=== PATIENT | female | born 1935 | race Caucasian/White ===

== ENCOUNTER → 2021-10-22 09:13 | Outpatient (BNVA) | payer MEDICARE, OTHER, SELFPAY | PROVIDERS: Visit Provider Internal Medicine | DX: D68.51 Activated protein C resistance (principal); Z51.81 Encounter for therapeutic drug level monitoring; Z79.01 Long term (current) use of anticoagulants | CPT/HCPCS: 85610; 99202 ==

== ENCOUNTER → 2021-10-26 09:34 | Outpatient (BNVA) | payer MEDICARE, OTHER, SELFPAY | PROVIDERS: Visit Provider Internal Medicine | DX: D68.51 Activated protein C resistance (principal); Z51.81 Encounter for therapeutic drug level monitoring; Z79.01 Long term (current) use of anticoagulants | CPT/HCPCS: 85610; 99211 ==

== ENCOUNTER → 2021-10-29 09:42 | Outpatient (BNVA) | payer MEDICARE, OTHER, SELFPAY | PROVIDERS: Visit Provider Internal Medicine | DX: D68.51 Activated protein C resistance (principal); Z51.81 Encounter for therapeutic drug level monitoring; Z79.01 Long term (current) use of anticoagulants | CPT/HCPCS: 85610; 99211 ==

== ENCOUNTER → 2021-11-04 10:19 | Outpatient (BNVA) | payer MEDICARE, OTHER, SELFPAY | PROVIDERS: Visit Provider Internal Medicine | DX: D68.51 Activated protein C resistance (principal); Z79.01 Long term (current) use of anticoagulants; Z51.81 Encounter for therapeutic drug level monitoring | CPT/HCPCS: 85610; 99212 ==

== ENCOUNTER → 2021-11-08 08:43 | Outpatient (BNVA) | payer MEDICARE, OTHER, SELFPAY | PROVIDERS: Visit Provider Internal Medicine | DX: D68.51 Activated protein C resistance (principal); Z79.01 Long term (current) use of anticoagulants; Z51.81 Encounter for therapeutic drug level monitoring | CPT/HCPCS: 85610; 99211 ==

== ENCOUNTER → 2021-11-15 09:29 | Outpatient (BNVA) | payer MEDICARE, OTHER, SELFPAY | PROVIDERS: Visit Provider Internal Medicine | DX: D68.51 Activated protein C resistance (principal); Z51.81 Encounter for therapeutic drug level monitoring; Z79.01 Long term (current) use of anticoagulants | CPT/HCPCS: 85610; 99212 ==

== ENCOUNTER → 2021-11-18 09:25 | Outpatient (BNVA) | payer MEDICARE, OTHER, SELFPAY | PROVIDERS: Visit Provider Internal Medicine | DX: D68.51 Activated protein C resistance (principal); Z79.01 Long term (current) use of anticoagulants; Z51.81 Encounter for therapeutic drug level monitoring | CPT/HCPCS: 85610; 99211 ==

== ENCOUNTER → 2021-11-23 09:25 | Outpatient (BNVA) | payer MEDICARE, OTHER, SELFPAY | PROVIDERS: Visit Provider Internal Medicine | DX: D68.51 Activated protein C resistance (principal); Z51.81 Encounter for therapeutic drug level monitoring; Z79.01 Long term (current) use of anticoagulants | CPT/HCPCS: 85610; 99211 ==

== ENCOUNTER 2021-11-26 11:38 | Outpatient (REF) | payer MEDICARE, OTHER, SELFPAY ==
[2021-11-26 12:20] LABS: Hematocrit 38.8 % (37.0-47.0); Hemoglobin 12.8 g/dl (12.0-16.0); Mean Corpuscular Hemoglobin 29.6 pg (27.0-33.0); Mean Corpuscular Volume 89.8 fL (80.0-98.0); Mean Platelet Volume 11.4 fL (9.4-12.3); Platelet Count 284 X10*3/uL (160-400); Red Blood Count 4.32 X10*6/uL (4.20-5.50); Red Cell Distribution Width 13.1 % (11.0-16.0); White Blood Count 8.2 X10*3/uL (4.8-10.8)
[2021-11-26 12:26] LABS: INTERNATIONAL NORM RATIO 1.5 (0.9-1.1); Prothrombin Time 17.3 SEC (10.0-13.1)
[2021-11-26 12:45] LABS: Anion Gap 14 (12-20); Blood Urea Nitrogen 19 mg/dL (9-16); Calcium 9.5 mg/dL (8.4-10.2); Carbon Dioxide 26 mmol/L (22-29); Chloride 105 mmol/L (96-108); Estimated Glomerular Filt Rate > 60; Glucose Random 84 mg/dL (60-115); Potassium 4.2 mmol/L (3.3-5.1); Sodium 141 mmol/L (135-145)
== END 2021-11-26 11:39 | disposition home or self-care (01) ==
LOC: HO.LAB 11:38
PROVIDERS: Visit Provider Internal Medicine
DX: D68.51 Activated protein C resistance (principal); Z51.81 Encounter for therapeutic drug level monitoring; Z79.01 Long term (current) use of anticoagulants
CPT/HCPCS: 36415; 80048; 85027; 85610; 99212

== ENCOUNTER → 2021-12-03 10:08 | Outpatient (BNVA) | payer MEDICARE, OTHER, SELFPAY | PROVIDERS: PCP Internal Medicine Nephrology; Visit Provider Internal Medicine | DX: D68.51 Activated protein C resistance (principal); Z79.01 Long term (current) use of anticoagulants; Z51.81 Encounter for therapeutic drug level monitoring | CPT/HCPCS: 85610; 99211 ==

== ENCOUNTER → 2021-12-10 10:05 | Outpatient (BNVA) | payer MEDICARE, OTHER, SELFPAY | PROVIDERS: PCP Internal Medicine Nephrology; Visit Provider Internal Medicine | DX: D68.51 Activated protein C resistance (principal); Z79.01 Long term (current) use of anticoagulants; Z51.81 Encounter for therapeutic drug level monitoring | CPT/HCPCS: 85610; 99211 ==

== ENCOUNTER → 2021-12-24 09:56 | Outpatient (BNVA) | payer MEDICARE, OTHER, SELFPAY | PROVIDERS: PCP Internal Medicine Nephrology; Visit Provider Internal Medicine | DX: D68.51 Activated protein C resistance (principal); Z79.01 Long term (current) use of anticoagulants; Z51.81 Encounter for therapeutic drug level monitoring | CPT/HCPCS: 85610; 99211 ==

== ENCOUNTER → 2022-01-10 09:45 | Outpatient (BNVA) | payer MEDICARE, OTHER, SELFPAY | PROVIDERS: PCP Internal Medicine Nephrology; Visit Provider Internal Medicine | DX: D68.51 Activated protein C resistance (principal); Z79.01 Long term (current) use of anticoagulants; Z51.81 Encounter for therapeutic drug level monitoring | CPT/HCPCS: 85610; 99211 ==

== ENCOUNTER → 2022-01-31 10:00 | Outpatient (BNVA) | payer MEDICARE, OTHER, SELFPAY | PROVIDERS: PCP Internal Medicine Nephrology; Visit Provider Internal Medicine | DX: D68.51 Activated protein C resistance (principal); Z79.01 Long term (current) use of anticoagulants; Z51.81 Encounter for therapeutic drug level monitoring | CPT/HCPCS: 85610; 99211 ==

== ENCOUNTER → 2022-02-14 09:47 | Outpatient (BNVA) | payer MEDICARE, OTHER, SELFPAY | PROVIDERS: PCP Internal Medicine Nephrology; Visit Provider Internal Medicine | DX: D68.51 Activated protein C resistance (principal); Z79.01 Long term (current) use of anticoagulants; Z51.81 Encounter for therapeutic drug level monitoring | CPT/HCPCS: 85610; 99211 ==

== ENCOUNTER → 2022-03-01 09:49 | Outpatient (BNVA) | payer MEDICARE, OTHER, SELFPAY | PROVIDERS: PCP Internal Medicine Nephrology; Visit Provider Internal Medicine | DX: D68.51 Activated protein C resistance (principal); Z79.01 Long term (current) use of anticoagulants; Z51.81 Encounter for therapeutic drug level monitoring | CPT/HCPCS: 85610; 99211 ==

== ENCOUNTER → 2022-03-23 10:16 | Outpatient (BNVA) | payer MEDICARE, OTHER, SELFPAY | PROVIDERS: PCP Internal Medicine Nephrology; Visit Provider Internal Medicine | DX: D68.51 Activated protein C resistance (principal); Z79.01 Long term (current) use of anticoagulants; Z51.81 Encounter for therapeutic drug level monitoring | CPT/HCPCS: 85610; 99211 ==

== ENCOUNTER → 2022-04-19 09:59 | Outpatient (BNVA) | payer MEDICARE, OTHER, SELFPAY | PROVIDERS: PCP Internal Medicine; Visit Provider Internal Medicine | DX: D68.51 Activated protein C resistance (principal); Z79.01 Long term (current) use of anticoagulants; Z51.81 Encounter for therapeutic drug level monitoring | CPT/HCPCS: 85610; 99211 ==

== ENCOUNTER 2022-05-07 11:54 | Outpatient (REF) | payer MEDICARE, OTHER, SELFPAY ==
[2022-05-07 13:57] LABS: Appearance Urine Cloudy; Color Urine Yellow; Glucose Urine UA Negative (Negative); Leukocyte Esterase Urine Large (3+) (Negative); Nitrite Urine Negative (Negative); Specific Gravity - Urine <= 1.005 (1.005-1.025); UMIC TRIGGER UACC YES; Urine Blood Negative (Negative); Urine Ketones Negative (Negative); Urine Protein Negative (Neg-Trace)
[2022-05-07 14:03] LABS: Bacteria Urine 4+ (None Seen); Hyaline Casts Urine 0-2 /LPF (0-2); Squamous Epithelial Cell Urine 0-2 /HPF (0-2); UACC Culture Trigger YES; WBC Urine >50 /HPF (0-5)
== END 2022-05-07 11:55 | disposition home or self-care (01) ==
LOC: HO.HMGCLDS 11:54
PROVIDERS: PCP Internal Medicine; Visit Provider Internal Medicine
DX: N18.30 Chronic kidney disease, stage 3 unspecified (principal); R82.90 Unspecified abnormal findings in urine
CPT/HCPCS: 81001; 87086

== ENCOUNTER → 2022-05-09 11:18 | Outpatient (BNVA) | payer MEDICARE, OTHER, SELFPAY | PROVIDERS: PCP Internal Medicine; Visit Provider Internal Medicine | DX: Z79.01 Long term (current) use of anticoagulants (principal) ==

== ENCOUNTER → 2022-05-17 09:57 | Outpatient (BNVA) | payer MEDICARE, OTHER, SELFPAY | PROVIDERS: PCP Internal Medicine; Visit Provider Internal Medicine | DX: D68.51 Activated protein C resistance (principal); Z79.01 Long term (current) use of anticoagulants; Z51.81 Encounter for therapeutic drug level monitoring | CPT/HCPCS: 85610; 99211 ==

== ENCOUNTER → 2022-05-31 10:13 | Outpatient (BNVA) | payer MEDICARE, OTHER, SELFPAY | PROVIDERS: PCP Internal Medicine; Visit Provider Internal Medicine | DX: D68.51 Activated protein C resistance (principal); Z51.81 Encounter for therapeutic drug level monitoring; Z79.01 Long term (current) use of anticoagulants | CPT/HCPCS: 85610; 99211 ==

== ENCOUNTER → 2022-06-21 08:47 | Outpatient (BNVA) | payer MEDICARE, OTHER, SELFPAY | PROVIDERS: PCP Internal Medicine; Visit Provider Internal Medicine | DX: D68.51 Activated protein C resistance (principal); Z79.01 Long term (current) use of anticoagulants; Z51.81 Encounter for therapeutic drug level monitoring | CPT/HCPCS: 85610; 99211 ==

== ENCOUNTER → 2022-07-12 10:15 | Outpatient (BNVA) | payer MEDICARE, OTHER, SELFPAY | PROVIDERS: PCP Internal Medicine; Visit Provider Internal Medicine | DX: D68.51 Activated protein C resistance (principal); Z79.01 Long term (current) use of anticoagulants; Z51.81 Encounter for therapeutic drug level monitoring | CPT/HCPCS: 85610; 99211 ==

== ENCOUNTER 2022-07-19 10:04 | Outpatient (REF) | payer MEDICARE, OTHER, SELFPAY ==
[2022-07-19 10:12] LABS: Appearance Urine Cloudy; Color Urine Yellow; Glucose Urine UA Negative (Negative); Leukocyte Esterase Urine Large (3+) (Negative); Nitrite Urine Negative (Negative); Specific Gravity - Urine 1.015 (1.005-1.025); UMIC TRIGGER UACC YES; Urine Blood Trace (Negative); Urine Ketones Negative (Negative); Urine Protein Negative (Neg-Trace)
[2022-07-19 10:17] LABS: Bacteria Urine 1+ (None Seen); Hyaline Casts Urine 0-2 /LPF (0-2); RBC Urine 0-2 /HPF (0-2); Squamous Epithelial Cell Urine 0-2 /HPF (0-2); UACC Culture Trigger YES; WBC Urine >50 /HPF (0-5)
== END 2022-07-19 10:05 | disposition home or self-care (01) ==
LOC: HO.LNP 10:04
PROVIDERS: Visit Provider Internal Medicine
DX: N18.30 Chronic kidney disease, stage 3 unspecified (principal); R82.90 Unspecified abnormal findings in urine
CPT/HCPCS: 81001; 87086

== ENCOUNTER → 2022-08-09 10:16 | Outpatient (BNVA) | payer MEDICARE, OTHER, SELFPAY | PROVIDERS: PCP Internal Medicine; Visit Provider Internal Medicine | DX: D68.51 Activated protein C resistance (principal); Z79.01 Long term (current) use of anticoagulants; Z51.81 Encounter for therapeutic drug level monitoring | CPT/HCPCS: 85610; 99211 ==

== ENCOUNTER → 2022-08-23 10:06 | Outpatient (BNVA) | payer MEDICARE, OTHER, SELFPAY | PROVIDERS: PCP Internal Medicine; Visit Provider Internal Medicine | DX: D68.51 Activated protein C resistance (principal); Z79.01 Long term (current) use of anticoagulants; Z51.81 Encounter for therapeutic drug level monitoring | CPT/HCPCS: 85610; 99211 ==

== ENCOUNTER 2022-09-19 09:32 | Outpatient (REF) | payer MEDICARE, OTHER, SELFPAY ==
[2022-09-19 11:46] LABS: Anion Gap 12 (12-20); Blood Urea Nitrogen 26 mg/dL (9-16); Calcium 9.4 mg/dL (8.4-10.2); Carbon Dioxide 27 mmol/L (22-29); Chloride 110 mmol/L (96-108); Cholesterol 242 mg/dL; Estimated Glomerular Filt Rate > 60; Glucose Fasting 78 mg/dL (60-99); HDL Cholesterol 63 mg/dL; LDL Cholesterol Calculated 165 mg/dl; Potassium 4.2 mmol/L (3.3-5.1); Sodium 145 mmol/L (135-145); Triglycerides 70 mg/dL
[2022-09-20 12:34] LABS: Appearance Urine Cloudy; Color Urine Yellow; Glucose Urine UA Negative (Negative); Leukocyte Esterase Urine Large (3+) (Negative); Nitrite Urine Negative (Negative); PH 7.5 (5.0-9.0); UMIC TRIGGER UACC YES; Urine Blood Negative (Negative); Urine Ketones Negative (Negative); Urine Protein Negative (Neg-Trace)
[2022-09-20 12:45] LABS: Bacteria Urine 1+ (None Seen); Hyaline Casts Urine 0-2 /LPF (0-2); RBC Urine 0-2 /HPF (0-2); UACC Culture Trigger YES; WBC Urine 0-5 /HPF (0-5)
== END 2022-09-19 09:33 | disposition home or self-care (01) ==
LOC: HO.LAB 09:32
PROVIDERS: Internal Medicine; PCP Nurse Practitioner Family; Visit Provider Nurse Practitioner Family
DX: N18.30 Chronic kidney disease, stage 3 unspecified (principal); R82.90 Unspecified abnormal findings in urine; Z13.1 Encounter for screening for diabetes mellitus; Z13.220 Encounter for screening for lipoid disorders
CPT/HCPCS: 36415; 80048; 80061; 81001; 81003; 87086

== ENCOUNTER → 2022-09-20 09:39 | Outpatient (BNVA) | payer MEDICARE, OTHER, SELFPAY | PROVIDERS: PCP Nurse Practitioner Family; Visit Provider Internal Medicine | DX: D68.51 Activated protein C resistance (principal); Z79.01 Long term (current) use of anticoagulants; Z51.81 Encounter for therapeutic drug level monitoring | CPT/HCPCS: 85610; 99211 ==

== ENCOUNTER → 2022-09-23 09:56 | Outpatient (BNVA) | payer MEDICARE, OTHER, SELFPAY | PROVIDERS: PCP Nurse Practitioner Family; Visit Provider Internal Medicine | DX: D68.51 Activated protein C resistance (principal); Z79.01 Long term (current) use of anticoagulants; Z51.81 Encounter for therapeutic drug level monitoring | CPT/HCPCS: 85610; 99211 ==

== ENCOUNTER → 2022-10-07 09:46 | Outpatient (BNVA) | payer MEDICARE, OTHER, SELFPAY | PROVIDERS: PCP Nurse Practitioner Family; Visit Provider Internal Medicine | DX: D68.51 Activated protein C resistance (principal); Z79.01 Long term (current) use of anticoagulants; Z51.81 Encounter for therapeutic drug level monitoring | CPT/HCPCS: 85610; 99211 ==

== ENCOUNTER 2022-10-28 09:54 | Outpatient (AMB) | payer MEDICARE, OTHER, SELFPAY ==
[2022-10-28 10:19] LABS: Prothrombin Time Whole Bld POC 36.9 sec (11.1-13.5); ~PT, ~INR - Anti Coag Clinic 3.1 (0.9-1.1)
--- NOTE | 2022-10-28 10:20 | MHC.OFFVISCO ---
Intake Intake Visit Reasons: Anticoagulation Allergies No Known Allergies Allergy (Verified 10/28/22 10:05) Medication List - Last Reconciled 10/28/22 by Elisa Barrios RN cholecalciferol (vitamin D3) PO denosumab (Prolia) 60 mg subcut [id number] losartan-hydrochlorothiazide 50-12.5 mg 1 tab PO DAILY 90 days [magnesium PO] warfarin 3 mg See Protocol PO .QD 90 days zolpidem 5 mg PO BEDTIME PRN Nursing Note INR: 3.0 in therapeutic range Medications and supplements reviewed No changes in health, diet, medications, or supplements, Denies any signs and symptoms of bleeding or bruising or clotting. Bleeding, bruising, clotting discussed Nutritional guidance given - EAT THE GREENS OR BLUEBERRIES YOU LIKE WEEKLY - HAS BOOST DAILY Dose: 3MG DAILY F/U INR: 3 WEEKS Patient verbalizes understanding of instructions given Anti-Coag Initial Assessment Social Hx Patient Tobacco Use Status: Never used Tobacco alcohol intake: current Alcohol intake frequency: a few times a month Cardiovascular Hx: HTN Lung Disease HX: DVT/PE Musculoskeletal Hx: Arthritis and Osteoporosis Hx: Kidney Disease (MONITORING) Cancer HX: No Psych. Illness/Depression: No Coding Level of Care Code Est Patient Level 1 Diagnoses Current use of anticoagulant therapy Z79.01 Results AMB INR Fingerstick AMB INR Fingerstick 3.0 Last Edit by Elisa Barrios RN on 10/28/22 10:12 [facility] [place] Assessment & Plan Assessment & Plan (1) Current use of anticoagulant therapy: Code(s): Z79.01 - assisted (current) use of anticoagulants Category: Medical Medications: New food supplemt, lactose-reduced (Boost) PO
== END 2022-10-28 10:21 | disposition home or self-care (01) ==
LOC: HO.ACS 09:54
PROVIDERS: PCP Nurse Practitioner Family; Visit Provider Internal Medicine
DX: Z79.01 Long term (current) use of anticoagulants (principal)

== ENCOUNTER → 2022-10-28 09:54 | Outpatient (BNVA) | payer MEDICARE, OTHER, SELFPAY | PROVIDERS: PCP Nurse Practitioner Family; Visit Provider Internal Medicine | DX: D68.51 Activated protein C resistance (principal); Z79.01 Long term (current) use of anticoagulants; Z51.81 Encounter for therapeutic drug level monitoring | CPT/HCPCS: 85610; 99211 ==

== ENCOUNTER → 2022-11-04 08:48 | Outpatient (REF) | payer MEDICARE, OTHER, SELFPAY ==
--- NOTE | 2022-11-04 08:51 | HM_ITS ---
* Total monitoring time 2 days and 13 hours. * Average ventricular rate 55/Min. Range 35 to 130/Min. * About 77% of the time, rate less than 60/Min. * Rare PACs. * Rare PVCs. Some couplets. Overall very low burden. * No significant pauses or AV blocks. * No patient markers or events in diary. MTDD
--- NOTE | 2022-11-04 08:51 | CA_ITS ---
Transthoracic Echocardiogram Patient (Last, First, Middle): Nanda Maher, Gender: Female Date of : 1935 Age: 86 Procedure Date: 11/04/2022 Procedure Type: Transthoracic Echocardiogram Location: OP Height: 149.86 cm Weight: 50.8 kg BSA: 1.44 m2 Heart Rate: 58 bpm BP: 130 / 80 mmHg Tool Shaper Setup Operator: SB Referring MD: Scarlet Washington MD Symptoms: R00.2 - Palpitations Study Quality: Adequate ECG Rhythm: Bradycardia Conclusions: - Normal left ventricular size, thickness, systolic function, and wall motion. The visually estimated ejection fraction is between 60-65%. - Normal right ventricular cavity size and systolic function. - No significant valvular or pericardial pathology. Findings Left Ventricle Normal left ventricular size, thickness, systolic function, and wall motion. The visually estimated ejection fraction is between 60-65%. Abnormal diastolic function is noted. Spectral Doppler is indicative of an impaired relaxation filling pattern. E/E prime ratio is between 8 and 15 consistent with indeterminate filling pressures. Right Ventricle Normal right ventricular cavity size and systolic function. Atria The left atrium is normal in size. The right atrium is normal in size. Aortic Valve There is a normal trileaflet aortic valve. There is no aortic valve stenosis. There is mild aortic valve regurgitation. Mitral Valve The mitral valve appears normal. There is no mitral valve regurgitation. There is no mitral valve stenosis. Pulmonic Valve Normal pulmonic valve structure and function. There is trace to mild pulmonic valve regurgitation. Tricuspid Valve Normal tricuspid valve structure. There is mild tricuspid valve regurgitation. Normal right atrial pressure. There is no evidence of pulmonary hypertension. Great Vessels All visible segments of the aorta are normal in size. The visualized portions of the pulmonary artery and branches are normal. Venous The inferior vena cava is normal in size and collapses greater than 50% with inspiration. Pericardium/Pleural There is no evidence of pericardial effusion. Prior Study Comparison No prior study available for comparison. Measurements 2D Linear Measurements IVSd: 1.15 0.6-0.9/0.6-1.0 cm LVIDd: 3.88 3.9-5.3/4.2-5.9 cm LVIDd Index: 2.69 2.4-3.2/2.2-3.1 cm/m2 LVIDs: 2.19 2.0-3.6 cm LVPWd: 0.55 0.7-1.1 cm LA Diam: 3.30 2.7-3.8/3.0-4.0 cm LAIDs Index: 2.29 1.5-2.3 cm/m2 LV Mass: 119.85 67-162/88-224 g LV Mass Index: 83.23 43-95/49-115 g/m2 LVOT Diam: 1.80 3.0+(-)1.3 cm 2D Systolic Function EF 4C: 60.30 >55% EF 2C: 56.80 >55% EF BiP: 58.60 >55% Mitral Valve MV Pk E: 0.56 MV PK A: 0.86 MV Decel Time: 204.00 E/A: 0.60 E'Lateral: 5.44 E'Medial: 4.90 E/E' Med: 11.40 E/E' Lat: 10.20 PHT: 60.00 MVA PHT: 3.67 Decel Gaston: 2.73 Aortic Valve AoV Pk Jer: 1.51 AoV Mn Jer: 0.96 AoV VTI: 0.32 AoV Pk Grad: 9.00 Aov Mn Grad: 5.00 COOKIE Cont.VTI: 1.78 AI Pk Jer: 3.80 AI Gaston: 1.63 LVOT LVOT Pk Jer: 0.99 LVOT Mn Jer: 0.66 LVOT VTI: 0.23 LVOT Pk Grad: 4.00 LVOT Mn Grad: 2.00 LVOT Diam: 1.80 LVOT Area: 2.54 Diastolic Function MV Pk E: 0.56 MV Pk A: 0.86 E/A: 0.60 E'Medial: 4.90 E/E' Med: 11.40 E' Laterial: 5.44 E/E' Lat: 10.20 Right Ventricle TAPSE (mm): 20.40 TVS' Jer: 11.40 Tricuspid Valve TR Pk Jer: 2.32 TR Pk Grad: 22.00 RA Press: 3.00 RVSP: 25.00 Great Vessels Aorta Sinus of Valsalva: 2.70 2.0-3.5 cm Ao Asc: 3.10 2.1-3.4 cm Pulmonary Veins Pulm Vein S/D 1.40 Pulmonary Valve PV Pk Jer: 0.79 Peak PV Grad: 3.00 Updated in Other Vendor System with Status of Final Weston Lin MD electronically signed on 11/06/2022 9:34:32 PM with status of Final
--- NOTE | 2022-11-04 08:51 | ECG_ITS ---
Test Reason : PALPITATIOS Blood Pressure : / mmHG Vent. Rate : 050 BPM Atrial Rate : 050 BPM P-R Int : 158 ms QRS Dur : 088 ms QT Int : 424 ms P-R-T Axes : 042 -17 017 degrees QTc Int : 386 ms Sinus bradycardia Otherwise normal ECG No previous ECGs available Referred By: Scarlet Washington Electronically Signed By:Weston Lin
== END ==
LOC: HO.CARD 08:48
PROVIDERS: PCP Nurse Practitioner Family; Visit Provider Internal Medicine
DX: R00.2 Palpitations (principal); I10 Essential (primary) hypertension
CPT/HCPCS: 93005; 93242; 93306

== ENCOUNTER → 2022-11-04 08:51 | Outpatient (BNV) | payer MEDICARE, OTHER, SELFPAY | PROVIDERS: PCP Nurse Practitioner Family; Visit Provider Internal Medicine Cardiovascular Disease | DX: I49.1 Atrial premature depolarization (principal); R00.2 Palpitations | CPT/HCPCS: 93010; 93244; 93306 ==

== ENCOUNTER 2022-11-25 09:36 | Outpatient (AMB) | payer MEDICARE, OTHER, SELFPAY ==
[2022-11-25 09:45] LABS: ~PT, ~INR - Anti Coag Clinic 2.5 (0.9-1.1)
--- NOTE | 2022-11-25 09:49 | MHC.OFFVISCO ---
Intake Intake Visit Reasons: Anticoagulation Allergies No Known Allergies Allergy (Verified 11/25/22 09:41) Medication List - Last Reconciled 11/25/22 by Daisy Fernando RN cholecalciferol (vitamin D3) PO denosumab (Prolia) 60 mg subcut [id number] food supplemt, lactose-reduced (Boost) PO losartan-hydrochlorothiazide 50-12.5 mg 1 tab PO DAILY 90 days [magnesium PO] tramadol 50 mg PO TID PRN tramadol 50 mg PO TID PRN warfarin 3 mg See Protocol PO .QD 90 days zolpidem 5 mg PO BEDTIME PRN Nursing Note Amb to [facility] using walker feeling well, sts missed last appt just totally forgot Medications and supplements reviewed, sts she never started on the rosuvastatin No other changes in health, diet, medications, or supplements Denies any unusual signs and symptoms of bruising, bleeding Denies any new Chest pain, SOB, or clotting INR: 2.5 in therapeutic range Nutritional guidance given: balance greens and reds in diet Dose: continue usual dosing; 3mg daily F/U INR:4 weeks Patient verbalizes understanding of instructions given with accurate read back/ teach back of dosing Anti-Coag Initial Assessment Social Hx Patient Tobacco Use Status: Never used Tobacco alcohol intake: current Alcohol intake frequency: a few times a month Cardiovascular Hx: HTN Lung Disease HX: DVT/PE Musculoskeletal Hx: Arthritis and Osteoporosis Hx: Kidney Disease (MONITORING) Cancer HX: No Psych. Illness/Depression: No Coding Level of Care Code Est Patient Level 1 Diagnoses Current use of anticoagulant therapy Z79.01 Time Spent (min) 15 Assessment & Plan Assessment & Plan (1) Current use of anticoagulant therapy: Code(s): Z79.01 - watermaster (current) use of anticoagulants Category: Medical
== END 2022-11-25 09:56 | disposition home or self-care (01) ==
LOC: HO.ACS 09:36
PROVIDERS: PCP Nurse Practitioner Family; Visit Provider Internal Medicine
DX: Z79.01 Long term (current) use of anticoagulants (principal)

== ENCOUNTER → 2022-11-25 09:36 | Outpatient (BNVA) | payer MEDICARE, OTHER, SELFPAY | PROVIDERS: PCP Nurse Practitioner Family; Visit Provider Internal Medicine | DX: D68.51 Activated protein C resistance (principal); Z79.01 Long term (current) use of anticoagulants; Z51.81 Encounter for therapeutic drug level monitoring | CPT/HCPCS: 85610; 99211 ==

== ENCOUNTER 2022-12-27 08:59 | Outpatient (AMB) | payer MEDICARE, OTHER, SELFPAY ==
--- NOTE | 2022-12-27 09:32 | MHC.OFFVISCO ---
Intake Intake Visit Reasons: Anticoagulation Allergies No Known Allergies Allergy (Verified 12/27/22 09:29) Medication List - Last Reconciled 12/27/22 by Shanae Mccray RN cholecalciferol (vitamin D3) PO denosumab (Prolia) 60 mg subcut [id number] food supplemt, lactose-reduced (Boost) PO losartan-hydrochlorothiazide 50-12.5 mg 1 tab PO DAILY 90 days [magnesium PO] tramadol 50 mg PO TID PRN tramadol 50 mg PO TID PRN warfarin 3 mg See Protocol PO .QD 90 days zolpidem 5 mg PO BEDTIME PRN Nursing Note INR: 2.8-in therapeutic range Medications and supplements reviewed No changes in health, diet, medications, or supplements, Denies any signs and symptoms of bleeding or bruising or clotting. Bleeding, bruising, clotting discussed Nutritional guidance given Dose: 3mg x 7 F/U INR: pt req 5 weeks Patient verbalizes understanding of instructions given Anti-Coag Initial Assessment Social Hx Patient Tobacco Use Status: Never used Tobacco alcohol intake: current Alcohol intake frequency: a few times a month Cardiovascular Hx: HTN Lung Disease HX: DVT/PE Musculoskeletal Hx: Arthritis and Osteoporosis Hx: Kidney Disease (MONITORING) Cancer HX: No Psych. Illness/Depression: No Coding Level of Care Code Est Patient Level 1 Diagnoses Current use of anticoagulant therapy Z79.01 Results AMB INR Fingerstick AMB INR Fingerstick 2.8 Last Edit by Shanae Mccray RN on 12/27/22 09:33 Assessment & Plan Assessment & Plan (1) Current use of anticoagulant therapy: Code(s): Z79.01 - residential (current) use of anticoagulants Category: Medical
[2022-12-27 09:34] LABS: Prothrombin Time Whole Bld POC 33.2 sec (11.1-13.5); ~PT, ~INR - Anti Coag Clinic 2.8 (0.9-1.1)
== END 2022-12-27 09:37 | disposition home or self-care (01) ==
LOC: HO.ACS 08:59
PROVIDERS: PCP Internal Medicine; Visit Provider Internal Medicine
DX: Z79.01 Long term (current) use of anticoagulants (principal)

== ENCOUNTER → 2022-12-27 08:59 | Outpatient (BNVA) | payer MEDICARE, OTHER, SELFPAY | PROVIDERS: PCP Nurse Practitioner Family; Visit Provider Internal Medicine | DX: D68.51 Activated protein C resistance (principal); Z79.01 Long term (current) use of anticoagulants; Z51.81 Encounter for therapeutic drug level monitoring | CPT/HCPCS: 85610; 99211 ==

== ENCOUNTER 2023-01-16 11:21 | Outpatient (REF) | payer MEDICARE, OTHER, SELFPAY ==
[2023-01-16 14:02] LABS: Alanine Aminotransferase 12 U/L (0-31); Albumin Level 3.8 g/dL (3.5-5.0); Alkaline Phosphatase 61 U/L (39-117); Anion Gap 15 (12-20); Aspartate Amino Transferase 17 U/L (5-31); Bilirubin Total 0.5 mg/dL (0.0-1.0); Blood Urea Nitrogen 21 mg/dL (9-16); Calcium 9.7 mg/dL (8.4-10.2); Carbon Dioxide 24 mmol/L (22-29); Chloride 105 mmol/L (96-108); Cholesterol 221 mg/dL (<200); Estimated Glomerular Filt Rate 56; Glucose Random 82 mg/dL (60-115); HDL Cholesterol 58 mg/dL (>40); LDL Cholesterol Calculated 147 mg/dL (<100); Potassium 3.9 mmol/L (3.3-5.1); Sodium 140 mmol/L (135-145); Total Protein 6.3 g/dL (6.5-8.0); Triglycerides 80 mg/dL (<150)
== END 2023-01-16 11:22 | disposition home or self-care (01) ==
LOC: HO.LAB 11:21
PROVIDERS: PCP Internal Medicine; Visit Provider Internal Medicine
DX: E78.00 Pure hypercholesterolemia, unspecified (principal)
CPT/HCPCS: 36415; 80053; 80061

== ENCOUNTER 2023-01-17 12:46 | Outpatient (REF) | payer MEDICARE, OTHER, SELFPAY ==
[2023-01-17 12:55] LABS: Appearance Urine Cloudy; Color Urine Yellow; Glucose Urine UA Negative (Negative); Leukocyte Esterase Urine Large (3+) (Negative); Nitrite Urine Negative (Negative); UMIC TRIGGER UA YES; Urine Blood Negative (Negative); Urine Ketones Negative (Negative); Urine Protein Negative (Neg-Trace)
[2023-01-17 13:04] LABS: Bacteria Urine 2+ (None Seen); RBC Urine 0-2 /HPF (0-2); WBC Urine >50 /HPF (0-5)
== END 2023-01-17 12:47 | disposition home or self-care (01) ==
LOC: HO.LNP 12:46
PROVIDERS: Visit Provider Internal Medicine
DX: N39.0 Urinary tract infection, site not specified (principal)
CPT/HCPCS: 81001

== ENCOUNTER 2023-01-23 11:06 | Outpatient (AMB) | payer MEDICARE, OTHER, SELFPAY ==
--- NOTE | 2023-01-23 11:19 | MHC.PC.OV ---
Vital Signs 01/23/23 11:20 Height 4 ft 11 in Weight 111 lb 0.4 oz BMI 22.4 BP 150/88 H Blood Pressure Location Lt brachial Position Sitting Pulse 76 Pulse Source Pulse Oximeter Temp Source Skin Pulse Oximetry (%) 98 Oxygen Delivery Method Room Air Intake Visit Reasons: palpitations, cholesterol Clerk Guide Required: No Allergies No Known Allergies Allergy (Verified 01/23/23 11:19) Medication List - Last Reconciled 01/23/23 by Scarlet Washington MD cholecalciferol (vitamin D3) PO denosumab (Prolia) 60 mg subcut [id number] food supplemt, lactose-reduced (Boost) PO losartan-hydrochlorothiazide 50-12.5 mg 1 tab PO DAILY 90 days [magnesium PO] tramadol 50 mg PO TID PRN tramadol 50 mg PO TID PRN warfarin 3 mg See Protocol PO .QD 90 days zolpidem 5 mg PO BEDTIME PRN 90 days Tobacco use date assessed: 01/23/23 Fall risk assessment: No Falls in past year Last assessed Fall Risk: 01/23/23 Dental Screening Dental Screen Date: 01/23/23 Did you have a dental visit in the last 12 months?: No Did you have a dental problem in the last 6 months where you did not have access to dental care?: No HPI palpitations, cholesterol HPI Details 87-year-old female with chronic kidney disease factor 5 Leiden on anticoagulation due to DVT hypertension hypercholesterolemia last seen in September 2022. Patient is here for follow-up. Patient had a Holter monitor done in 11/10/2022Total monitoring time 2 days and 13 hours. Average ventricular rate 55/Min. Range 35 to 130/Min. About 77% of the time, rate less than 60/Min. Rare PACs. Rare PVCs. Some couplets. Overall very low burden. No significant pauses or AV blocks. No patient markers or events in diary. Patient also had echocardiogram November 06 2022Normal left ventricular size, thickness, systolic function, and wall motion. The visually estimated ejection fraction is between 60-65%. - Normal right ventricular cavity size and systolic function. - No significant valvular or pericardial pathology. BP at home sbp < 140 DBP < 90- good at home [facility] Medical History (Updated 10/07/22 @ 11:15 by Scarlet Washington MD) Screening for diabetes mellitus Screening for hyperlipidemia Surgical History History of cataract surgery Family History Mother No problems noted. Father No problems noted. Son No problems noted. Son No problems noted. Daughter No problems noted. Social History Housing: Apartment Alcohol intake: current Alcohol intake frequency: a few times a month Patient Tobacco Use Status: Never used Tobacco e-Cigarette/Vaping Use: Never Used Second Hand Smoke Exposure: No Current occupational status: retired Current occupation: RETIRED Current occupational exposures/hazards: No Cognitive needs: No Hearing needs: No Vision needs: Yes Questionnaire Thrive Questionnaire Date Thrive assessed: 10/07/22 AUDIT C Alcohol Use Questionnaire (AUDIT-C) 1. How often do you have a drink containing alcohol?: Monthly or less 2. How many drinks containing alcohol do you have on a typical day when you are drinking?: 1 or 2 3. How often do you have six or more drinks on one occasion?: Never Total Score: 1 Score Reviewed/Action Taken: No JOHN-7 AMB Questionnaire JOHN-7 Date JOHN - 7 assessed: 07/05/22 Source: Developed by Drs. Kamlesh Mckeon, Annette Palacio, Saurabh Mims and colleagues, with an educational lexi from [employer]. Physical exam (Primary Care) Vital Signs: Last Vital Signs Pulse 76 01/23/23 11:20 BP 150/88 H 01/23/23 11:20 Pulse Ox 98 01/23/23 11:20 Oxygen Delivery Method Room Air 01/23/23 11:20 BMI result Body Mass Index 22.4 Tobacco/Smoking Status: Tobacco use Status Tobacco use date assessed 01/23/23 01/23/23 11:20 Patient Tobacco Use Status Never used Tobacco 01/23/23 11:19 e-Cigarette/Vaping Use Never Used 01/23/23 11:19 Thrive Assessment: Date of Thrive Assessment Date Thrive assessed 10/07/22 01/23/23 11:19 Const General: alert; No acute distress Eyes Conjunctivae: conjunctivae normal Resp Auscultation: clear to auscultation bilaterally Cardio Rate: regular rate Rhythm: regular rhythm GI Inspection: Yes normal to inspection Extrem General: Yes normal to inspection and No edema Assessment and Plan Assessment & Plan (1) Hypertension: Code(s): I10 - Essential (primary) hypertension Plan: Continue with blood pressure medication. Decrease salt intake and exercise patient on losartan hydrochlorothiazide 50/12.5 (2) Deep venous thrombosis: Code(s): I82.409 - Acute embolism and thrombosis of unspecified deep veins of unspecified lower extremity Plan: Continue with anticoagulation patient on Coumadin (3) CKD (chronic kidney disease), stage III: Comment: Dr. Nino Post Code(s): N18.30 - Chronic kidney disease, stage 3 unspecified Plan: Stable last blood work is normal (4) Hypercholesterolemia: Code(s): E78.00 - Pure hypercholesterolemia, unspecified Plan: Avoid fried foods, chicken skin, eggs, butter margarine, pastries and meat. Be it pork or beef they have a lot of cholesterol patient not on any medication (5) Palpitations: Code(s): R00.2 - Palpitations Plan: Holter done negative results echocardiogram negative Medications: Changed From zolpidem 5 mg PO BEDTIME PRN 30 tabs 1RF insomnia G47.00 - Insomnia, unspecified To zolpidem 5 mg PO BEDTIME 90 days PRN 90 tabs 1RF insomnia G47.00 - Insomnia, unspecified Coding Level of Care Code Est Pt Level 4 (88957) Diagnoses Hypertension I10 Deep venous thrombosis I82.409 CKD (chronic kidney disease), stage III N18.30 Hypercholesterolemia E78.00 Palpitations R00.2
[2023-01-23 11:20] VITALS: BP 150/88; PULSE 76; O2SAT 98; BMI 22.4
== END 2023-01-23 12:18 | disposition home or self-care (01) ==
PROVIDERS: PCP Nurse Practitioner Family; Visit Provider Internal Medicine
DX: I12.9 Hypertensive chronic kidney disease with stage 1 through stage 4 chronic kidney disease, or unspecified chronic kidney disease (principal); N18.30 Chronic kidney disease, stage 3 unspecified; I82.409 Acute embolism and thrombosis of unspecified deep veins of unspecified lower extremity; R00.2 Palpitations
CPT/HCPCS: 99214

== ENCOUNTER 2023-02-07 10:09 | Outpatient (AMB) | payer MEDICARE, OTHER, SELFPAY ==
[2023-02-07 10:29] LABS: Prothrombin Time Whole Bld POC 32.4 sec (11.1-13.5); ~PT, ~INR - Anti Coag Clinic 2.7 (0.9-1.1)
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
== END 2023-02-07 10:35 | disposition home or self-care (01) ==
LOC: HO.ACS 10:09
PROVIDERS: PCP Internal Medicine; Visit Provider Internal Medicine
DX: Z79.01 Long term (current) use of anticoagulants (principal)

== ENCOUNTER → 2023-02-07 10:09 | Outpatient (BNVA) | payer MEDICARE, OTHER, SELFPAY | PROVIDERS: PCP Internal Medicine; Visit Provider Internal Medicine | DX: D68.51 Activated protein C resistance (principal); Z79.01 Long term (current) use of anticoagulants; Z51.81 Encounter for therapeutic drug level monitoring | CPT/HCPCS: 85610; 99211 ==

== ENCOUNTER 2023-03-14 10:33 | Outpatient (AMB) | payer MEDICARE, OTHER, SELFPAY ==
--- NOTE | 2023-03-14 10:38 | MHC.OFFVISCO ---
Intake Intake Visit Reasons: Anticoagulation Allergies No Known Allergies Allergy (Verified 03/14/23 10:33) Medication List - Last Reconciled 03/14/23 by Shanae Mccray RN cholecalciferol (vitamin D3) PO clotrimazole 1% 1 appl topical BID 4 weeks denosumab (Prolia) 60 mg subcut [id number] food supplemt, lactose-reduced (Boost) PO losartan-hydrochlorothiazide 50-12.5 mg 1 tab PO DAILY 90 days [magnesium PO] tramadol 50 mg PO TID PRN warfarin 3 mg See Protocol PO .QD 90 days zolpidem 5 mg PO BEDTIME PRN 90 days Nursing Note INR 3.5-?? out of therapeutic range- 2-3 Medications and supplements reviewed Patient status: amb with walker Medications or supplements: no changes Diet: same Denies any signs and symptoms of bleeding or clotting or unusual bruising Bleeding, bruising, clotting discussed Nutritional guidance given: eat greens to lower inr pt has limited greens available so will reduce dose today to 1mg Dose: 1mg today then cont 3mg daily F/U INR Date :2 weeks? Patient verbalizing understanding of instructions given. Anti-Coag Initial Assessment Social Hx Patient Tobacco Use Status: Never used Tobacco alcohol intake: current Alcohol intake frequency: a few times a month Cardiovascular Hx: HTN Lung Disease HX: DVT/PE Musculoskeletal Hx: Arthritis and Osteoporosis Hx: Kidney Disease (MONITORING) Cancer HX: No Psych. Illness/Depression: No Coding Level of Care Code Est Patient Level 1 Results AMB INR Fingerstick AMB INR Fingerstick 3.5 Last Edit by Shanae Mccray RN on 03/14/23 10:40
[2023-03-14 10:40] LABS: Prothrombin Time Whole Bld POC 41.9 sec (11.1-13.5); ~PT, ~INR - Anti Coag Clinic 3.5 (0.9-1.1)
== END 2023-03-14 10:48 | disposition home or self-care (01) ==
LOC: HO.ACS 10:33
PROVIDERS: PCP Internal Medicine; Visit Provider Internal Medicine
DX: Z79.01 Long term (current) use of anticoagulants (principal)

== ENCOUNTER → 2023-03-14 10:33 | Outpatient (BNVA) | payer MEDICARE, OTHER, SELFPAY | PROVIDERS: PCP Internal Medicine; Visit Provider Internal Medicine | DX: D68.51 Activated protein C resistance (principal); Z79.01 Long term (current) use of anticoagulants; Z51.81 Encounter for therapeutic drug level monitoring | CPT/HCPCS: 85610; 99211 ==

== ENCOUNTER 2023-03-28 10:59 | Outpatient (AMB) | payer MEDICARE, OTHER, SELFPAY ==
[2023-03-28 11:07] LABS: Prothrombin Time Whole Bld POC 34.3 sec (11.1-13.5); ~PT, ~INR - Anti Coag Clinic 2.9 (0.9-1.1)
--- NOTE | 2023-03-28 11:13 | MHC.OFFVISCO ---
Intake Intake Visit Reasons: Anticoagulation Allergies No Known Allergies Allergy (Verified 03/28/23 11:02) Medication List - Last Reconciled 03/28/23 by Elisa Barrios RN cholecalciferol (vitamin D3) PO clotrimazole 1% 1 appl topical BID 4 weeks denosumab (Prolia) 60 mg subcut [id number] food supplemt, lactose-reduced (Boost) PO losartan-hydrochlorothiazide 50-12.5 mg 1 tab PO DAILY 90 days [magnesium PO] tramadol 50 mg PO TID PRN warfarin 3 mg See Protocol PO .QD 90 days zolpidem 5 mg PO BEDTIME PRN 90 days Nursing Note INR: 2.9 in therapeutic range Medications and supplements reviewed No changes in health, diet, medications, or supplements, Denies any signs and symptoms of bleeding or bruising or clotting. Bleeding, bruising, clotting discussed Nutritional guidance given Dose: 3mg daily F/U INR: 1 month Patient verbalizes understanding of instructions given Anti-Coag Initial Assessment Social Hx Patient Tobacco Use Status: Never used Tobacco alcohol intake: current Alcohol intake frequency: a few times a month Cardiovascular Hx: HTN Lung Disease HX: DVT/PE Musculoskeletal Hx: Arthritis and Osteoporosis Hx: Kidney Disease (MONITORING) Cancer HX: No Psych. Illness/Depression: No Coding Level of Care Code Est Patient Level 1 Diagnoses Current use of anticoagulant therapy Z79.01 Assessment & Plan Assessment & Plan (1) Current use of anticoagulant therapy: Code(s): Z79.01 - FPC (current) use of anticoagulants Category: Medical
== END 2023-03-28 11:16 | disposition home or self-care (01) ==
LOC: HO.ACS 10:59
PROVIDERS: PCP Internal Medicine; Visit Provider Internal Medicine
DX: Z79.01 Long term (current) use of anticoagulants (principal)

== ENCOUNTER → 2023-03-28 10:59 | Outpatient (BNVA) | payer MEDICARE, OTHER, SELFPAY | PROVIDERS: PCP Internal Medicine; Visit Provider Internal Medicine | DX: D68.51 Activated protein C resistance (principal); Z79.01 Long term (current) use of anticoagulants; Z51.81 Encounter for therapeutic drug level monitoring | CPT/HCPCS: 85610; 99211 ==

== ENCOUNTER 2023-05-08 10:16 | Outpatient (AMB) | payer MEDICARE, OTHER, SELFPAY ==
[2023-05-08 10:49] LABS: Prothrombin Time Whole Bld POC 34.2 sec (11.1-13.5); ~PT, ~INR - Anti Coag Clinic 2.8 (0.9-1.1)
--- NOTE | 2023-05-08 10:51 | MHC.OFFVISCO ---
Intake Intake Visit Reasons: Anticoagulation Allergies No Known Allergies Allergy (Verified 05/08/23 11:03) Medication List - Last Reconciled 05/08/23 by Daisy Fernando RN cholecalciferol (vitamin D3) PO clotrimazole 1% 1 appl topical BID 4 weeks denosumab (Prolia) 60 mg subcut [id number] food supplemt, lactose-reduced (Boost) PO losartan-hydrochlorothiazide 50-12.5 mg 1 tab PO DAILY 90 days [magnesium PO] tramadol 50 mg PO TID PRN warfarin 3 mg See Protocol PO .QD 90 days zolpidem 5 mg PO BEDTIME PRN 90 days Nursing Note Amb to [facility] using walker, feeling well, has PCP appt today Medications and supplements reviewed No changes in health, diet, medications, or supplements Denies any unusual signs and symptoms of bruising, bleeding Denies any new Chest pain, SOB, or clotting INR: 2.8 in therapeutic range Nutritional guidance given: balance greens and reds in diet Dose: continue usual dosing; 3mg daily F/U INR:1 month Patient verbalizes understanding of instructions given with accurate read back/ teach back of dosing Anti-Coag Initial Assessment Social Hx Patient Tobacco Use Status: Never used Tobacco alcohol intake: current Alcohol intake frequency: a few times a month Cardiovascular Hx: HTN Lung Disease HX: DVT/PE Musculoskeletal Hx: Arthritis and Osteoporosis Hx: Kidney Disease (MONITORING) Cancer HX: No Psych. Illness/Depression: No Questionnaires HAS-BLED Does the patient had uncontrolled Hypertension?: No Does the patient have renal disease?: Yes Does the patient have liver disease?: No Does the patient have a history of stroke?: No Has the patient had major bleeding or predisposition to bleeding?: No Does the patient have labile INRs?: No Is the patient over 65 years of age?: Yes Is the patient on medications that gives them a predisposition to bleeding?: Yes Does the patient use alcohol?: No HAS-BLED Score: 3 CHADSVASC Age: 75 or over Gender: Female Does the patient have a history of CHF?: No Does the patient have a history of Hypertension?: Yes Does the patient have a history of Stroke/TIA/Thromboembolism?: Yes Does the patient have a history of Vascular Disease (prior KS, PAD or aortic plaque)?: No Does the patient have a history of Diabetes?: Yes CHADS VACS Score: 7 Myrna Prediction Score Rsk VTE Active Cancer: No Previous VTE, excluding superficial vein thrombosis: Yes Reduced mobility: No Already known Thrombophilic Condition: Yes With-in last month Trauma and/or Surgery: No Elderly 70 year or older: Yes Heart and/or Respiratory Failure: No Acute Myocardial infarction and/or Ischemic Stroke: No Acute Infection and/or Rheumatologic Disorder: No Obesity (BMI 30 or greater): No Ongoing Hormonal Treatment: No Score: 7 Myrna Score less than 4; Low Risk of VTE Myrna Score 4 or greater; High Risk of VTE Coding Level of Care Code Est Patient Level 1 Diagnoses Current use of anticoagulant therapy Z79.01 Time Spent (min) 15 Assessment & Plan Assessment & Plan (1) Current use of anticoagulant therapy: Code(s): Z79.01 - prison (current) use of anticoagulants Category: Medical
== END 2023-05-08 11:14 | disposition home or self-care (01) ==
LOC: HO.ACS 10:16
PROVIDERS: PCP Internal Medicine; Visit Provider Internal Medicine
DX: Z79.01 Long term (current) use of anticoagulants (principal)

== ENCOUNTER → 2023-05-08 10:16 | Outpatient (BNVA) | payer MEDICARE, OTHER, SELFPAY | PROVIDERS: PCP Internal Medicine; Visit Provider Internal Medicine | DX: D68.51 Activated protein C resistance (principal); Z79.01 Long term (current) use of anticoagulants; Z51.81 Encounter for therapeutic drug level monitoring | CPT/HCPCS: 85610; 99211 ==

== ENCOUNTER 2023-05-08 11:01 | Outpatient (AMB) | payer MEDICARE, OTHER, SELFPAY ==
[2023-05-08 11:02] VITALS: BP 130/82; PULSE 72; O2SAT 99; BMI 22.4
--- NOTE | 2023-05-08 11:02 | A.OFFPC_ITS ---
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 Patient is here for follow-up. Review of the notes follows up with Rheumatology for bursitis and c ertain osteoarthritis left knee and osteoporosis on Reclast patient had Euflexxa injected this was in April 2023. Patient feels that it did not give some relief and will be follow-up with Rheumatology but is aware of the limitations of injections. Osteoarthritis will eventually end up with Orthopedic surgery. [facility] Medical History (Updated 10/07/22 @ 11:15 by Scarlet Washington MD) Screening for diabetes mellitus Screening for hyperlipidemia Surgical History History of cataract surgery Family History Mother No problems noted. Father No problems noted. Son No problems noted. Son No problems noted. Daughter No problems noted. Social History Housing: Apartment Alcohol intake: current Alcohol intake frequency: a few times a month Patient Tobacco Use Status: Never used Tobacco e-Cigarette/Vaping Use: Never Used Second Hand Smoke Exposure: No Current occupational status: retired Current occupation: RETIRED Current occupational exposures/hazards: No Cognitive needs: No Hearing needs: No Vision needs: Yes Questionnaire PHQ-9 Over the last 2 weeks, how often have you been bothered by any of the following problems? 1. Little interest or pleasure in doing things: not at all 2. Feeling down, depressed, or hopeless: not at all 3. Trouble falling or staying asleep, or sleeping too much: not at all 4. Feeling tired or having little energy: not at all 5. Poor appetite or overeating: not at all 6. Feeling bad about yourself - or that you are a failure or have let yourself or your family down: not at all 7. Trouble concentrating on things, such as reading the newspaper or watching television: not at all 8. Moving or speaking so slowly that other people could have noticed. Or the opposite - being so fidgety or restless that you have been moving around a lot more than usual: not at all 9. Thoughts that you would be better off or of hurting yourself in some way: not at all Total score: 0 Depression Screening Interpretation: Negative Depression Screening Done: Yes 32808 - PHQ-9 Billing: Yes Source: Developed by Drs. Kamlesh Mckeon, Annette Palacio, Saurabh Mims and colleagues, with an educational lexi from [employer]. Thrive Questionnaire Date Thrive assessed: 10/07/22 AUDIT C Alcohol Use Questionnaire (AUDIT-C) 1. How often do you have a drink containing alcohol?: Monthly or less 2. How many drinks containing alcohol do you have on a typical day when you are drinking?: 1 or 2 3. How often do you have six or more drinks on one occasion?: Never Total Score: 1 Score Reviewed/Action Taken: No JOHN-7 AMB Questionnaire JOHN-7 Date JOHN - 7 assessed: 05/08/23 Source: Developed by Drs. Kamlesh Mckeon, Annette Palacio, Saurabh Mims and colleagues, with an educational lexi from [employer] website. Physical exam (Primary Care) Vital Signs: Last Vital Signs Pulse 72 05/08/23 11:02 BP 130/82 05/08/23 11:02 Pulse Ox 99 05/08/23 11:02 Oxygen Delivery Method Room Air 05/08/23 11:02 BMI result Body Mass Index 22.4 Tobacco/Smoking Status: Tobacco use Status Tobacco use date assessed 05/08/23 05/08/23 11:04 Patient Tobacco Use Status Never used Tobacco 05/08/23 11:04 e-Cigarette/Vaping Use Never Used 05/08/23 11:04 PHQ-9: PHQ-9 Score PHQ-9: Total score 0 05/08/23 11:18 Depression Screening Interpretation: Negative Thrive Assessment: Date of Thrive Assessment Date Thrive assessed 10/07/22 05/08/23 11:04 Const General: alert; No acute distress Eyes Conjunctivae: conjunctivae normal Resp Auscultation: clear to auscultation bilaterally Cardio Rate: regular rate Rhythm: regular rhythm GI Inspection: Yes normal to inspection Extrem General: Yes normal to inspection and No edema Assessment and Plan Assessment & Plan (1) Heterozygous factor V Leiden mutation: Comment: 2018 Code(s): D68.51 - Activated protein C resistance Plan: Continue with anticoagulation with Coumadin (2) Deep venous thrombosis: Code(s): I82.409 - Acute embolism and thrombosis of unspecified deep veins of unspecified lower extremity Plan: Continue with anticoagulation with Coumadin (3) Localized osteoarthritis of left knee: Comment: [facility] Code(s): M17.12 - Unilateral primary osteoarthritis, left knee Plan: Patient follows up with arthritis treatment center and had some recent injection of Euflexxa. Patient continues to complain of some pain and has follow-up with Rheumatology. (4) Hypertension: Code(s): I10 - Essential (primary) hypertension Plan: Continue with blood pressure medication. Decrease salt intake and exercise on losartan hydrochlorothiazide (5) Osteoporosis: Comment: 02/2022 Code(s): M81.0 - Age-related osteoporosis without current pathological fracture Plan: Presently on Prolia (6) CKD (chronic kidney disease), stage III: Comment: Dr. Nino Post Code(s): N18.30 - Chronic kidney disease, stage 3 unspecified Plan: Keep well hydrated avoid NSAIDs (7) Hypercholesterolemia: Code(s): E78.00 - Pure hypercholesterolemia, unspecified Coding Level of Care Code Est Pt Level 4 (91048) Diagnoses Heterozygous factor V Leiden mutation D68.51 Deep venous thrombosis I82.409 Localized osteoarthritis of left knee M17.12 Hypertension I10 Osteoporosis M81.0 CKD (chronic kidney disease), stage III N18.30 Hypercholesterolemia E78.00
== END 2023-05-08 12:05 | disposition home or self-care (01) ==
PROVIDERS: PCP Internal Medicine; Visit Provider Internal Medicine
DX: D68.51 Activated protein C resistance (principal); I82.409 Acute embolism and thrombosis of unspecified deep veins of unspecified lower extremity; I12.9 Hypertensive chronic kidney disease with stage 1 through stage 4 chronic kidney disease, or unspecified chronic kidney disease; N18.30 Chronic kidney disease, stage 3 unspecified; M81.0 Age-related osteoporosis without current pathological fracture; E78.00 Pure hypercholesterolemia, unspecified
CPT/HCPCS: 99214

== ENCOUNTER 2023-05-26 10:35 | Outpatient (AMB) | payer MEDICARE, OTHER, SELFPAY ==
[2023-05-26 10:41] LABS: Prothrombin Time Whole Bld POC 27.3 sec (11.1-13.5); ~PT, ~INR - Anti Coag Clinic 2.3 (0.9-1.1)
--- NOTE | 2023-05-26 10:46 | MHC.OFFVISCO ---
Intake Intake Visit Reasons: Anticoagulation Allergies No Known Allergies Allergy (Verified 05/26/23 10:36) Medication List - Last Reconciled 05/26/23 by Daisy Fernando, RN cholecalciferol (vitamin D3) PO clotrimazole 1% 1 appl topical BID 4 weeks denosumab (Prolia) 60 mg subcut [id number] food supplemt, lactose-reduced (Boost) PO losartan-hydrochlorothiazide 50-12.5 mg 1 tab PO DAILY 90 days [magnesium PO] tramadol 50 mg PO TID PRN warfarin 3 mg See Protocol PO .QD 90 days zolpidem 5 mg PO BEDTIME PRN 90 days Nursing Note Amb to [facility] feeling well- sore on lip is gone per pt ( see compose note 2/6) Medications and supplements reviewed- sts she has 2 more days of the cephalexin No other changes in health, diet, medications, or supplements Denies any unusual signs and symptoms of bruising, bleeding Denies any new Chest pain, SOB, or clotting INR:2.3 in therapeutic range Nutritional guidance given: pt is not a green eater sts she chocked down 1 stalk last night, pt continues on her daily Boost- instructed she can add a couple boost and that will act as a green Dose: had decrease Monday dose from 3mg to 2 mg as instructed, now will continue usual dosing;3mg daily F/U INR: 1 week Patient verbalizes understanding of instructions given with accurate read back/ teach back of dosing Anti-Coag Initial Assessment Social Hx Patient Tobacco Use Status: Never used Tobacco alcohol intake: current Alcohol intake frequency: a few times a month Cardiovascular Hx: HTN Lung Disease HX: DVT/PE Musculoskeletal Hx: Arthritis and Osteoporosis Hx: Kidney Disease (MONITORING) Cancer HX: No Psych. Illness/Depression: No Coding Level of Care Code Est Patient Level 1 Diagnoses Current use of anticoagulant therapy Z79.01 Time Spent (min) 15 Assessment & Plan Assessment & Plan (1) Current use of anticoagulant therapy: Code(s): Z79.01 - long-term (current) use of anticoagulants Category: Medical
== END 2023-05-26 10:52 | disposition home or self-care (01) ==
LOC: HO.ACS 10:35
PROVIDERS: PCP Internal Medicine; Visit Provider Internal Medicine
DX: Z79.01 Long term (current) use of anticoagulants (principal)

== ENCOUNTER → 2023-05-26 10:35 | Outpatient (BNVA) | payer MEDICARE, OTHER, SELFPAY | PROVIDERS: PCP Internal Medicine; Visit Provider Internal Medicine | DX: D68.51 Activated protein C resistance (principal); Z79.01 Long term (current) use of anticoagulants; Z51.81 Encounter for therapeutic drug level monitoring | CPT/HCPCS: 85610; 99211 ==

== ENCOUNTER 2023-06-02 10:27 | Outpatient (AMB) | payer MEDICARE, OTHER, SELFPAY ==
[2023-06-02 10:46] LABS: Prothrombin Time Whole Bld POC 30.2 sec (11.1-13.5); ~PT, ~INR - Anti Coag Clinic 2.5 (0.9-1.1)
--- NOTE | 2023-06-02 10:50 | MHC.OFFVISCO ---
Intake Intake Visit Reasons: Anticoagulation Allergies No Known Allergies Allergy (Verified 05/26/23 10:36) Nursing Note INR: 2.5 in therapeutic range Medications and supplements reviewed No changes in health, diet, medications, or supplements, Denies any signs and symptoms of bleeding or bruising or clotting. Bleeding, bruising, clotting discussed Nutritional guidance given - DUE TO FINISHING ANTBX MAKE SURE TO HAVE GREENS OR BOOST NEXT WEEK Dose: 3MG DAILY F/U INR: 4 WKS PER PT REQUEST Patient verbalizes understanding of instructions given Anti-Coag Initial Assessment Social Hx Patient Tobacco Use Status: Never used Tobacco alcohol intake: current Alcohol intake frequency: a few times a month Cardiovascular Hx: HTN Lung Disease HX: DVT/PE Musculoskeletal Hx: Arthritis and Osteoporosis Hx: Kidney Disease (MONITORING) Cancer HX: No Psych. Illness/Depression: No Coding Level of Care Code Est Patient Level 1 Diagnoses Current use of anticoagulant therapy Z79.01 Assessment & Plan Assessment & Plan (1) Current use of anticoagulant therapy: Code(s): Z79.01 - medical terminologist (current) use of anticoagulants Category: Medical
== END 2023-06-02 10:52 | disposition home or self-care (01) ==
LOC: HO.ACS 10:27
PROVIDERS: PCP Internal Medicine; Visit Provider Internal Medicine
DX: Z79.01 Long term (current) use of anticoagulants (principal)

== ENCOUNTER → 2023-06-02 10:27 | Outpatient (BNVA) | payer MEDICARE, OTHER, SELFPAY | PROVIDERS: PCP Internal Medicine; Visit Provider Internal Medicine | DX: D68.51 Activated protein C resistance (principal); Z79.01 Long term (current) use of anticoagulants; Z51.81 Encounter for therapeutic drug level monitoring | CPT/HCPCS: 85610; 99211 ==

== ENCOUNTER 2023-06-30 10:26 | Outpatient (AMB) | payer MEDICARE, OTHER, SELFPAY ==
[2023-06-30 10:33] LABS: ~PT, ~INR - Anti Coag Clinic 2.8 (0.9-1.1)
--- NOTE | 2023-06-30 10:39 | MHC.OFFVISCO ---
Intake Intake Visit Reasons: Anticoagulation Allergies No Known Allergies Allergy (Verified 06/30/23 10:28) Medication List - Last Reconciled 06/30/23 by Daisy Zamora RN cholecalciferol (vitamin D3) PO clotrimazole 1% 1 appl topical BID 4 weeks denosumab (Prolia) 60 mg subcut [id number] food supplemt, lactose-reduced (Boost) PO losartan-hydrochlorothiazide 50-12.5 mg 1 tab PO DAILY 90 days [magnesium PO] tramadol 50 mg PO TID PRN warfarin 3 mg See Protocol PO .QD 90 days zolpidem 5 mg PO BEDTIME PRN 90 days Nursing Note INR: 2.8 in therapeutic range of 2-3 Medications and supplements reviewed, no changes No changes in health, diet, medications, or supplements, Denies any signs and symptoms of bleeding or bruising or clotting. Bleeding, bruising, clotting discussed Nutritional guidance given to cont to balance greens and reds Dose: 3mg daily F/U INR: 4 weeks, 08/04/23 Patient verbalizes understanding of instructions given Anti-Coag Initial Assessment Social Hx Patient Tobacco Use Status: Never used Tobacco alcohol intake: current Alcohol intake frequency: a few times a month Cardiovascular Hx: HTN Lung Disease HX: DVT/PE Musculoskeletal Hx: Arthritis and Osteoporosis Hx: Kidney Disease (MONITORING) Cancer HX: No Psych. Illness/Depression: No Coding Level of Care Code Est Patient Level 1 Diagnoses Current use of anticoagulant therapy Z79.01 Results AMB INR Fingerstick AMB INR Fingerstick 2.8 Last Edit by Daisy Zamora RN on 06/30/23 10:34 interface delay Assessment & Plan Assessment & Plan (1) Current use of anticoagulant therapy: Code(s): Z79.01 - intermediate manager (current) use of anticoagulants Category: Medical
== END 2023-06-30 10:42 | disposition home or self-care (01) ==
LOC: HO.ACS 10:26
PROVIDERS: PCP Internal Medicine; Visit Provider Internal Medicine
DX: Z79.01 Long term (current) use of anticoagulants (principal)

== ENCOUNTER → 2023-06-30 10:26 | Outpatient (BNVA) | payer MEDICARE, OTHER, SELFPAY | PROVIDERS: PCP Internal Medicine; Visit Provider Internal Medicine | DX: D68.51 Activated protein C resistance (principal); Z79.01 Long term (current) use of anticoagulants; Z51.81 Encounter for therapeutic drug level monitoring | CPT/HCPCS: 85610; 99211 ==

== ENCOUNTER 2023-08-07 10:25 | Outpatient (AMB) | payer MEDICARE, OTHER, SELFPAY ==
[2023-08-07 10:30] LABS: Prothrombin Time Whole Bld POC 33.7 sec (11.1-13.5); ~PT, ~INR - Anti Coag Clinic 2.8 (0.9-1.1)
--- NOTE | 2023-08-07 10:31 | MHC.OFFVISCO ---
Intake Intake Visit Reasons: Anticoagulation Allergies No Known Allergies Allergy (Verified 08/07/23 10:25) Medication List - Last Reconciled 08/07/23 by Daisy Fernando RN cholecalciferol (vitamin D3) PO clotrimazole 1% 1 appl topical BID 4 weeks denosumab (Prolia) 60 mg subcut [id number] food supplemt, lactose-reduced (Boost) PO losartan-hydrochlorothiazide 50-12.5 mg 1 tab PO DAILY 90 days [magnesium PO] tramadol 50 mg PO TID PRN warfarin 3 mg See Protocol PO .QD 90 days zolpidem 5 mg PO BEDTIME PRN 90 days Nursing Note AMb to [facility] using walker feeling well Medications and supplements reviewed No changes in health, diet, medications, or supplements, Denies any signs and symptoms of bleeding, bruising,or clotting. Bleeding, bruising, clotting discussed INR 2.8 in therapeutic range continue usual 3mg daily dosing Nutritional guidance given, balance greens and reds in diet, be consistent F/U INR: 1 month Patient verbalizes understanding of instructions given Anti-Coag Initial Assessment Social Hx Patient Tobacco Use Status: Never used Tobacco alcohol intake: current Alcohol intake frequency: a few times a month Cardiovascular Hx: HTN Lung Disease HX: DVT/PE Musculoskeletal Hx: Arthritis and Osteoporosis Hx: Kidney Disease (MONITORING) Cancer HX: No Psych. 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
== END 2023-08-07 10:35 | disposition home or self-care (01) ==
LOC: HO.ACS 10:25
PROVIDERS: PCP Internal Medicine; Visit Provider Internal Medicine
DX: Z79.01 Long term (current) use of anticoagulants (principal)

== ENCOUNTER → 2023-08-07 10:25 | Outpatient (BNVA) | payer MEDICARE, OTHER, SELFPAY | PROVIDERS: PCP Internal Medicine; Visit Provider Internal Medicine | DX: D68.51 Activated protein C resistance (principal); Z51.81 Encounter for therapeutic drug level monitoring; Z79.01 Long term (current) use of anticoagulants | CPT/HCPCS: 85610; 99211 ==

== ENCOUNTER 2023-09-12 10:25 | Outpatient (AMB) | payer MEDICARE, OTHER, SELFPAY ==
[2023-09-12 10:40] LABS: Prothrombin Time Whole Bld POC 39.1 sec (11.1-13.5); ~PT, ~INR - Anti Coag Clinic 3.3 (0.9-1.1)
--- NOTE | 2023-09-12 10:47 | MHC.OFFVISCO ---
Intake Intake Visit Reasons: Anticoagulation Allergies No Known Allergies Allergy (Verified 09/12/23 10:33) Medication List - Last Reconciled 09/12/23 by Elisa Barrios RN cholecalciferol (vitamin D3) PO clotrimazole 1% 1 appl topical BID 4 weeks denosumab (Prolia) 60 mg subcut [id number] food supplemt, lactose-reduced (Boost) PO losartan-hydrochlorothiazide 50-12.5 mg 1 tab PO DAILY 90 days [magnesium PO] tramadol 50 mg PO TID PRN warfarin 3 mg See Protocol PO .QD 90 days zolpidem 5 mg PO BEDTIME PRN 90 days Nursing Note INR 3.3 out of therapeutic range- not a big green eater - has knee pain - to have replacement in 01/08 - she is a Factor V Medications and supplements reviewed Patient status: well- she decided to have a knee replacement 01/08. planning for warfarin and lovenox bridging to be planned , has PCP f/u appt in October 2023 - she will plan then Medications or supplements: no other changes- takes pain med prn Diet: has boost daily Denies any signs and symptoms of bleeding or clotting or unusual bruising Bleeding, bruising, clotting discussed Nutritional guidance given: eat a mix of fruits and vegetables daily - try to have occ greens if able , keep same amt of boost in diet weekly Dose: 2mg today then resume 3mg daily F/U INR Date : 1 month Patient verbalizing understanding of instructions given. Anti-Coag Initial Assessment Social Hx Patient Tobacco Use Status: Never used Tobacco alcohol intake: current Alcohol intake frequency: a few times a month Cardiovascular Hx: HTN Lung Disease HX: DVT/PE Musculoskeletal Hx: Arthritis and Osteoporosis Hx: Kidney Disease (MONITORING) Cancer HX: No Psych. Illness/Depression: No Coding Level of Care Code Est Patient Level 1 Diagnoses Current use of anticoagulant therapy Z79.01 Results AMB INR Fingerstick AMB INR Fingerstick 3.3 Last Edit by Elisa Barrios RN on 09/12/23 10:43 manual entry Assessment & Plan Assessment & Plan (1) Current use of anticoagulant therapy: Code(s): Z79.01 - buttermaker (current) use of anticoagulants Category: Medical
== END 2023-09-12 10:53 | disposition home or self-care (01) ==
LOC: HO.ACS 10:25
PROVIDERS: PCP Internal Medicine; Visit Provider Internal Medicine
DX: Z79.01 Long term (current) use of anticoagulants (principal)

== ENCOUNTER → 2023-09-12 10:25 | Outpatient (BNVA) | payer MEDICARE, OTHER, SELFPAY | PROVIDERS: PCP Internal Medicine; Visit Provider Internal Medicine | DX: D68.51 Activated protein C resistance (principal); Z79.01 Long term (current) use of anticoagulants; Z51.81 Encounter for therapeutic drug level monitoring | CPT/HCPCS: 85610; 99211 ==

== ENCOUNTER → 2023-10-10 10:25 | Outpatient (BNVA) | payer MEDICARE, OTHER, SELFPAY | PROVIDERS: PCP Internal Medicine; Visit Provider Internal Medicine | DX: D68.51 Activated protein C resistance (principal); Z79.01 Long term (current) use of anticoagulants; Z51.81 Encounter for therapeutic drug level monitoring | CPT/HCPCS: 85610; 99211 ==

== ENCOUNTER 2023-10-31 10:19 | Outpatient (REF) | payer MEDICARE, OTHER, SELFPAY ==
[2023-10-31 10:57] LABS: MANUAL DIFF FLAG NO
[2023-10-31 11:05] LABS: Basophils Absolute Auto 0.1 X10*3/uL (0.0-0.2); Basophils Percent Auto 0.7 % (0-2); Eosinophils Absolute Auto 0.2 X10*3/uL (0.0-0.4); Eosinophils Percent Auto 1.8 % (0-4); Hematocrit 38.6 % (37.0-47.0); Hemoglobin 12.8 g/dl (12.0-16.0); Imm Gran Abs Auto 0.02 X10*3/uL (0.00-0.03); Imm Gran Pct Auto 0.2 % (0.0-0.4); Lymphocytes Absolute Auto 1.9 X10*3/uL (1.2-4.9); Lymphocytes Percent Auto 22.2 % (20-40); Mean Corpuscular HGB Conc 33.2 g/dl (31.0-35.0); Mean Corpuscular Hemoglobin 29.4 pg (27.0-33.0); Mean Corpuscular Volume 88.7 fL (80.0-98.0); Mean Platelet Volume 10.9 fL (9.4-12.3); Monocytes Absolute Auto 0.7 X10*3/uL (0.1-1.2); Monocytes Percent Auto 8.5 % (2-11); Neutrophils Absolute Auto 5.6 x10*3/uL (2.0-8.3); Neutrophils Percent Auto 66.6 % (45-73); Platelet Count 295 X10*3/uL (160-400); Red Blood Count 4.35 X10*6/uL (4.20-5.50); Red Cell Distribution Width 13.4 % (11.0-16.0); White Blood Count 8.5 X10*3/uL (4.8-10.8)
[2023-10-31 11:30] LABS: Alanine Aminotransferase 16 U/L (0-31); Albumin Level 3.9 g/dL (3.5-5.0); Alkaline Phosphatase 75 U/L (39-117); Anion Gap 13 (12-20); Aspartate Amino Transferase 18 U/L (5-31); Bilirubin Total 0.7 mg/dL (0.0-1.0); Blood Urea Nitrogen 18 mg/dL (9-16); Calcium 9.6 mg/dL (8.4-10.2); Carbon Dioxide 28 mmol/L (22-29); Chloride 104 mmol/L (96-108); Estimated Glomerular Filt Rate 60; Glucose Random 94 mg/dL (60-115); Potassium 3.9 mmol/L (3.3-5.1); Sodium 141 mmol/L (135-145); Total Protein 6.2 g/dL (6.5-8.0)
[2023-10-31 11:51] LABS: Appearance Urine Clear; Color Urine Yellow; Glucose Urine UA Negative (Negative); Leukocyte Esterase Urine Large (3+) (Negative); Nitrite Urine Negative (Negative); PH 6.5 (5.0-9.0); UMIC TRIGGER UACC YES; Urine Blood Negative (Negative); Urine Ketones Negative (Negative); Urine Protein Negative (Neg-Trace)
[2023-10-31 11:54] LABS: Bacteria Urine 1+ (None Seen); Hyaline Casts Urine 0-2 /LPF (0-2); RBC Urine 0-2 /HPF (0-2); UACC Culture Trigger YES; WBC Urine 21-50 /HPF (0-5)
== END 2023-10-31 10:20 | disposition home or self-care (01) ==
LOC: HO.LAB 10:19
PROVIDERS: PCP Internal Medicine; Visit Provider Internal Medicine
DX: N39.0 Urinary tract infection, site not specified (principal); D68.51 Activated protein C resistance; Z51.81 Encounter for therapeutic drug level monitoring; Z79.01 Long term (current) use of anticoagulants
CPT/HCPCS: 36415; 80053; 81001; 85025; 85610; 87086; 99211

== ENCOUNTER 2023-10-31 10:22 | Outpatient (AMB) | payer MEDICARE, OTHER, SELFPAY ==
[2023-10-31 10:34] LABS: Prothrombin Time Whole Bld POC 51.2 sec (11.1-13.5); ~PT, ~INR - Anti Coag Clinic 4.3 (0.9-1.1)
--- NOTE | 2023-10-31 10:46 | MHC.OFFVISCO ---
Intake Intake Visit Reasons: Anticoagulation Allergies No Known Allergies Allergy (Verified 10/31/23 10:28) Medication List - Last Reconciled 10/31/23 by Daisy Zamora, RN cholecalciferol (vitamin D3) PO clotrimazole 1% 1 appl topical BID 4 weeks denosumab (Prolia) 60 mg subcut [id number] food supplemt, lactose-reduced (Boost) PO losartan-hydrochlorothiazide 50-12.5 mg 1 tab PO DAILY 90 days [magnesium PO] tramadol 50 mg PO TID PRN warfarin 3 mg See Protocol PO .QD 90 days zolpidem 5 mg PO BEDTIME PRN 90 days Nursing Note INR: 4.3?out of therapeutic range of 2-3 Medications and supplements reviewed Patient status: pt has a large bruise left wrist, no other signs of bleeding. Planning total L knee replacement 12/25/23 w/ KELSI's Medications or supplements: no changes Diet: has had summer fruits, strawberries, rhubarb etc. Bleeding, bruising, clotting discussed Nutritional guidance given: to have a serving of greens today Dose: hold today's dose of 3mg then reduce weekly dose to 3mg X 6 days and 2mg X 1 day F/U INR Date : 2 weeks?? Patient verbalizing understanding of instructions given. Anti-Coag Initial Assessment Social Hx Patient Tobacco Use Status: Never used Tobacco alcohol intake: current Alcohol intake frequency: a few times a month Cardiovascular Hx: HTN Lung Disease HX: DVT/PE Musculoskeletal Hx: Arthritis and Osteoporosis Hx: Kidney Disease (MONITORING) Cancer HX: No Psych. Illness/Depression: No Coding Level of Care Code Est Patient Level 1 Diagnoses Current use of anticoagulant therapy Z79.01 Assessment & Plan Assessment & Plan (1) Current use of anticoagulant therapy: Code(s): Z79.01 - penitentiary (current) use of anticoagulants Category: Medical
== END 2023-10-31 11:01 | disposition home or self-care (01) ==
LOC: HO.ACS 10:22
PROVIDERS: PCP Internal Medicine; Visit Provider Internal Medicine
DX: Z79.01 Long term (current) use of anticoagulants (principal)

== ENCOUNTER 2023-11-06 10:55 | Outpatient (AMB) | payer MEDICARE, OTHER, SELFPAY ==
[2023-11-06 11:03] VITALS: BP 150/64; PULSE 77; O2SAT 97; BMI 22.6
--- NOTE | 2023-11-06 11:03 | A.OFFPC_ITS ---
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 Allergies No Known Allergies Allergy (Verified 11/06/23 11:05) Medication List - Last Reconciled 11/06/23 by Scarlet Washington MD cholecalciferol (vitamin D3) PO clotrimazole 1% 1 appl topical BID 4 weeks denosumab (Prolia) 60 mg subcut [id number] food supplemt, lactose-reduced (Boost) PO losartan-hydrochlorothiazide 50-12.5 mg 1 tab PO DAILY 90 days [magnesium PO] tramadol 50 mg PO TID PRN warfarin 3 mg See Protocol PO .QD 90 days zolpidem 5 mg PO BEDTIME PRN 90 days Tobacco use date assessed: 05/08/23 Fall risk assessment: No Falls in past year Last assessed Fall Risk: 11/06/23 Dental Screening Dental Screen Date: 05/08/23 HPI 6 month f/u HTN HPI Details 87-year-old female with factor 5 Leiden on anticoagulation has a history of DVT hypertension osteoporosis chronic kidney disease hypercholesterolemia last seen in April. Review of the notes has been follow- up with Rheumatology and has had injections on the knee. seen KELSI for the L knee and will be haivng Arthroplasty L knee Dr. Yeboah. has had the OA 12 years and failed conservative treatemnt [facility] Medical History (Updated 10/07/22 @ 11:15 by Scarlet Washington MD) Screening for diabetes mellitus Screening for hyperlipidemia Surgical History History of cataract surgery Family History Mother No problems noted. Father No problems noted. Son No problems noted. Son No problems noted. Daughter No problems noted. Social History Housing: Apartment Alcohol intake: current Alcohol intake frequency: a few times a month Patient Tobacco Use Status: Never used Tobacco e-Cigarette/Vaping Use: Never Used Second Hand Smoke Exposure: No Current occupational status: retired Current occupation: RETIRED Current occupational exposures/hazards: No Cognitive needs: No Hearing needs: No Vision needs: Yes Questionnaire Thrive Questionnaire Date Thrive assessed: 10/07/22 AUDIT C Alcohol Use Questionnaire (AUDIT-C) 1. How often do you have a drink containing alcohol?: Monthly or less 2. How many drinks containing alcohol do you have on a typical day when you are drinking?: 1 or 2 3. How often do you have six or more drinks on one occasion?: Never Total Score: 1 Score Reviewed/Action Taken: No JOHN-7 AMB Questionnaire JOHN-7 Date JOHN - 7 assessed: 05/08/23 Source: Developed by Drs. Kamlesh Mckeon, Annette Palacio, Saurabh Mims and colleagues, with an educational lexi from [employer]. Physical exam (Primary Care) Vital Signs: Last Vital Signs Pulse 77 11/06/23 11:03 BP 150/64 H 11/06/23 11:03 Pulse Ox 97 11/06/23 11:03 Oxygen Delivery Method Room Air 11/06/23 11:03 BMI result Body Mass Index 22.6 Tobacco/Smoking Status: Tobacco use Status Tobacco use date assessed 05/08/23 11/06/23 11:07 Patient Tobacco Use Status Never used Tobacco 11/06/23 11:07 e-Cigarette/Vaping Use Never Used 11/06/23 11:07 Thrive Assessment: Date of Thrive Assessment Date Thrive assessed 10/07/22 11/06/23 11:07 Const General: alert; No acute distress Eyes Conjunctivae: conjunctivae normal Resp Auscultation: clear to auscultation bilaterally Cardio Rate: regular rate Rhythm: regular rhythm GI Inspection: Yes normal to inspection Extrem General: Yes normal to inspection and No edema Assessment and Plan Assessment & Plan (1) Hypertension: Code(s): I10 - Essential (primary) hypertension Plan: Continue with blood pressure medication. Decrease salt intake and exercise on losartan hydrochlorothiazide 50/12.5 mg once a day (2) Localized osteoarthritis of left knee: Comment: [facility] Code(s): M17.12 - Unilateral primary osteoarthritis, left knee Plan: Patient follows up with arthritis treatment center and had some injections Euflexxa (3) Heterozygous factor V Leiden mutation: Comment: 2019 Code(s): D68.51 - Activated protein C resistance Plan: Continue with anticoagulation Coumadin (4) Deep venous thrombosis: Code(s): I82.409 - Acute embolism and thrombosis of unspecified deep veins of unspecified lower extremity Plan: Continue with anticoagulation with Coumadin (5) Osteoporosis: Comment: 02/2022 Code(s): M81.0 - Age-related osteoporosis without current pathological fracture Plan: Bone density is handled by arthritis treatment Center on Prolia (6) CKD (chronic kidney disease), stage III: Comment: Dr. Nino Post Code(s): N18.30 - Chronic kidney disease, stage 3 unspecified Plan: Keep well hydrated avoid NSAIDs (7) Hypercholesterolemia: Code(s): E78.00 - Pure hypercholesterolemia, unspecified Plan: Avoid fried foods, chicken skin, eggs, butter margarine, pastries and meat. Be it pork or beef they have a lot of cholesterol LDL goal of less than 130 and triglyceride of less than 150 January 2023 last blood work Coding Level of Care Code Est Pt Level 4 (41545) Diagnoses Hypertension I10 Localized osteoarthritis of left knee M17.12 Heterozygous factor V Leiden mutation D68.51 Deep venous thrombosis I82.409 Osteoporosis M81.0 CKD (chronic kidney disease), stage III N18.30 Hypercholesterolemia E78.00
== END 2023-11-06 15:58 | disposition home or self-care (01) ==
PROVIDERS: PCP Internal Medicine; Visit Provider Internal Medicine
DX: I12.9 Hypertensive chronic kidney disease with stage 1 through stage 4 chronic kidney disease, or unspecified chronic kidney disease (principal); N18.30 Chronic kidney disease, stage 3 unspecified; M17.12 Unilateral primary osteoarthritis, left knee; D68.51 Activated protein C resistance; M81.0 Age-related osteoporosis without current pathological fracture; E78.00 Pure hypercholesterolemia, unspecified
CPT/HCPCS: 99214

== ENCOUNTER 2023-11-14 10:29 | Outpatient (AMB) | payer MEDICARE, OTHER, SELFPAY ==
[2023-11-14 10:35] LABS: Prothrombin Time Whole Bld POC 29.6 sec (11.1-13.5); ~PT, ~INR - Anti Coag Clinic 2.5 (0.9-1.1)
--- NOTE | 2023-11-14 10:40 | MHC.OFFVISCO ---
Intake Intake Visit Reasons: Anticoagulation Allergies No Known Allergies Allergy (Verified 11/14/23 10:29) Medication List - Last Reconciled 11/14/23 by Elisa Barrios RN cholecalciferol (vitamin D3) PO clotrimazole 1% 1 appl topical BID 4 weeks denosumab (Prolia) 60 mg subcut [id number] food supplemt, lactose-reduced (Boost) PO losartan-hydrochlorothiazide 50-12.5 mg 1 tab PO DAILY 90 days [magnesium PO] tramadol 50 mg PO TID PRN warfarin 3 mg See Protocol PO .QD 90 days zolpidem 5 mg PO BEDTIME PRN 90 days Nursing Note INR: 2.5 in therapeutic range Medications and supplements reviewed No changes in health, diet, medications, or supplements, Denies any signs and symptoms of bleeding or bruising or clotting. Bleeding, bruising, clotting discussed Nutritional guidance given - EAT A MIX OF FRUITS AND VEGETABLES THAT YOU ENJOY AND KEEP UP WEEKLY BOOST Dose: 2MG X 1DAY, 3MG X 6 DAYS F/U INR: 2 WEEKS Patient verbalizes understanding of instructions given Anti-Coag Initial Assessment Social Hx Patient Tobacco Use Status: Never used Tobacco alcohol intake: current Alcohol intake frequency: a few times a month Cardiovascular Hx: HTN Lung Disease HX: DVT/PE Musculoskeletal Hx: Arthritis and Osteoporosis Hx: Kidney Disease (MONITORING) Cancer HX: No Psych. Illness/Depression: No Coding Level of Care Code Est Patient Level 1 Diagnoses Current use of anticoagulant therapy Z79.01 Assessment & Plan Assessment & Plan (1) Current use of anticoagulant therapy: Code(s): Z79.01 - care home (current) use of anticoagulants Category: Medical
== END 2023-11-14 10:49 | disposition home or self-care (01) ==
LOC: HO.ACS 10:29
PROVIDERS: PCP Internal Medicine; Visit Provider Internal Medicine
DX: Z79.01 Long term (current) use of anticoagulants (principal)

== ENCOUNTER → 2023-11-14 10:29 | Outpatient (BNVA) | payer MEDICARE, OTHER, SELFPAY | PROVIDERS: PCP Internal Medicine; Visit Provider Internal Medicine | DX: D68.51 Activated protein C resistance (principal); Z79.01 Long term (current) use of anticoagulants; Z51.81 Encounter for therapeutic drug level monitoring | CPT/HCPCS: 85610; 99211 ==

== ENCOUNTER 2023-11-28 10:29 | Outpatient (AMB) | payer MEDICARE, OTHER, SELFPAY ==
--- NOTE | 2023-11-28 10:46 | MHC.OFFVISCO ---
Intake Intake Visit Reasons: Anticoagulation Allergies No Known Allergies Allergy (Verified 11/28/23 10:35) Medication List - Last Reconciled 11/28/23 by Shanae Mccray RN cholecalciferol (vitamin D3) PO clotrimazole 1% 1 appl topical BID 4 weeks denosumab (Prolia) 60 mg subcut [id number] food supplemt, lactose-reduced (Boost) PO losartan-hydrochlorothiazide 50-12.5 mg 1 tab PO DAILY 90 days [magnesium PO] tramadol 50 mg PO TID PRN warfarin 3 mg See Protocol PO .QD 90 days zolpidem 5 mg PO BEDTIME PRN 90 days Nursing Note INR: 2.3- in therapeutic range of 2-3 Medications and supplements reviewed No changes in health, diet, medications, or supplements, Denies any signs and symptoms of bleeding or bruising or clotting. Bleeding, bruising, clotting discussed Nutritional guidance given Dose: 3mg x 6, 2mg x 1 F/U INR: 3 weeks Patient verbalizes understanding of instructions given pt states may want to go on a doac- enc to discuss with pcp pt states getting a TKR on 12/25/23 / [facility]. will compose note to pcp regarding ? bridging pt concerned about prolapsed bladder post op- enc to discuss with md. Anti-Coag Initial Assessment Social Hx Patient Tobacco Use Status: Never used Tobacco alcohol intake: current Alcohol intake frequency: a few times a month Cardiovascular Hx: HTN Lung Disease HX: DVT/PE Musculoskeletal Hx: Arthritis and Osteoporosis Hx: Kidney Disease (MONITORING) Cancer HX: No Psych. Illness/Depression: No Coding Level of Care Code Est Patient Level 1 Diagnoses Current use of anticoagulant therapy Z79.01 Assessment & Plan Assessment & Plan (1) Current use of anticoagulant therapy: Code(s): Z79.01 - [employer] (current) use of anticoagulants Category: Medical
[2023-11-28 10:48] LABS: Prothrombin Time Whole Bld POC 27.5 sec (11.1-13.5); ~PT, ~INR - Anti Coag Clinic 2.3 (0.9-1.1)
== END 2023-11-28 11:13 | disposition home or self-care (01) ==
LOC: HO.ACS 10:29
PROVIDERS: PCP Internal Medicine; Visit Provider Internal Medicine
DX: Z79.01 Long term (current) use of anticoagulants (principal)

== ENCOUNTER → 2023-11-28 10:29 | Outpatient (BNVA) | payer MEDICARE, OTHER, SELFPAY | PROVIDERS: PCP Internal Medicine; Visit Provider Internal Medicine | DX: D68.51 Activated protein C resistance (principal); Z79.01 Long term (current) use of anticoagulants; Z51.81 Encounter for therapeutic drug level monitoring | CPT/HCPCS: 85610; 99211 ==

== ENCOUNTER 2023-12-08 10:09 | Outpatient (AMB) | payer MEDICARE, OTHER, SELFPAY ==
[2023-12-08 10:11] VITALS: BP 138/80; PULSE 80; O2SAT 98; BMI 21.6
--- NOTE | 2023-12-08 10:11 | MHC.PC.OV ---
Vital Signs 12/08/23 10:11 Height 4 ft 11 in Weight 107 lb 2 oz BMI 21.6 BP 138/80 Blood Pressure Location Lt brachial Position Sitting Pulse 80 Pulse Source Pulse Oximeter Pulse Oximetry (%) 98 Oxygen Delivery Method Room Air Intake Visit Reasons: knee surgery 12/24 see comm Nps Required: No Accompanied by: Self / Same As Patient Allergies No Known Allergies Allergy (Verified 12/08/23 10:12) Medication List - Last Reconciled 12/08/23 by Gwen Ogden PA-C cholecalciferol (vitamin D3) PO clotrimazole 1% 1 appl topical BID 4 weeks denosumab (Prolia) 60 mg subcut [id number] food supplemt, lactose-reduced (Boost) PO losartan-hydrochlorothiazide 50-12.5 mg 1 tab PO DAILY 90 days [magnesium PO] tramadol 50 mg PO TID PRN warfarin 3 mg See Protocol PO .QD 90 days zolpidem 5 mg PO BEDTIME PRN 90 days Tobacco use date assessed: 12/08/23 Fall risk assessment: No Falls in past year Last assessed Fall Risk: 12/08/23 Dental Screening Dental Screen Date: 12/08/23 Did you have a dental visit in the last 12 months?: No Did you have a dental problem in the last 6 months where you did not have access to dental care?: No Was dental information given to patient?: No HPI knee surgery 12/24 see comm HPI Details 87-year-old female with 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 In review of the notes, patient is due to have left total knee replacement with [facility] 12/25/[address] Alfaro. Patient states she has not upcoming appointment with [facility] for EKG and labs prior to her surgery. HTN: blood pressure well controlled on lostartan-HCTZ. 138/80 while in the office today. Patient has no history of CVA, [place], CHF or diabetes mellitus. Has had anesthesia in the past without problem. [facility] Medical History (Updated 12/08/23 @ 12:53 by Gwen Ogden PA-C) Screening for diabetes mellitus Screening for hyperlipidemia Surgical History History of cataract surgery Family History Mother No problems noted. Father No problems noted. Son No problems noted. Son No problems noted. Daughter No problems noted. Social History Housing: Apartment Alcohol intake: current Alcohol intake frequency: a few times a month Patient Tobacco Use Status: Never used Tobacco e-Cigarette/Vaping Use: Never Used Second Hand Smoke Exposure: No service: No Current occupational status: retired Current occupation: RETIRED Current occupational exposures/hazards: No Cognitive needs: No Hearing needs: No Vision needs: Yes Questionnaire PHQ-9 Over the last 2 weeks, how often have you been bothered by any of the following problems? 1. Little interest or pleasure in doing things: not at all 2. Feeling down, depressed, or hopeless: not at all 3. Trouble falling or staying asleep, or sleeping too much: not at all 4. Feeling tired or having little energy: not at all 5. Poor appetite or overeating: not at all 6. Feeling bad about yourself - or that you are a failure or have let yourself or your family down: not at all 7. Trouble concentrating on things, such as reading the newspaper or watching television: not at all 8. Moving or speaking so slowly that other people could have noticed. Or the opposite - being so fidgety or restless that you have been moving around a lot more than usual: not at all 9. Thoughts that you would be better off or of hurting yourself in some way: not at all Total score: 0 Depression Screening Interpretation: Negative Depression Screening Done: Yes [id number] - PHQ-9 Billing: Yes Source: Developed by Drs. Kamlesh Mckeon, Annette Palacio, Saurabh Mims and colleagues, with an educational lexi from [employer]. Thrive Questionnaire Date Thrive assessed: 12/08/23 I am a: Patient What is your living situation today?: I have a steady place to live Within the past 12 months, did the food you bought not last and you didn't have the money to get more?: Never true Within the past 12 months, did you worry whether your food would run out before you got money to buy more?: Never true Do you have trouble paying for medicines?: No Do you have trouble getting transportation to medical appointments?: No Do you have trouble paying your heating and electricity bill?: No Do you have trouble taking care of your child, family member or friend?: No Do you have trouble with day-to-day activities such as bathing, preparing meals, shopping, managing finances, etc.?: No Are you currently unemployed and looking for a job?: No Are you interested in more education?: No Please select the resources that you would like help with: None Currently or been in a relationship where the following occur: No concerns reported THRIVE Score: 0 AUDIT C Alcohol Use Questionnaire (AUDIT-C) 1. How often do you have a drink containing alcohol?: Monthly or less 2. How many drinks containing alcohol do you have on a typical day when you are drinking?: 1 or 2 3. How often do you have six or more drinks on one occasion?: Never Total Score: 1 Score Reviewed/Action Taken: No JOHN-7 AMB Questionnaire JOHN-7 Date JOHN - 7 assessed: 12/08/23 Feeling nervous, anxious, or on edge: 0 = Not at all Not being able to stop or control worryin = Not at all Worrying too much about different things: 0 = Not at all Trouble relaxin = Not at all Being so restless that it is hard to sit still: 0 = Not at all Becoming easily annoyed or irritable: 0 = Not at all Feeling afraid as if something awful might happen: 0 = Not at all Total JOHN-7 score (0-4 normal; 5-9 mild; 10-14 moderate; 15-21 severe): 0 Source: Developed by Drs. Kamlesh Mckeon, Annette Palacio, Saurabh Mims and colleagues, with an educational lexi from [employer]. Review of Systems Const Denies body aches, Denies fatigue, Denies fever(s), Denies frequent falls, Denies headache(s) and Denies weakness Eyes Reports no additional complaints and Denies change in vision ENT Denies dizziness, Denies facial pain, Denies headache(s) and Denies nasal congestion Card Denies chest pain, Denies syncope, Denies irregular heart rhythm, Denies leg edema, Denies lightheadedness and Denies dyspnea Resp Denies cough and Denies dyspnea GI Denies abdominal pain, Denies dyspepsia, Denies nausea and Denies vomiting Denies urinary frequency, Denies dysuria, Denies urinary hesitancy and Denies urinary urgency Musc Denies back pain, Denies myalgias and Reports arthralgias Skin/Breast Reports system reviewed and no additional complaints, except as documented Neuro Denies dizziness, Denies syncope, Denies frequent falls, Denies headache(s) and Denies weakness Psych Reports no additional complaints Endo Denies fatigue Physical exam (Primary Care) Vital Signs: Last Vital Signs Pulse 80 12/08/23 10:11 BP 138/80 12/08/23 10:11 Pulse Ox 98 12/08/23 10:11 Oxygen Delivery Method Room Air 12/08/23 10:11 BMI result Body Mass Index 21.6 Tobacco/Smoking Status: Tobacco use Status Tobacco use date assessed 12/08/23 12/08/23 10:18 Patient Tobacco Use Status Never used Tobacco 12/08/23 10:18 e-Cigarette/Vaping Use Never Used 12/08/23 10:18 PHQ-9: PHQ-9 Score PHQ-9: Total score 0 12/08/23 10:40 Depression Screening Interpretation: Negative Thrive Assessment: Date of Thrive Assessment Date Thrive assessed 12/08/23 12/08/23 10:18 Currently or been in a relationship where the following occur: No concerns reported Const General: cooperative, healthy appearing, comfortable and no acute distress Orientation/consciousness: patient oriented x3 HENMT Head: Yes normocephalic Ears: hearing grossly normal bilaterally General nose exam: Normal external nose present Eyes General: appearance normal, both eyes and all related structures Conjunctivae: conjunctivae normal Neck Neck: Yes full ROM and Yes no lymphadenopathy Resp Effort & Inspection: normal respiratory effort Auscultation: clear to auscultation bilaterally, no crackles, no rales, no rhonchi and no wheezes Cardio Rate: regular rate Rhythm: regular rhythm Skin General skin exam: no rashes or lesions noted Neuro General: patient oriented x3 Gait exam (Neuro): Normal gait present Extrem General: Yes normal to inspection, Yes full ROM and No edema Psych Affect: normal affect Attitude: cooperative Insight: Good insight present (Psych) Judgement: Good judgement present (Psych) Assessment and Plan Assessment & Plan (1) Pre-op evaluation: Code(s): Z01.818 - Encounter for other preprocedural examination Plan: Regarding preop clearance, the patient is at moderate risk for proposed surgery due to age.? Reviewed with the patient that no surgery is completely free of risk and that this examination is to assist the surgeon in reviewing informed consent. Patient's comorbidities are well managed at this time and blood pressure was at goal today 138/80. Advised patient to discontinue all medications the night prior to surgery with the exception of lisinopril-hydrochlorothiazide which should be taken on the morning of the procedure for blood pressure management unless otherwise stated by surgeon. As far as anticoagulation warfarin should be discontinued 5 days prior to surgery and Lovenox started twice daily to be discontinued the day prior to surgery to be continued the day after surgery along with warfarin. Continue Lovenox until INR is redrawn and normal. Once INR is within therapeutic range Lovenox can be discontinued. Advised patient to follow up if she has any questions about bridging therapy or if surgeon has other advised. Plan This note was constructed using voice recognition software. While every effort has been made to ensure accuracy and latex foam worker, still areas may have been included sometimes these areas may affect the content or meeting of the given symptoms. Total time spent caring for the patient today was 30 minutes. This includes time spent before the visit reviewing the chart, time spent during the visit, and time spent after the visit and documentation. Medications: New enoxaparin (Lovenox) 40 mg (0.4 mL) subcut Q12H 8 mL 0RF Coding Level of Care Code Est Pt Level 4 (62962) Diagnoses Pre-op evaluation Z01.818
== END 2023-12-08 11:32 | disposition home or self-care (01) ==
PROVIDERS: PCP Internal Medicine
DX: Z01.818 Encounter for other preprocedural examination (principal)
CPT/HCPCS: 99214

== ENCOUNTER 2023-12-19 11:04 | Outpatient (AMB) | payer MEDICARE, OTHER, SELFPAY ==
[2023-12-19 11:22] LABS: ~PT, ~INR - Anti Coag Clinic 3.3 (0.9-1.1)
--- NOTE | 2023-12-19 11:40 | MHC.OFFVISCO ---
Intake Intake Visit Reasons: Anticoagulation Allergies No Known Allergies Allergy (Verified 12/19/23 11:16) Medication List - Last Reconciled 12/19/23 by Elisa Barrios RN cholecalciferol (vitamin D3) PO clotrimazole 1% 1 appl topical BID 4 weeks denosumab (Prolia) 60 mg subcut [id number] enoxaparin (Lovenox) 40 mg (0.4 mL) subcut Q12H food supplemt, lactose-reduced (Boost) PO losartan-hydrochlorothiazide 50-12.5 mg 1 tab PO DAILY 90 days [magnesium PO] tramadol 50 mg PO TID PRN warfarin 3 mg See Protocol PO .QD 90 days zolpidem 5 mg PO BEDTIME PRN 90 days Nursing Note INR: 3.3 out of therapeutic range- pt took 3mg yesterday instead of 2mg due to up coming surgery and holding warfarin x 5 days per md orders she will take last dose of warfarin today She will be resuming warfarin post procedure and visit the possibility of a DOAC in February 23 - last dose of warfarin 12/19 no warfarin 12/20 no warfarin 12/21 no warfarin - start lovenox 40mg sq bid 12/22 no warfain lovenox bid 12/23 no warfarin lovenox am only 12/24 procedure - resume warfarin and lovenox per md orders Call [facility] when home and released from ortho for [facility] to manage Medications and supplements reviewed Enc to have her boost supplement today Denies any signs and symptoms of bleeding or bruising or clotting. Bleeding, bruising, clotting discussed Nutritional guidance given - boost today Dose: as [facility] [place] F/U INR: per MD to Resume [facility] Services Bridging instruction Form given with review and lovenox injection form given with review Patient verbalizes understanding of instructions given Anti-Coag Initial Assessment Social Hx Patient Tobacco Use Status: Never used Tobacco alcohol intake: current Alcohol intake frequency: a few times a month Cardiovascular Hx: HTN Lung Disease HX: DVT/PE Musculoskeletal Hx: Arthritis and Osteoporosis Hx: Kidney Disease (MONITORING) Cancer HX: No Psych. Illness/Depression: No Coding Level of Care Code Est Patient Level 2 Diagnoses Current use of anticoagulant therapy Z79.01 Results AMB INR Fingerstick AMB INR Fingerstick 3.3 Last Edit by Elisa Barrios RN on 12/19/23 11:21 manual entry Assessment & Plan Assessment & Plan (1) Current use of anticoagulant therapy: Code(s): Z79.01 - care home (current) use of anticoagulants Category: Medical
== END 2023-12-19 11:46 | disposition home or self-care (01) ==
LOC: HO.ACS 11:04
PROVIDERS: PCP Internal Medicine; Visit Provider Internal Medicine
DX: Z79.01 Long term (current) use of anticoagulants (principal)

== ENCOUNTER → 2023-12-19 11:04 | Outpatient (BNVA) | payer MEDICARE, OTHER, SELFPAY | PROVIDERS: PCP Internal Medicine; Visit Provider Internal Medicine | DX: D68.51 Activated protein C resistance (principal); Z79.01 Long term (current) use of anticoagulants; Z51.81 Encounter for therapeutic drug level monitoring | CPT/HCPCS: 85610; 99212 ==

== ENCOUNTER 2024-01-15 12:11 | Outpatient (REF) | payer MEDICARE, OTHER, SELFPAY ==
[2024-01-15 12:44] LABS: MANUAL DIFF FLAG NO
[2024-01-15 13:29] LABS: Basophils Absolute Auto 0.1 X10*3/uL (0.0-0.2); Basophils Percent Auto 0.8 % (0-2); Eosinophils Absolute Auto 0.1 X10*3/uL (0.0-0.4); Eosinophils Percent Auto 1.7 % (0-4); Hematocrit 29.4 % (37.0-47.0); Hemoglobin 9.1 g/dl (12.0-16.0); Imm Gran Abs Auto 0.02 X10*3/uL (0.00-0.03); Imm Gran Pct Auto 0.3 % (0.0-0.4); Lymphocytes Absolute Auto 1.7 X10*3/uL (1.2-4.9); Lymphocytes Percent Auto 23.4 % (20-40); Mean Corpuscular Hemoglobin 28.9 pg (27.0-33.0); Mean Corpuscular Volume 93.3 fL (80.0-98.0); Mean Platelet Volume 10.8 fL (9.4-12.3); Monocytes Absolute Auto 0.5 X10*3/uL (0.1-1.2); Monocytes Percent Auto 7.5 % (2-11); Neutrophils Absolute Auto 4.8 x10*3/uL (2.0-8.3); Neutrophils Percent Auto 66.3 % (45-73); Platelet Count 491 X10*3/uL (160-400); Red Blood Count 3.15 X10*6/uL (4.20-5.50); Red Cell Distribution Width 14.9 % (11.0-16.0); White Blood Count 7.2 X10*3/uL (4.8-10.8)
[2024-01-15 14:13] LABS: Alanine Aminotransferase 11 U/L (0-31); Albumin Level 3.6 g/dL (3.5-5.0); Alkaline Phosphatase 123 U/L (39-117); Anion Gap 11 (12-20); Aspartate Amino Transferase 15 U/L (5-31); Bilirubin Total 0.5 mg/dL (0.0-1.0); Blood Urea Nitrogen 19 mg/dL (9-16); Calcium 9.4 mg/dL (8.4-10.2); Carbon Dioxide 25 mmol/L (22-29); Chloride 109 mmol/L (96-108); Cholesterol 189 mg/dL (<200); Estimated Glomerular Filt Rate > 60; Glucose Random 83 mg/dL (60-115); HDL Cholesterol 50 mg/dL (>40); LDL Cholesterol Calculated 125 mg/dL (<100); Potassium 4.1 mmol/L (3.3-5.1); Sodium 141 mmol/L (135-145); Total Protein 6.1 g/dL (6.5-8.0); Triglycerides 70 mg/dL (<150)
[2024-01-15 15:05] LABS: Folate 11.5 ng/mL (> or = 4.0); Free T4 (Free Thyroxine) 0.95 ng/dL (0.71-1.85); Thyroid Stimulating Hormone 1.02 uIU/mL (0.32-4.0); Vitamin B12 441 pg/mL (200-900); Vitamin D 25-OH Total 65.4 ng/mL (>30)
== END 2024-01-15 12:12 | disposition home or self-care (01) ==
LOC: HO.LAB 12:11
PROVIDERS: PCP Internal Medicine; Visit Provider Internal Medicine
DX: E78.00 Pure hypercholesterolemia, unspecified (principal)
CPT/HCPCS: 36415; 80053; 80061; 82306; 82607; 82746; 84439; 84443; 85025

== ENCOUNTER 2024-01-18 11:46 | Outpatient (REF) | payer MEDICARE, OTHER, SELFPAY ==
[2024-01-18 12:24] LABS: Appearance Urine Clear; Color Urine Yellow; Glucose Urine UA Negative (Negative); Leukocyte Esterase Urine Moderate (2+) (Negative); Nitrite Urine Negative (Negative); UMIC TRIGGER UACC YES; Urine Blood Negative (Negative); Urine Ketones Negative (Negative); Urine Protein Negative (Neg-Trace)
[2024-01-18 12:28] LABS: Bacteria Urine None Seen (None Seen); Hyaline Casts Urine 0-2 /LPF (0-2); RBC Urine 0-2 /HPF (0-2); UACC Culture Trigger YES
== END 2024-01-18 11:47 | disposition home or self-care (01) ==
LOC: HO.LNP 11:46
PROVIDERS: Visit Provider Internal Medicine
DX: N39.0 Urinary tract infection, site not specified (principal)
CPT/HCPCS: 81001; 81003; 87086

== ENCOUNTER 2024-01-24 09:01 | Outpatient (AMB) | payer MEDICARE, OTHER, SELFPAY ==
--- NOTE | 2024-01-24 09:04 | AM.OFFVISMDC ---
Intake Vital Signs 01/24/24 09:07 Height 4 ft 11 in Weight 109 lb 6 oz BMI 22.1 BP 130/70 Blood Pressure Location Lt brachial Position Sitting Pulse 69 Pulse Source Pulse Oximeter Pulse Oximetry (%) 100 Oxygen Delivery Method Room Air Intake Visit Reasons: [id number] Intake Note: Patient is here for an Annual Wellness Visit. Resource Economist Required: No Visual Stylist: Visual Stylist offered & declined Accompanied by: Self / Same As Patient Allergies No Known Allergies Allergy (Verified 01/24/24 09:06) Medication List - Last Reconciled 01/24/24 by Scarlet Washington MD apixaban (Eliquis) 5 mg PO BID cholecalciferol (vitamin D3) PO clotrimazole 1% 1 appl topical BID 4 weeks denosumab (Prolia) 60 mg subcut [id number] food supplemt, lactose-reduced (Boost) PO losartan 50 mg PO DAILY [magnesium PO] tramadol 50 mg PO TID PRN zolpidem 5 mg PO BEDTIME PRN 90 days HPI [id number] HPI Details 88-year-old female with a history of DVT hypertension chronic kidney disease osteoporosis hypercholesterolemia coming in for an annual well visit. Patient just had a history of arthroplasty of the left knee. Review of the notes has just seen Orthopedics January for for the arthritis osteoporosis. Patient on Prolia and continuing rehab with left TKA. Patient had the discharge recently January 05 Coumadin recently held for total knee replacement December 24 maintained on Lovenox and Coumadin bridge after surgery presents with increased left lower extremity swelling for the past 2 days found to have gluteal DVT patient has history of factor 5 Leiden mutation and prior DVT in 2018 the left knee arthroplasty was done in 12/25/[address] [facility] [address] AlfaroRhnathana[facility] [place] Bone density being done by [facility] [place] PAtent has a hematology ff up in [facility] 02/2024 was told by arthritis [facility] due for bone density but there machine is broken. As for the vaccine had pneumonia shots had flu vaccine and COVID vaccine recently but I do not have a record. [facility] Surgical History (Updated 01/24/24 @ 09:12 by ARIANA Green) History of left knee replacement History of cataract surgery Family History (Updated 01/24/24 @ 09:06 by Shimarlia Kwade, RMA) Mother No problems noted. Father No problems noted. Son No problems noted. Son No problems noted. Daughter No problems noted. Social History (Updated 01/24/24 @ 09:38 by Scarlet Washington MD) Housing: Apartment Alcohol intake: current Alcohol intake frequency: a few times a month Comment: ocnce a week 1 glass Patient Tobacco Use Status: Never used Tobacco e-Cigarette/Vaping Use: Never Used Second Hand Smoke Exposure: No service: No Current occupational status: retired Current occupation: RETIRED Current occupational exposures/hazards: No Cognitive needs: No Hearing needs: No Vision needs: Yes Questionnaire Medicare Wellness Checkup What is your age?: 80 or older What gender do you identify with?: female During the past 4 weeks, how much have you been bothered by emotional problems such as feeling anxious, depressed, irritable, sad or downhearted, and blue?: slightly During the past 4 weeks, has your physical & emotional health limited your social activities with family, friends, neighbors, or groups?: not at all During the past 4 weeks, how much bodily pain have you generally had?: severe pain (due to recent knee replacement) During the past 4 weeks, was someone available to help you if you needed & wanted help?: yes, as much as I wanted During the past 4 weeks, what was the hardest physical activity you could do for at least 2 minutes?: very light Can you get to places out of walking distance without help? (For eg., can you travel alone on buses, taxis or drive your car?): Yes Can you go shopping for groceries or clothes without someone's help?: Yes Can you prepare your own meals?: Yes Can you do your housework without help?: Yes Because of any health problems, do you need the help of another person with your personal care needs such as eating, bathing, dressing or getting around the house?: No Can you handle your own money without help?: Yes During the past 4 weeks, how would you rate your health in general?: excellent During the past 4 weeks how have things been going for you?: pretty well Are you having difficulties driving your car?: no Do you always fasten your seat belt when you are in a car?: yes, usually During past 4 weeks, have you been bothered by the following: never: Falling or dizzy when standing up, Sexual problems?, Trouble eating well?, Teeth or denture problems? and Problems using the telephone? and sometimes: Tiredness or fatigue? Have you fallen 2 or more times in the past year?: No Are you afraid of falling?: No Are you a smoker?: no During the past 4 weeks, how many drinks of wine, beer, or other alcoholic beverages did you have?: no alcohol at all Do you exercise for about 20 minutes 3 or more times a week?: yes, some of the time Have you been given information to help with the following?: yes: Keeping track of your medications? and no: Hazards in your house that might hurt you? How often do you have trouble taking medicines the way you have been told to take them?: I always take medicine as prescribed How confident are you that you can control & manage most of your health problems?: somewhat confident What is your race?: White PHQ-9 Over the last 2 weeks, how often have you been bothered by any of the following problems? 1. Little interest or pleasure in doing things: not at all 2. Feeling down, depressed, or hopeless: several days 3. Trouble falling or staying asleep, or sleeping too much: more than half the days 4. Feeling tired or having little energy: several days 5. Poor appetite or overeating: not at all 6. Feeling bad about yourself - or that you are a failure or have let yourself or your family down: not at all 7. Trouble concentrating on things, such as reading the newspaper or watching television: not at all 8. Moving or speaking so slowly that other people could have noticed. Or the opposite - being so fidgety or restless that you have been moving around a lot more than usual: not at all 9. Thoughts that you would be better off or of hurting yourself in some way: not at all Total score: 4 Depression Screening Interpretation: Positive Depression Screening Done: Yes Source: Developed by Drs. Kamlesh Mckeon, Annette Palacio, Saurabh Mims and colleagues, with an educational lexi from [employer]. Thrive Questionnaire Date Thrive assessed: 12/08/23 Are you currently unemployed and looking for a job?: No JOHN-7 AMB Questionnaire JOHN-7 Date JOHN - 7 assessed: 12/08/23 Source: Developed by Drs. Kamlesh Mckeon, Annette Palacio, Saurabh Mims and colleagues, with an educational lexi from [employer]. Review of Systems Const Denies poor appetite and Denies weakness Eyes Denies no additional complaints ENT Reports Normal hearing present, Denies dizziness, Denies nasal congestion, Denies tinnitus and Denies sore throat Card Denies chest pain, Denies syncope, Denies rapid heart rate and Denies dyspnea Resp Denies cough and Denies dyspnea GI Denies change in stool character, Reports constipation, Denies diarrhea, Denies nausea and Denies vomiting Denies urinary frequency, Denies difficulty voiding and Denies dysuria Neuro Reports Normal hearing present, Denies confusion, Denies dizziness, Denies syncope and Denies weakness Psych Denies confusion Physical Exam Vital Signs: Last Vital Signs Pulse 69 01/24/24 09:07 BP 130/70 01/24/24 09:07 Pulse Ox 100 01/24/24 09:07 Oxygen Delivery Method Room Air 01/24/24 09:07 BMI result Body Mass Index 22.1 Const General: No confusion Orientation/consciousness: No confusion HEENT Head: Yes normocephalic Ears: external ears normal and TM's normal bilaterally Face and sinus: Yes normal facial exam Mouth: moist mucous membranes Throat: Yes tonsils normal Eyes Conjunctivae: conjunctivae normal Pupils: Equal, round and reactive pupils present and Pupil accommodation reflex normal Direct Ophthalmoscopy: normal light reflex Neck Neck: No lymphadenopathy Thyroid: Thyroid normal Chest Chest palpation & inspection: normal inspection of the chest Resp Effort & Inspection: normal respiratory effort and no audible wheezes Auscultation: clear to auscultation bilaterally, no crackles, no wheezes and lung sounds not diminished Cardio Rate: regular rate Rhythm: regular rhythm Peripheral pulses: radial pulses present and dorsalis pedis present GI Other: Declined rectal exam Palpation (GI): no masses Auscultation: normal bowel sounds and normoactive bowel sounds Rectal Exam - Female: deferred Skin General skin exam: no rashes or lesions noted Rashes: no rashes Neuro General: No confusion Cranial nerves: Yes Equal, round and reactive pupils present and Yes Normal hearing present Cognition (Neuro): normal cognition Gait exam (Neuro): Normal gait present Motor exam (neuro): 5/5 motor strength present throughout Deep tendon reflexes (DTR's): Right brachioradialis reflex intensity grade: 2+, Left brachioradialis reflex intensity grade: 2+, Right patellar reflex intensity grade: 2+ and Left patellar reflex intensity grade: 2+ Extrem Other: Left knee with good incisional [place] no redness limited flexion General: No edema Assessment & Plan Assessment & Plan (1) Annual wellness visit: Code(s): Z00.00 - Encounter for general adult medical examination without abnormal findings Plan: Patient is advised to eat healthy, keep well hydrated, keep active and have adequate sleep. (2) Deep venous thrombosis: Comment: 2018, Left leg January 2024 post left knee replacement 12/25/2023 Code(s): I82.409 - Acute embolism and thrombosis of unspecified deep veins of unspecified lower extremity Qualifiers: DVT location: lower extremity Affected thrombotic vein of extremity: popliteal Chronicity: acute Laterality: left Qualified Code(s): I82.432 - Acute embolism and thrombosis of left popliteal vein Plan: Continue with Eliquis and will be referred to Hematology Oncology (3) Hypertension: Code(s): I10 - Essential (primary) hypertension Qualifiers: Hypertension type: primary hypertension Qualified Code(s): I10 - Essential (primary) hypertension Plan: Continue with blood pressure medication. Decrease salt intake and exercise on losartan 50 mg once a day (4) Heterozygous factor V Leiden mutation: Comment: 2018 Code(s): D68.51 - Activated protein C resistance Plan: Continue with anticoagulation continue to follow up with Hematology-Oncology (5) Osteoporosis: Comment: 02/2022 Code(s): M81.0 - Age-related osteoporosis without current pathological fracture Qualifiers: Osteoporosis type: age-related Presence of current pathological fracture: without current pathological fracture Qualified Code(s): M81.0 - Age-related osteoporosis without current pathological fracture Plan: Patient is being followed up by Orthopedics and is on Prolia 60 mg twice a day year (6) Hypercholesterolemia: Code(s): E78.00 - Pure hypercholesterolemia, unspecified Plan: Avoid fried foods, chicken skin, eggs, butter margarine, pastries and meat. Be it pork or beef they have a lot of cholesterol LDL goal of less than 130 and triglyceride of less than 150 (7) History of arthroplasty of left knee: Comment: 12/25/2023 Code(s): Z96.652 - Presence of left artificial knee joint Plan: Continue with physical therapy continue with follow-up with orthopedics (8) Anemia: Code(s): D64.9 - Anemia, unspecified Qualifiers: Anemia type: other cause Other causes of anemia: nutritional, other Qualified Code(s): D53.8 - Other specified nutritional anemias Plan: Will continue to monitor Orders: Orders IRON PROFILE Today D64.9 - Anemia, unspecified Thyroid Stimulating Hormone Today D64.9 - Anemia, unspecified Vitamin B12 and Folate Today D64.9 - Anemia, unspecified Vitamin D 25-OH Total Today D64.9 - Anemia, unspecified Complete Blood Count Auto Diff Today D64.9 - Anemia, unspecified Comprehensive Met. Panel Today D64.9 - Anemia, unspecified Ferritin Today D64.9 - Anemia, unspecified Reticulocyte Count Today D64.9 - Anemia, unspecified Free T4 (Free Thyroxine) Today D64.9 - Anemia, unspecified Quality Reporting (2019) Depression/Bipolar (159/160/161/177) PHQ-9: Total score: 4 Coding Level of Care Code Medicare Subsequent ([id number]) Diagnoses Annual wellness visit Z00.00 Acute deep vein thrombosis (DVT) of popliteal vein of left lower extremity I82.432 DVT location: lower extremity Affected thrombotic vein of extremity: popliteal Chronicity: acute Laterality: left Primary hypertension I10 Hypertension type: primary hypertension Heterozygous factor V Leiden mutation D68.51 Age-related osteoporosis without current pathological fracture M81.0 Osteoporosis type: age-related Presence of current pathological fracture: without current pathological fracture Hypercholesterolemia E78.00 History of arthroplasty of left knee Z96.652 Other specified nutritional anemias D53.8 Anemia type: other cause Other causes of anemia: nutritional, other
[2024-01-24 09:07] VITALS: BP 130/70; PULSE 69; O2SAT 100; BMI 22.1
== END 2024-01-24 12:36 | disposition home or self-care (01) ==
PROVIDERS: PCP Internal Medicine; Visit Provider Internal Medicine
DX: Z00.00 Encounter for general adult medical examination without abnormal findings (principal); I82.432 Acute embolism and thrombosis of left popliteal vein; D68.51 Activated protein C resistance; I10 Essential (primary) hypertension; M81.0 Age-related osteoporosis without current pathological fracture; E78.00 Pure hypercholesterolemia, unspecified; Z96.652 Presence of left artificial knee joint; D53.8 Other specified nutritional anemias

== ENCOUNTER → 2024-01-24 09:01 | Outpatient (BNVA) | payer MEDICARE, OTHER, SELFPAY | PROVIDERS: PCP Internal Medicine; Visit Provider Internal Medicine ==

== ENCOUNTER 2024-03-08 14:34 | Outpatient (AMB) | payer MEDICARE, OTHER, SELFPAY ==
[2024-03-08 14:36] VITALS: BP 132/76; PULSE 78; O2SAT 96; BMI 22.0
--- NOTE | 2024-03-08 14:36 | MHC.PC.OV ---
Vital Signs 03/08/24 14:36 Height 4 ft 11 in Weight 109 lb BMI 22.0 BP 132/76 Blood Pressure Location Lt brachial Position Sitting Pulse 78 Pulse Source Pulse Oximeter Pulse Oximetry (%) 96 Oxygen Delivery Method Room Air Intake Visit Reasons: Deep vein thrombosis Allergies No Known Allergies Allergy (Verified 03/08/24 14:36) Tobacco use date assessed: 12/08/23 Fall risk assessment: No Falls in past year Last assessed Fall Risk: 03/08/24 Dental Screening Dental Screen Date: 12/08/23 HPI Deep vein thrombosis HPI Details 88-year-old female with a history of DVT hypertension heterozygous factor 5 Leiden mutation on anticoagulation osteoporosis hypercholesterolemia coming in for follow-up. Last seen in 01/05/2024. Review of the notes has seen [facility] for the left knee replacement 12/25/2023. Patient was also seen by rheumatology in January for the osteoporosis on Prolia and next years bone density. bone density was not working [facility] Surgical History (Updated 01/24/24 @ 09:12 by ARIANA Green) History of left knee replacement History of cataract surgery Family History (Updated 01/24/24 @ 09:06 by ARIANA Green) Mother No problems noted. Father No problems noted. Son No problems noted. Son No problems noted. Daughter No problems noted. Social History (Updated 01/24/24 @ 09:38 by Scarlet Washington MD) Housing: Apartment Alcohol intake: current Alcohol intake frequency: a few times a month Comment: ocnce a week 1 glass Patient Tobacco Use Status: Never used Tobacco Tobacco use type: Cigarette e-Cigarette/Vaping Use: Never Used Second Hand Smoke Exposure: No service: No Current occupational status: retired Current occupation: RETIRED Current occupational exposures/hazards: No Cognitive needs: No Hearing needs: No Vision needs: Yes Questionnaire PHQ-9 Over the last 2 weeks, how often have you been bothered by any of the following problems? 1. Little interest or pleasure in doing things: not at all 2. Feeling down, depressed, or hopeless: several days 3. Trouble falling or staying asleep, or sleeping too much: more than half the days 4. Feeling tired or having little energy: several days 5. Poor appetite or overeating: not at all 6. Feeling bad about yourself - or that you are a failure or have let yourself or your family down: not at all 7. Trouble concentrating on things, such as reading the newspaper or watching television: not at all 8. Moving or speaking so slowly that other people could have noticed. Or the opposite - being so fidgety or restless that you have been moving around a lot more than usual: not at all 9. Thoughts that you would be better off or of hurting yourself in some way: not at all Total score: 4 Depression Screening Interpretation: Positive Depression Screening Done: Yes Source: Developed by Drs. Kamlesh Mckeon, Annette Palacio, Saurabh Mims and colleagues, with an educational lexi from [employer]. Thrive Questionnaire Date Thrive assessed: 12/08/23 Are you currently unemployed and looking for a job?: No AUDIT C Alcohol Use Questionnaire (AUDIT-C) 1. How often do you have a drink containing alcohol?: Monthly or less 2. How many drinks containing alcohol do you have on a typical day when you are drinking?: 1 or 2 3. How often do you have six or more drinks on one occasion?: Never Total Score: 1 Score Reviewed/Action Taken: No JOHN-7 AMB Questionnaire JOHN-7 Date JOHN - 7 assessed: 12/08/23 Source: Developed by Drs. Kamlesh Mckeon, Annette Palacio, Saurabh Mims and colleagues, with an educational lexi from [employer]. Physical exam (Primary Care) Vital Signs: Last Vital Signs Pulse 78 03/08/24 14:36 BP 132/76 03/08/24 14:36 Pulse Ox 96 03/08/24 14:36 Oxygen Delivery Method Room Air 03/08/24 14:36 BMI result Body Mass Index 22.0 Tobacco/Smoking Status: Tobacco use Status Tobacco use date assessed 12/08/23 03/08/24 14:43 Patient Tobacco Use Status Never used Tobacco 03/08/24 14:43 Tobacco use type Cigarette 03/08/24 14:43 e-Cigarette/Vaping Use Never Used 03/08/24 14:43 PHQ-9: PHQ-9 Score PHQ-9: Total score 4 03/08/24 14:43 Depression Screening Interpretation: Positive Thrive Assessment: Date of Thrive Assessment Date Thrive assessed 12/08/23 03/08/24 14:43 Const General: alert; No acute distress Eyes Conjunctivae: conjunctivae normal Resp Auscultation: clear to auscultation bilaterally Cardio Rate: regular rate Rhythm: regular rhythm GI Inspection: Yes normal to inspection Extrem General: Yes normal to inspection and No edema Coding Level of Care Code Est Pt Level 4 (17719) Diagnoses Other specified nutritional anemias D53.8 Anemia type: other cause Other causes of anemia: nutritional, other History of arthroplasty of left knee Z96.652 Hypercholesterolemia E78.00 CKD (chronic kidney disease), stage III N18.30 Age-related osteoporosis without current pathological fracture M81.0 Osteoporosis type: age-related Presence of current pathological fracture: without current pathological fracture Heterozygous factor V Leiden mutation D68.51 Acute deep vein thrombosis (DVT) of popliteal vein of left lower extremity I82.432 DVT location: lower extremity Affected thrombotic vein of extremity: popliteal Chronicity: acute Laterality: left Primary hypertension I10 Hypertension type: primary hypertension Assessment & Plan Assessment & Plan (1) Anemia: Code(s): D64.9 - Anemia, unspecified Category: Medical Qualifiers: Anemia type: other cause Other causes of anemia: nutritional, other Qualified Code(s): D53.8 - Other specified nutritional anemias Plan: Continuing to monitor (2) History of arthroplasty of left knee: Comment: 12/25/2023 Code(s): Z96.652 - Presence of left artificial knee joint Category: Surgical Plan: Patient is being followed up by [facility] keep active. (3) Hypercholesterolemia: Code(s): E78.00 - Pure hypercholesterolemia, unspecified Category: Medical Plan: Avoid fried foods, chicken skin, eggs, butter margarine, pastries and meat. Be it pork or beef they have a lot of cholesterol LDL goal of less than 130 and triglyceride of less than 150 (4) CKD (chronic kidney disease), stage III: Comment: Dr. Nino Post Code(s): N18.30 - Chronic kidney disease, stage 3 unspecified Category: Medical Plan: Continue to monitor (5) Osteoporosis: Comment: 02/2022 Code(s): M81.0 - Age-related osteoporosis without current pathological fracture Category: Medical Qualifiers: Osteoporosis type: age-related Presence of current pathological fracture: without current pathological fracture Qualified Code(s): M81.0 - Age-related osteoporosis without current pathological fracture Plan: Patient follows up with Rheumatology and planned bone density. On Prolia discussed about calcium and vitamin-D. (6) Heterozygous factor V Leiden mutation: Comment: 2019 Code(s): D68.51 - Activated protein C resistance Category: Medical Plan: Continue with anticoagulation with Eliquis twice a day and continue to monitor renal function (7) Deep venous thrombosis: Comment: 2019, Left leg January 2024 post left knee replacement 12/25/2023 Code(s): I82.409 - Acute embolism and thrombosis of unspecified deep veins of unspecified lower extremity Category: Medical Qualifiers: DVT location: lower extremity Affected thrombotic vein of extremity: popliteal Chronicity: acute Laterality: left Qualified Code(s): I82.432 - Acute embolism and thrombosis of left popliteal vein Plan: Continue on with anticoagulation with Eliquis (8) Hypertension: Code(s): I10 - Essential (primary) hypertension Category: Medical Qualifiers: Hypertension type: primary hypertension Qualified Code(s): I10 - Essential (primary) hypertension Plan: Continue with blood pressure medication. Decrease salt intake and exercise losartan 50 mg once a day
== END 2024-03-08 15:31 | disposition home or self-care (01) ==
PROVIDERS: PCP Internal Medicine; Visit Provider Internal Medicine
DX: I12.9 Hypertensive chronic kidney disease with stage 1 through stage 4 chronic kidney disease, or unspecified chronic kidney disease (principal); N18.30 Chronic kidney disease, stage 3 unspecified; D68.51 Activated protein C resistance; I82.432 Acute embolism and thrombosis of left popliteal vein; D53.8 Other specified nutritional anemias; Z96.652 Presence of left artificial knee joint; E78.00 Pure hypercholesterolemia, unspecified; M81.0 Age-related osteoporosis without current pathological fracture

== ENCOUNTER → 2024-03-08 14:34 | Outpatient (BNVA) | payer MEDICARE, OTHER, SELFPAY | PROVIDERS: PCP Internal Medicine; Visit Provider Internal Medicine | DX: D53.8 Other specified nutritional anemias (principal); E78.00 Pure hypercholesterolemia, unspecified; I12.9 Hypertensive chronic kidney disease with stage 1 through stage 4 chronic kidney disease, or unspecified chronic kidney disease; N18.30 Chronic kidney disease, stage 3 unspecified; M81.0 Age-related osteoporosis without current pathological fracture; D68.51 Activated protein C resistance; I82.432 Acute embolism and thrombosis of left popliteal vein; Z96.652 Presence of left artificial knee joint | CPT/HCPCS: 96127; 99212 ==

== ENCOUNTER 2024-04-02 11:26 | Outpatient (REF) | payer MEDICARE, OTHER, SELFPAY ==
[2024-04-02 11:38] LABS: MANUAL DIFF FLAG NO
[2024-04-02 12:03] LABS: Basophils Absolute Auto 0.1 X10*3/uL (0.0-0.2); Basophils Percent Auto 0.7 % (0-2); Eosinophils Absolute Auto 0.1 X10*3/uL (0.0-0.4); Eosinophils Percent Auto 1.2 % (0-4); Hematocrit 37.4 % (37.0-47.0); Hemoglobin 12.2 g/dl (12.0-16.0); Imm Gran Abs Auto 0.02 X10*3/uL (0.00-0.03); Imm Gran Pct Auto 0.3 % (0.0-0.4); Immature Retic Fraction 6.4 % (3.0-15.9); Lymphocytes Absolute Auto 1.9 X10*3/uL (1.2-4.9); Lymphocytes Percent Auto 27.6 % (20-40); Mean Corpuscular HGB Conc 32.6 g/dl (31.0-35.0); Mean Corpuscular Hemoglobin 27.8 pg (27.0-33.0); Mean Corpuscular Volume 85.2 fL (80.0-98.0); Mean Platelet Volume 11.3 fL (9.4-12.3); Monocytes Absolute Auto 0.6 X10*3/uL (0.1-1.2); Monocytes Percent Auto 8.1 % (2-11); Neutrophils Absolute Auto 4.2 x10*3/uL (2.0-8.3); Neutrophils Percent Auto 62.1 % (45-73); Platelet Count 286 X10*3/uL (160-400); Red Blood Count 4.39 X10*6/uL (4.20-5.50); Red Cell Distribution Width 14.1 % (11.0-16.0); Retic HGB Equivalent 31.3 pg (30.0-35.0); Reticulocyte Percent 0.8 % (0.5-1.8); Reticulocytes Absolute 0.035 X10*6/uL (0.026-0.095); White Blood Count 6.8 X10*3/uL (4.8-10.8)
[2024-04-02 12:06] LABS: Appearance Urine Clear; Color Urine Yellow; Glucose Urine UA Negative (Negative); Leukocyte Esterase Urine Large (3+) (Negative); Nitrite Urine Negative (Negative); UMIC TRIGGER UA YES; UMIC TRIGGER UACC YES; Urine Blood Negative (Negative); Urine Ketones Negative (Negative); Urine Protein Negative (Neg-Trace)
[2024-04-02 12:11] LABS: Bacteria Urine 1+ (None Seen); Hyaline Casts Urine 0-2 /LPF (0-2); RBC Urine 0-2 /HPF (0-2); UACC Culture Trigger YES; WBC Urine 21-50 /HPF (0-5)
[2024-04-02 12:38] LABS: Alanine Aminotransferase 12 U/L (0-31); Albumin Level 3.8 g/dL (3.5-5.0); Alkaline Phosphatase 73 U/L (39-117); Anion Gap 10 (12-20); Aspartate Amino Transferase 20 U/L (5-31); Bilirubin Total 0.4 mg/dL (0.0-1.0); Blood Urea Nitrogen 24 mg/dL (9-16); Calcium 9.5 mg/dL (8.4-10.2); Carbon Dioxide 29 mmol/L (22-29); Chloride 105 mmol/L (96-108); Estimated Glomerular Filt Rate > 60; Glucose Random 89 mg/dL (60-115); Iron 51 mcg/dL (30-160); Percent Iron Saturation 22 % (15-50); Potassium 4.1 mmol/L (3.3-5.1); Sodium 140 mmol/L (135-145); Total Iron Binding Capacity 236 mcg/dL (228-428); Total Protein 6.3 g/dL (6.5-8.0); Unsaturated Iron Binding 185 ug/dL
[2024-04-02 12:59] LABS: Ferritin 48 ng/mL (10-250); Free T4 (Free Thyroxine) 0.95 ng/dL (0.71-1.85); Thyroid Stimulating Hormone 2.22 uIU/mL (0.32-4.0); Vitamin D 25-OH Total 63.1 ng/mL (>30)
[2024-04-02 13:04] LABS: Vitamin B12 395 pg/mL (200-900)
== END 2024-04-02 11:27 | disposition home or self-care (01) ==
LOC: HO.LAB 11:26
PROVIDERS: PCP Internal Medicine; Visit Provider Internal Medicine
DX: R30.0 Dysuria (principal); D64.9 Anemia, unspecified
CPT/HCPCS: 36415; 80053; 81001; 81003; 82306; 82607; 82728; 82746; 83540; 84439; 84443; 85025; 85045; 87086; 87088; 87186

== ENCOUNTER 2024-05-17 09:50 | Outpatient (AMB) | payer MEDICARE, OTHER, SELFPAY ==
--- NOTE | 2024-05-17 09:54 | MHC.PC.OV ---
Vital Signs 05/17/24 09:55 Height 4 ft 11 in Weight 110 lb 2 oz BMI 22.2 BP 126/72 Blood Pressure Location Lt brachial Position Sitting Pulse 47 L Pulse Source Pulse Oximeter Temp 96.9 F Temp Source Skin Pulse Oximetry (%) 100 Oxygen Delivery Method Room Air Intake Visit Reasons: Deep vein thrombosis Intake Note: Patient is here to follow up on DVT. 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 per policy Accompanied by: Self / Same As Patient Allergies No Known Allergies Allergy (Verified 05/17/24 09:55) Tobacco use date assessed: 05/17/24 Fall risk assessment: No Falls in past year Last assessed Fall Risk: 05/17/24 Dental Screening Dental Screen Date: 05/17/24 Did you have a dental visit in the last 12 months?: No Did you have a dental problem in the last 6 months where you did not have access to dental care?: No Was dental information given to patient?: No (Dentures) HPI Deep vein thrombosis HPI Details The patient is an 88-year-old female presenting with concerns about medication management and kidney function following hospitalization. Recently, during a hospital admission, the patient experienced another episode of Deep Vein Thrombosis (DVT) and was diagnosed with COVID-19. She was subsequently placed on Eliquis, an anticoagulant to manage the DVT. The patient's previous medication regimen included Losartan with Hydrochlorothiazide (HCTZ) for hypertension, but a change was made to Losartan alone due to low sodium levels detected during her hospital stay. The patient reported obtaining Losartan with HCTZ from the pharmacy mistakenly and noted some puffiness in her foot; however, she stated she felt better while using this combination previously. The laboratory tests conducted in March indicated that kidney function, electrolytes, and blood count were stable, with no anemia or abnormal sugar or liver function reported. The patient was advised to undergo regular kidney function tests biannually. [facility] Surgical History History of left knee replacement History of cataract surgery Family History Mother No problems noted. Father No problems noted. Son No problems noted. Son No problems noted. Daughter No problems noted. Social History (Reviewed 05/17/24 @ 09:54 by RAMEZ Green Housing: Apartment Alcohol intake: current Alcohol intake frequency: a few times a month Comment: ocnce a week 1 glass Patient Tobacco Use Status: Never used Tobacco Tobacco use type: Cigarette e-Cigarette/Vaping Use: Never Used Second Hand Smoke Exposure: No service: No Current occupational status: retired Current occupation: RETIRED Current occupational exposures/hazards: No Cognitive needs: Yes (Walker) Hearing needs: No Vision needs: Yes Questionnaire PHQ-9 Over the last 2 weeks, how often have you been bothered by any of the following problems? 1. Little interest or pleasure in doing things: not at all 2. Feeling down, depressed, or hopeless: not at all 3. Trouble falling or staying asleep, or sleeping too much: not at all 4. Feeling tired or having little energy: not at all 5. Poor appetite or overeating: not at all 6. Feeling bad about yourself - or that you are a failure or have let yourself or your family down: not at all 7. Trouble concentrating on things, such as reading the newspaper or watching television: not at all 8. Moving or speaking so slowly that other people could have noticed. Or the opposite - being so fidgety or restless that you have been moving around a lot more than usual: not at all 9. Thoughts that you would be better off or of hurting yourself in some way: not at all Total score: 0 Depression Screening Interpretation: Negative Depression Screening Done: Yes Source: Developed by Drs. Kamlesh Mckeon, Annette Palacio, Saurabh Mims and colleagues, with an educational lexi from [employer]. Thrive Questionnaire Date Thrive assessed: 05/17/24 I am a: Patient What is your living situation today?: I have a steady place to live Within the past 12 months, did the food you bought not last and you didn't have the money to get more?: Never true Within the past 12 months, did you worry whether your food would run out before you got money to buy more?: Never true Do you have trouble paying for medicines?: No Do you have trouble getting transportation to medical appointments?: No Do you have trouble paying your heating and electricity bill?: No Do you have trouble taking care of your child, family member or friend?: No Do you have trouble with day-to-day activities such as bathing, preparing meals, shopping, managing finances, etc.?: No Are you currently unemployed and looking for a job?: No Are you interested in more education?: No Please select the resources that you would like help with: None Currently or been in a relationship where the following occur: No concerns reported THRIVE Score: 0 AUDIT C Alcohol Use Questionnaire (AUDIT-C) 1. How often do you have a drink containing alcohol?: Monthly or less 2. How many drinks containing alcohol do you have on a typical day when you are drinking?: 1 or 2 Total Score: 1 JOHN-7 AMB Questionnaire JOHN-7 Date JOHN - 7 assessed: 05/17/24 Feeling nervous, anxious, or on edge: 0 = Not at all Not being able to stop or control worryin = Not at all Worrying too much about different things: 0 = Not at all Trouble relaxin = Not at all Being so restless that it is hard to sit still: 0 = Not at all Becoming easily annoyed or irritable: 0 = Not at all Feeling afraid as if something awful might happen: 0 = Not at all Total JOHN-7 score (0-4 normal; 5-9 mild; 10-14 moderate; 15-21 severe): 0 Source: Developed by Drs. Kamlesh Mckeon, Annette Palacio, Saurabh Mims and colleagues, with an educational lexi from [employer]. Physical exam (Primary Care) Vital Signs: Last Vital Signs Temp 96.9 F 05/17/24 09:55 Pulse 47 L 05/17/24 09:55 BP 126/72 05/17/24 09:55 Pulse Ox 100 05/17/24 09:55 Oxygen Delivery Method Room Air 05/17/24 09:55 BMI result Body Mass Index 22.2 Tobacco/Smoking Status: Tobacco use Status Tobacco use date assessed 05/17/24 05/17/24 10:00 Patient Tobacco Use Status Never used Tobacco 05/17/24 09:54 Tobacco use type Cigarette 05/17/24 09:54 e-Cigarette/Vaping Use Never Used 05/17/24 09:54 PHQ-9: PHQ-9 Score PHQ-9: Total score 0 05/17/24 10:00 Depression Screening Interpretation: Negative Thrive Assessment: Date of Thrive Assessment Date Thrive assessed 05/17/24 05/17/24 10:00 Currently or been in a relationship where the following occur: No concerns reported Const General: alert; No acute distress Eyes Conjunctivae: conjunctivae normal Resp Auscultation: clear to auscultation bilaterally Cardio Rate: regular rate Rhythm: regular rhythm GI Inspection: Yes normal to inspection Extrem General: Yes normal to inspection and No edema Coding Level of Care Code Est Pt Level 4 (60197) Complex EM visit Add On G2211 Diagnoses Acute deep vein thrombosis (DVT) of popliteal vein of left lower extremity I82.432 DVT location: lower extremity Affected thrombotic vein of extremity: popliteal Chronicity: acute Laterality: left Primary hypertension I10 Hypertension type: primary hypertension Heterozygous factor V Leiden mutation D68.51 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432 - Acute embolism and thrombosis of left popliteal vein Plan: Patient 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 Decrease salt intake and exercise patient is on losartan 50 mg once a day (3) Heterozygous factor V Leiden mutation: Comment: 2018 Code(s): D68.51 - Activated protein C resistance Category: Medical Plan: Continue with anticoagulation (4) Osteoporosis: Comment: 02/2022 Code(s): M81.0 - Age-related osteoporosis without current pathological fracture Category: Medical Qualifiers: Osteoporosis type: age-related Presence of current pathological fracture: without current pathological fracture Qualified Code(s): M81.0 - Age-related osteoporosis without current pathological fracture Plan: Bone density being done by arthritis treatment center. (5) CKD (chronic kidney disease), stage III: Comment: Dr. Nino Post Code(s): N18.30 - Chronic kidney disease, stage 3 unspecified Category: Surgical Plan: Renal function is stable cholesterol last tested in December and at goal. (6) Hypercholesterolemia: Code(s): E78.00 - Pure hypercholesterolemia, unspecified Category: Medical Plan - Continue Eliquis for anticoagulation to manage Deep Vein Thrombosis, monitor for potential bleeding risks. - Monitor kidney function with laboratory tests every three months to assess stability while on current antihypertensive regimen. - Confirm and update the Losartan with Hydrochlorothiazide prescription with the pharmacy to avoid medication errors. Ensure the patient's condition remains stable and watch for any adverse effects from the medication. - Educate the patient about signs of electrolyte imbalance, particularly regarding sodium and potassium levels; advise immediate reporting of symptoms. 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 Recommend influenza vaccination if not yet received, and advise on protective measures such as mask-wearing in crowded settings. - Reinforce the importance of avoiding contact with symptomatic individuals to decrease the risk of respiratory infections. Orders: Orders Basic Metabolic Panel 3 Months I10 - Essential (primary) hypertension Medications: Refilled losartan-hydrochlorothiazide 50-12.5 mg 1 tab PO DAILY 90 days 90 tabs 3RF Discontinued losartan Discontinued Reason: Patient Refused 50 mg PO DAILY 90 tabs 0RF
[2024-05-17 09:55] VITALS: BP 126/72; PULSE 47; TEMP 36.1; O2SAT 100; BMI 22.2
== END 2024-05-17 11:07 | disposition home or self-care (01) ==
PROVIDERS: PCP Internal Medicine; Visit Provider Internal Medicine
DX: I12.9 Hypertensive chronic kidney disease with stage 1 through stage 4 chronic kidney disease, or unspecified chronic kidney disease (principal); I82.432 Acute embolism and thrombosis of left popliteal vein; D68.51 Activated protein C resistance; N18.30 Chronic kidney disease, stage 3 unspecified; M81.0 Age-related osteoporosis without current pathological fracture; E78.00 Pure hypercholesterolemia, unspecified

== ENCOUNTER → 2024-05-17 09:50 | Outpatient (BNVA) | payer MEDICARE, OTHER, SELFPAY | PROVIDERS: PCP Internal Medicine; Visit Provider Internal Medicine | DX: I82.432 Acute embolism and thrombosis of left popliteal vein (principal); D68.51 Activated protein C resistance; M81.0 Age-related osteoporosis without current pathological fracture; E78.00 Pure hypercholesterolemia, unspecified; I12.9 Hypertensive chronic kidney disease with stage 1 through stage 4 chronic kidney disease, or unspecified chronic kidney disease; N18.30 Chronic kidney disease, stage 3 unspecified | CPT/HCPCS: 99212 ==

== ENCOUNTER 2024-06-04 21:30 | Outpatient (REF) | payer MEDICARE, OTHER, SELFPAY ==
[2024-06-05 11:30] LABS: Appearance Urine Cloudy; Color Urine Yellow; Glucose Urine UA Negative (Negative); Leukocyte Esterase Urine Large (3+) (Negative); Nitrite Urine Negative (Negative); PH 6.5 (5.0-9.0); Specific Gravity - Urine 1.015 (1.005-1.025); UMIC TRIGGER UACC YES; Urine Blood Trace (Negative); Urine Ketones Negative (Negative); Urine Protein Trace mg/dL (Neg-Trace)
[2024-06-05 11:44] LABS: Bacteria Urine None Seen (None Seen); Hyaline Casts Urine 0-2 /LPF (0-2); UACC Culture Trigger YES
--- OUTSIDE RECORDS SUMMARY | 2024-06-05 11:56 | XMS_ITS | Encounter Summary ---
Author Organization [facility] Address [address] [place] [address] Care Team Providers Care Securities Settlement Processor Name Role Phone Post, Jeremias Meraz MD Primary Care Provider Encounter Details Date Type Department Care Team (Late st Contact Info) Description 03/06/2023 Scanned Document [facility] of [facility] Medicine & Nephrology [address] [place] [address] Post, Jeremias Meraz MD [address] [facility] [address] [place] [address] Social History Tobacco Use Types Packs/Day Years Used Date Smoking Tobacco: Never Assessed Sex and Gender Information Value Date Recorded Sex Assigned at Not on file Gender Identity Not on file Sexual Orientation Not on file documented as of this encounter Plan of Treatment Not on file documented as of this encounter Visit Diagnoses Not on filedocumented in this encounter Care Teams Securities Settlement Processor Relationship Specialty Start Date End Date Post, Jeremias Meraz MD [address] [facility] [address] [place] [address] PCP - General 04/16/23 documented as of this encounter
--- OUTSIDE RECORDS SUMMARY | 2024-06-05 11:56 | XMS_ITS | Continuity of Care Document ---
Author Organization [facility] Address [address] [address] [place] [address] Phone Care Team Providers Care Patient Svcs Mgr Name Role Phone Shirley Alcocer OD Unavailable [...] Date Provider Providers Copied on Encounter [facility], [address] [address], [place], [place], [id number], tel:[phone] Nasim Patient presents for a complete exam. (chief complaint) Dry eye syndrome of bilateral lacrimal glands H04.123Presby opia H52.4ABMD / Epithelial corneal dystrophy H18.52Pseudop hakia Z96.1 0 Carlyn Watson. [address], [address], [place], [place], [address], [place]. tel:[phone] Referring Provider: Shirley Watson, [address], [place], [address] . tel:[phone] [facility], [address] [address], [place], [place], [address], tel:[phone] Nasim Patient is here for an annual ocular health evaluation. (chief complaint) Unspecified blepharitis right upper eyelid H01.001Dry eye syndrome of bilateral lacrimal glands H04.123Presen ce of intraocular lens Z96.1 0 Donna Cruz. [address], [place], [place], [address], [place]. tel:[phone] Referring Provider: Anthony Meraz, [address], [place], [address] . tel:[phone] [facility], [address] [address], [place], [place], [address], [phone] [facility] The patient is here for a pseudophakic (IOL) exam (chief complaint) Unspecified blepharitis right upper eyelid H01.191Zuflmp phakia Z96.1Presbyop ia H52.4 Sep-2 6-201 8 Ritalthea Cruz. [address], [place], [place], [address], [place]. tel:[phone] Referring Provider: Anthony Meraz, [address], [place], [address] . tel:[phone] [facility], [address] [address], [place], [place], [address], [phone] [facility] Patient is here for a complete ocular health exam. (chief complaint) Dry eye syndrome of bilateral lacrimal glands H04.123Pseudo phakia Z96.1Presbyop ia H52.4 Nov-3 1- 7 Donna Cruz. [address], [place], [address], [place]. tel:[phone] Referring Provider: Anthony Meraz, [address], [place], [address] . tel:[phone] [facility], [address] [address], [place], [place], [address], [place] tel:[phone] [facility] Patient is here for a pseudophakia exam, both eyes. (chief complaint) Pseudophakia Z96.1Dry eye syndrome of bilateral lacrimal glands H04.123Presby opia H52.4 Nov-1 0-201 6 Donna Cruz. [address], [place], [place], [address], [place]. tel:[phone] Referring Provider: Anthony Meraz, [address], [place], [address] . tel:[phone] [facility], [address] [address], [place], [place], [address], tel:[phone] [facility] The patient is here for a pseudophakic (IOL) exam (chief complaint) Pseudophakia V43.1Dry eye syndrome 375.15Presbyo willie 367.4 Donna Cruz. [address], [place], [place], [address], [place]. tel:[phone] Referring Provider: Armaan Shah, [address], [place], [address] . tel:[phone] [facility], [address] [address], [place], [place], [address], tel:[phone] [facility] No Information Riley Crook. [address], [place], [place], [address], [place]. tel:[phone] Referring Provider: Armaan Shah, [address], [place], [address] . 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 tel:[phone] [facility], [address] [address], [place], [place], [address], [place] tel:[phone] [facility] The patient is here for a 1 week post-op (chief complaint) Lens replaced by prosthesisDry Eye Syndrome Baldo Vazquez. [address], [address], [place], [place], [address]. tel:[phone] Referring Provider: Armaan Shah, [address], [place], [address] . tel:[phone] [facility], [address] [address], [place], [place], [address], [place] tel:[phone] [facility] Patient here for a 1 day post-op s/p cataract surgery. (chief complaint) Lens replaced by prosthesisDry Eye Syndrome Mar-0 3 Jamesher Crook. [address], [place], [place], [address], [place]. tel:[phone] Referring Provider: Armaan Shah, [address], [place], [address] . tel:[phone] [facility], [address] [address], [place], [place], [address], [place] tel:[phone] [facility] No Information 3 Riley Crook. [address], [place], [place], [address], [place]. tel:[phone] Referring Provider: Armaan Shah, [address], [place], [address] . tel:[phone] [facility], [address] [address], [place], [place], [address], [place] tel:[phone] [facility] No Information 3 Riley Crook. [address], [place], [place], [address], [place]. tel:[phone] Referring Provider: Armaan Shah, [address], [place], [address] . tel:[phone] [facility], [address] [address], [place], [place], [address], [place] tel:[phone] [facility] The patient is here for a 1 month post-op (chief complaint) Lens replaced by prosthesisOth er and combined forms of senile cataract Feb- 3 No Information Referring Provider: Armaan Shah, [address], [place], [address] . tel:[phone] [facility], [address] [address], [place], [place], [address], tel: [phone] [facility] The patient is here for a 1 week post-op for the right (chief complaint)She reports wants to have left eye done (chief complaint) Lens replaced by prosthesisOth er and combined forms of senile cataract Jan- 3 No Information Referring Provider: Armaan Shah, [address], [place], [address] . 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 tel:[phone] [facility], [address] [address], [place], [place], [address], tel: [phone] [facility] No Information Jan- 3 Riley Crook. [address], [place], [place], [address], [place]. [phone] Referring Provider: Armaan Shah, [address], [place], [address] . tel:[phone] [facility], [address] [address], [place], [place], [address], tel:[phone] [facility] No Information Jan- 3 Riley Crook. [address], [place], [place], [address], [place]. tel:[phone] Referring Provider: Armaan Shah, [address], [place], [address] . tel:[phone] [facility], [address] [address], [place], [place], [address], [place] [phone] [facility] The patient is here for a cataract evaluation. (chief complaint) Other and combined forms of senile cataract Dec-0 3 Riley Crook. [address], [place], [place], [address], [place]. [phone] Referring Provider: Anthony Meraz, [facility] [address] [facility], [place], [address] . tel:[phone] [facility], [address] [address], [place], [place], [address], [place] [phone] [facility] The patient is here for an ocular health exam (chief complaint) Nuclear sclerosis senile cataractDry Eye SyndromePresb yopia 2 Donna Cruz. [address], [place], [address], [place]. tel:[phone] Referring Provider: Anthony Meraz, [facility] [address], [place], [address] . tel:[phone] [facility], [address] [address], [place], [place], [address], [place] tel:[phone] [facility] The patient is here for an ocular health exam. (chief complaint) SENILE NUCLEAR CATARACTTEAR FILM INSUFFIC NOSPRESBYOPIA Jose R- 1 Donna Cruz. [facility] [address] [place] [address], [id number], [place]. tel:[phone] Referring Provider: Anthony Meraz, [address] [facility] [place] [address], [place], [address] . tel:[phone] Family History Family Member Type Diagnosis Age At Onset Mother Problem (finding) cataract Mother Problem (finding) degenerative disorder o f macula Payers Payer name Insurance type Covered republican ID Hamzah barber(s) Medicare [facility] [id number] [facility] [id number] Social History Type Description Quantity Date Captured [...] for management including topical eye drops and [place] 3's daily. Recommend Systane Balance drops 2 [...] Unspecified blepharitis right upper eyelid H01.001 - Explained in [place], diagnosis with patient. New glasses prescription given today. 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 Recommend Systane Balance drops 2 to 3 times daily, warm compresses and ophthalmic gel at bedtime. 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 New glasses prescription given today. 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 New glasses prescription given today. 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 There is no evidence of permanent changes to cornea. Reviewed options for management including topical eye drops and [place] 3's daily. Recommend Systane Balance drops 2 to 3 times daily, warm compresses and ophthalmic gel at bedtime. 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 New glasses Rx given today. Related to Presbyopia 367.4; - Dry Eyes accounts for patient's complaint. There is no evidence of permanent changes to cornea. Explained no cure at this time. Reviewed options including topical treatments, punctual occlusion and Restasis. Patient elects to try topical treatment.Start Systane Balance drops daily. Related to Dry eye syndrome 375.15; - Stable, OU. 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
--- OUTSIDE RECORDS SUMMARY | 2024-06-05 11:56 | XMS_ITS | Clinical Summary ---
Author Organization [facility] Address [address] [place] [address] Care Team Providers Care Ranch Helper Name Role Phone Unavailable Primary Care Provider [...]
--- OUTSIDE RECORDS SUMMARY | 2024-06-05 11:56 | XMS_ITS | Data Portability ---
Author Organization [facility], ER [facility] Address [address]. [place] [address] Care Team Providers Care System Support Technician Name Role Phone MATTHIAS INFANTE Primary Care Provider ISIAH CARLOS Primary Care Provider Assessment Encounter Date Assessment Date Assessment LastModified by Organization Details LastModified Time 06/17/2015 06/17/[address] Sandoval and he agrees with the treatment plan.? ? ? [email or web address] Not available 06/17/2015 14:42:21 04/25/2018 04/25/2018 I reviewed all past labs, imaging, procedure results, and medical history that were available prior to visit with the patient. [email or web address] Not available 04/25/2018 10:27:06 12/09/2020 12/09/2020 I reviewed all past labs, imaging, procedure results, and medical history that were available prior to visit with the patient. [email or web address] Not available 12/09/2020 16:36:15 Plan of Treatment Reminders Order Date Submit Date Provider Last Modified By Organization Details Last Modified Time Details Appointments None recorded. Lab None recorded. Referral None recorded. Procedures None recorded. Surgeries None recorded. Imaging None recorded. Medication Orders Xifaxan 550 mg tablet 019 019 [email or web address] 9 [id number], [address], [place], [phone], 16:29:23 Xifaxan 550 mg tablet 017 017 asaavedra 9 [facility] #[id number], [address] [facility] [place], [place], [phone], 1 16:29:23 Xifaxan 550 mg tablet 016 016 [email or web address] 9 [facility] #[id number], [address] [place], [place], [phone], 16:29:23 Patient TargetsNo targets recorded. Patient Instructions Encounter Date Encounter Id Patient Instructions Last Modified By Organization Details Last Modified Time 06/17/2015 [id number] specimen collection & handling* [email or web address] Not available 08/28/2015 13:33:07 diet - low fodmap [email or web address] Not available 06/17/2015 14:42:21 07/04/2016 [id number] irritable bowel syndrome: care instructions [email or web address] Not available 07/04/2016 16:38:48 Xifaxin 550 mg 3x/day x 14 days. continue once daily probiotics. follow-up as needed [email or web address] Not available 07/04/2016 16:34:51 04/25/2018 [id number] Drink at least 8 cups WATER daily. Optimize daily dietary FIBER intake - fruits (apples, pears), vegetables (peas, spinach), oatmeal, beans, wheat breads, brown rices, almonds, cold cereals (Raisin Bran, Grape Nuts, Shredded Wheat) & prunes/prune juice. Employ regular physical activity. Steer away from a lot of LACTOSE-containi ng foods & drinks such as milk, ice cream, & soft cheeses (cream cheese, sour cream, cottage cheese, velveeta, brie). Yogurts (containing live active cultures) and hard cheeses are usually okay. Steer away from sugary carbonated sodas, fruit juices, & certain condiments. Steer away from a lot of garlic, onions, celery, apples, & avocados. Pt will initiate Xifaxin 550 mg three times daily for 14 days. Followup as necessary. [email or web address] Not available 04/25/2018 10:41:12 12/09/2020 [id number] Pt can continue to take probiotic Pt will followup as necessary [email or web address] Not available 12/10/2020 11:44:23 Reason for Referral None Reported. Results Created Date Observation Date Name Description Value Unit Range Abnormal Flag Note LastModifiedBy Organization Detail LastModifiedTime Result Notes None recorded. Problems Name Problem SNOMED Code Status Onset Date Resolution Date Notes Provider Name and Address Organization Details Recorded Time Abdominal bloating 115235256 Active 2018 Elisa WatsonAnastasiya Martinez CNP [address] [place], [address] , [facility] 9 10:51:00 Altered bowel function 54594480 Active [facility] 11:55:26 Polyp of colon 24880897 Active OLIVER CELESTINA [facility] 6 11:55:26 Flatulenc e/wind Active bloatin g/gas OLIVERNatty OSCAR [facility] 6 14:42:21 Screening for malignant neoplasm of colon Active OLIVER CELESTINA [facility] 6 14:42:21 Constipat ion 42473091 [facility] 14:[facility]:21 Diverticu lar disease of colon 718025321 Active OLIVER CELESTINA [facility] 6 11:55:26 Problem Notes None recorded. Procedures Surgical History Date Name Laterality Status Provider Name and Address Organization Details Recorded Time 06/30/19 11 Colonoscopy completed Elisa WatsonAnastasiya Martinez CNP [address] [place], [address], [facility] 04/24/2018 21:28:13 Imaging Results None recorded. Procedure Notes None recorded. Medical Equipment None Reported. Allergies No known drug allergies Medications Name Sig Start Date Stop Date Status Note LastModified by Organization Details LastModified Time Prescriptio n - Prior Authorizati on Request 12/09 completed Not Available Not Available Not Available Miralax 17 gram/dose oral powder Take 17 g every week by oral route. active Not Available Not Available No t Available cefuroxime axetil 250 mg tablet 04/25 completed Not Available Not Available Not Available trazodone 50 mg tablet 04/25 completed Not Available Not Available Not Available cephalexin 250 mg capsule 07/04 completed Not Available Not Available Not Available hydrocodone 5 mg-acetamin ophen 325 mg tablet TAKE 1 TABLET BY MOUTH TWICE DAILY NEEDED active Not Available Not Available No t Available metronidazo le 0.75 % (37.5 mg/5 gram) vaginal gel 04/25 completed Not Available Not Available Not Available amlodipine 2.5 mg tablet TAKE 1 TABLET BY MOUTH DAILY 12/09 completed Not Available Not Available Not Available acyclovir 400 mg tablet 04/25 completed Not Available Not Available Not Available triamcinolo ne acetonide 0.1 % topical cream 07/04 completed Not Available Not Available Not Available magnesium oxide 400 mg (241.3 mg magnesium) tablet Take 1 tablet every day by oral route at bedtime. active Not Available Not Available No t Available temazepam 15 mg capsule 1 capsule nightly 04/25 completed Not Available Not Available Not Available cephalexin 500 mg capsule 04/25 completed Not Available Not Available Not Available acyclovir 5 % topical ointment 04/25 completed Not Available Not Available Not Available warfarin 2 mg tablet TAKE 1 TO 1 AND 1/2 TABLETS BY MOUTH DAILY active Not Available Not Available No t Available triamterene 37.5 mg-hydrochl orothiazide 25 mg tablet TK 1 T PO QD 12/09 completed Not Available Not Available Not Available zolpidem 5 mg tablet TAKE 1 TABLET BY MOUTH EVERY NIGHT NEEDED FOR SLEEP active Not Available Not Available No t Available zolpidem 10 mg tablet 04/25 completed Not Available Not Available Not Available losartan 50 mg-hydrochl orothiazide 12.5 mg tablet TAKE 1 TABLET BY MOUTH DAILY active Not Available Not Available No t Available doxycycline hyclate 100 mg tablet 12/09 completed Not Available Not Available Not Available Estrace 0.01% (0.1 mg/gram) vaginal cream 07/04 completed Not Available Not Available Not Available enoxaparin 60 mg/0.6 mL subcutaneou s syringe Inject 50 mg every 12 hours by subcutane ous route. 07/04 completed Not Available Not Available Not Available nitrofurant oin monohydrate /macrocryst als 100 mg capsule TAKE 1 CAPSULE BY MOUTH TWICE DAILY WITH FOOD FOR 5 DAYS 12/09 completed Not Available Not Available Not Available VSL#3 450 billion cell oral powder packet Take 1 packet every day by oral route. 12/09 completed Not Available Not Available Not Available VSL#3 112.5 billion cell capsule Take 1 capsule by oral route for 30 days. 2018 active Not Available Not Available Not Avai lable diclofenac 1 % topical gel Apply 2 g topically 3 times daily. 12/09 completed Not Available Not Available Not Available Xifaxan 550 mg tablet 12/09 completed Not Available Not Available Not Available Vitals Date Recorded Body height Body mass index (BMI) Body weight Heart rate Oxygen saturation Oxygen saturation in Arterial blood by Pulse oximetry Body temperature Systolic blood pressure Diastolic blood pressure Provider Name and Address Organization Details Last Updated DateTime 1 152.4 cm 23.7 kg/m2 57699.4 g 86 /min 93 % 93 % 97.3 [degF] 132 mm[Hg] 78 mm[Hg] Frank Gonzalez [facility] 1 16:26:23 Date Recorded Body weight Oxygen saturation Oxygen saturation in Arterial blood by Pulse oximetry Heart rate Body mass index (BMI) Body height Systolic blood pressure Diastolic blood pressure Provider Name and Address Organization Details Last Updated DateTime 6 69950.8 90529 g 96 % 96 % 58 /min 23.7 kg/m2 152.4 cm 126 mm[Hg] 70 mm[Hg] ANITA HUGHES CMA [facility] 6 11:48:40 Date Recorded Body height Body weight Body mass index (BMI) Heart rate Oxygen saturation Oxygen saturation in Arterial blood by Pulse oximetry Systolic blood pressure Diastolic blood pressure Provider Name and Address Organization Details Last Updated DateTime 7 152.4 cm 80160.6 1 g 24.3 kg/m2 71 /min 96 % 96 % 136 mm[Hg] 72 mm[Hg] ANITA HUGHES CMA [facility] 7 15:54:53 Date Recorded Body height Body mass index (BMI) Body weight Heart rate Oxygen saturation Oxygen saturation in Arterial blood by Pulse oximetry Systolic blood pressure Diastolic blood pressure Provider Name and Address Organization Details Last Updated DateTime 9 152.4 cm 24.2 kg/m2 62659.7 4 g 66 /min 96 % 96 % 140 mm[Hg] 80 mm[Hg] Maryan Jackson [facility] 9 10:20:47 Social History Question Answer Notes LastModified by Organizat ion Details LastModified Time Tobacco Smoking Status Never Smoker Rhina Steve dacosta [facility] 06/16/2015 18:19:44 Do You Have An Advance Directive? Yes Information not available 07/04/2016 What Is Your Level Of Alcohol Consumption? None [email or web address] Information not available 06/16/2015 How Many Years Have You Consumed Alcohol? 0 Information not available 07/04/2016 Is Blood Transfusion Acceptable In An Emergency? No Information not available 12/09/2020 What Is Your Level Of Caffeine Consumption? Moderate Information not available 12/09/2020 How Much Tobacco Do You Chew? None Information not available 06/17/2015 In The 14 Days Before Symptom Onset, Have You Had Close Contact With A Laboratory-confir med COVID-19 While That Case Was Ill? No Information not available 12/09/2020 In The 14 Days Before Symptom Onset, Have You Had Close Contact With A Person Who Is Under Investigation For COVID-19 While That Person Was Ill? No Information not available 12/09/2020 Have You Been To An Area Known To Be High Risk For COVID-19? No Information not available 12/09/2020 Are You Currently Employed? No Information not available 12/09/2020 What Type Of Diet Are You Following? REGULAR Information not available 12/09/2020 Which Illicit Or Recreational Drugs Have You Used? None Information not available 06/17/2015 What Is The Highest Grade Or Level Of School You Have Completed Or The Highest Degree You Have Received? [id number] Information not available 12/09/2020 How Many Days In The Past Year Have You Had A Heavy Drinking Consumption (4+ Female, 5+ Male)? 0 Information no t available 07/04/2016 How Many Years Have You Used Illicit Or Recreational Drugs? 0 Information not available 07/04/2016 Marital Status tania Informatio n not available 06/16/2015 Do You Have A Medical Power Of Pulp Piler? Yes Information not available 12/09/2020 What Was The Date Of Your Most Recent Tobacco Screening? 04/25/2018 Information not available 11/08/2018 Have You Ever Been Counseled For Unhealthy Alcohol Use? Yes Information not available 07/04/2016 What Is Your Relationship Status? Information not available 12/09/2020 At What Age Did You Start Smoking Tobacco? 0 Information not available 07/04/2016 How Much Tobacco Do You Smoke? No Information not available 07/04/2016 Do You Use Any Illicit Or Recreational Drugs? No Information not available 12/09/2020 Has Tobacco Cessation Counseling Been Provided? Yes Information not available 07/04/2016 On What Date Was Tobacco Cessation Counseling Provided? 04/25/2018 [email or web address] Information not available 04/25/2018 How Many Years Have You Smoked Tobacco? 0 Information not available 07/04/2016 Have You Recently Traveled Abroad? No Information not available 12/09/2020 Do You Or Have You Ever Used Any Other Forms Of Tobacco Or Nicotine? No Information not available 12/09/2020 Sex: Unknown Functional Status Question Answer Note LastModified by Organizat ion Details LastModified Time What is your exercise level? Moderate water aerobics Information not available 06/17/2015 Mental Status None recorded. Family History Relationship Description Onset Age of this Age Resolved Age Notes LastModified by Organization Details LastModified Time Father Malignant tumor of esophagus 76 [email or web address] Not available 12/2018 10:34:40 Notes:NO family h/o colon or stomach cancer. Medical History Condition Response DVT Deep Venous Thrombosis Y Arthritis Y Diverticulitis Y Osteoporosis/Osteopenia Y Colon Polyps Y Hypertension Y Kidney Disease Y Gynecological HistoryNo gynecological history recorded. Obstetrics History GPAL:G 0 P 0 0 0 0 Immunizations Vaccine Type Date Status Note Provider Name and Address Organization Details Recorded Time COVID-19 PS Non-US Vaccine (EpiVacCorona) 1 completed Frank dacosta, [facility] 12/09/2020 16:27:22 Influenza A monovalent (H5N1), ADJUVANTED-2012 6 completed KEILY SHEPHERD, [facility] 07/04/2016 16:00:22 Pneumococcal conjugate PCV 13 4 completed KEILY SHEPHERD, [facility] 07/04/2016 16:00:29 zoster live 5 completed KEILY SHEPHERD, [facility] 07/04/2016 16:00:36 Hep C 0 completed KEILY SHEPHERD, [facility] 07/04/2016 16:00:57 Past Encounters Encounter ID Performer Location Encounter Start Date Encounter Closed Date Diagnosis/Indication Diagnosis SNOMED-CT Code Diagnosis ICD10 Code Diagnosis Note [id number] OLIVER OSCAR [facility] [address] [facility] [place] [address] 06/17/2015 11:15:14 06/18/2015 12:40:43 Flatulence/wind 622754553 R14.3 Worsening flatus and gas pain x 3 months. Previous antibiotic treatment with Doxycyclin e in 05/01 was effective in managing gi symptoms x > 6 months. PLAN: Low FODMAP diet. Xifaxin 550 mg TID x 14 days trial for possible SIBO Screening for malignant neoplasm of colon 503261811 Z12.11 Previous colonoscop y 2010 and previous colonoscop y screenings prior to that. Discussed colon cancer screening options with patient today and she would like to go ahead with cologard testing. PLAN: colonoscop y due 06/2015. Cologard- patient is unable to be off Coumadin at this time (d/t recent dvt). Constipation 05259818 K5 9.00 Managed with daily magnesium. [id number] OLIVER OSCAR [facility] [address] [place] [address] 07/04/2016 15:49:30 07/04/2016 16:39:00 Constipation 76731607 K59.00 Managed with daily magnesium and prn Miralax. Likely IBS-C with hx significan t gas/bloati ng, discomfort abdomen, and constipati on.PLAN; continue current constipati on management Flatulence/wind 53940917 5 R14.3 Worsening flatus and gas pain x several months. Previous antibiotic treatment with Doxycyclin e in 05/01 was effective in managing gi symptoms x > 6 months. Xifaxin 06/30 very effective in managing lower gi complaints .PLAN: continue probiotics daily. Xifaxin 550 mg TID x 14 days for suspected SIBO Irritable bowel syndrome 30805398 K58.9 Likely IBS-C with hx significan t gas/bloati ng, discomfort abdomen, and constipati on. [id number] Elisa Martinez CNP [facility] [address] [place] [address] 04/25/2018 09:57:41 04/25/2018 10:46:44 Constipation 67531516 K59.00 Constipati on is controlled with regimen of Miralax, taken most days. Pt will re-employ MgOxide which has been helpful in the past. History of polyp of colon 766563763 Z86.010 Cologuard 06/2015 - Negative. Colonoscop y 06/29/2010, Dr. King noted two 4-6 mm sessile polyps in ascending colon (tubular adenoma). Multiple small & large-mout h diverticul a in sigmoid colon. Moderate non-bleedi ng internal hemorrhoid s. 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 Anticoagulant therapy 18 4397019 Z79.01 Pt has taken Warfarin since ~03/2015. Arthritis 2144086 M19.90 Pt has taken Hydrocodon e once daily for a long time for pain a/w arthritis. [id number] Elisa Martinez CNP [facility] [address] [facility] [place] [address] 12/09/2020 16:20:01 12/09/2020 17:26:57 Constipation 96658074 K59.00 Constipati on is controlled with regimen of Miralax, ~once weekly and daily mg supplement .Pt has found Viome probiotic to be helpful, as well. Osteoarthritis 757547352 M19.90 Pt takes Hydrocodon e once to twice daily Anticoagulant therapy 18 0636769 Z79.01 Pt has taken Warfarin since ~03/2015. Factor V L eiden mutation 684622761 D68.51 History of adenomatous polyp of colon 381226825 Z86.010 Colonoscop y 06/29/2010, Dr King - two 4-6 mm sessile polyps in ascending colon (tubular adenoma). Health Concerns Section Related Observation LastModified by Organization Detai ls LastModified Time None Recorded Concern Status LastModified by Organization Details LastModified Time None Recorded Advance Directives Directive Y: Payers Encounter Date Sequence Insurance Name Policy Number Policy Guevara Covered Member ID Guevara Member ID Guarantor Name 06/17/2015 1 [place]ICARE [place]: [employer] Nanda Vye [id number] Nanda ye 06/17/2015 2 UNICARE - [place] (INDEMNITY) [id number] [id number] Nanda 07/04/2016 1 MEDICARE [place]: [employer] Nanda Vye [id number] Nanda ye 07/04/2016 2 [employer]ICARE - [place]IC (INDEMNITY) [id number] Sierra Vye [id number] Nanda ye 04/25/2018 1 MEDICARE [place]: [employer] Nanda Vye [id number] Nanda Vye 04/25/2018 2 [employer]ICARE - [place]IC (INDEMNITY) [id number] Sierra Vye [id number] Nanda ye 12/09/2020 1 MEDICARE [place]: [employer] Nanda Vye [id number] Nanda Vye 12/09/2020 2 [employer]IC[employer] - GIC (INDEMNITY) [id number] Sierra Maher [id number] Nanda Maher Notes Date Note Type Note Provider Name and Address Organization Details Recorded Time 6 text/html GI General HPIReported bypatient.Upper GI:normal appetite; food does not get stuck when swallowing; no awakening at night with heartburn; no heartburn; no nausea; no vomiting; no coughing while lying down; no coughing while eating Lower GI:no anemia in the last 6 months; no celiac disease; no Crohn's disease; no unexplained weight loss; no diarrhea; no rectal bleeding in last year; does not feel full after bowel movement; no ulcerative colitis;bloating;const ipation(managed with Magnesium daily);history of colon polyps Hepatology:not frequently exhausted; no family history of liver disease; no liver disease; no history of pancreatitis Co-morbidities:no diabetes; no heart disease; no fibromylagia; no depression;osteoporosi sNotes:blood left leg now on Coumadin since . Taking probiotic daily. Last year course of antibiotics which was helpful. ANDIE Currie - [facility] 06/17/2015 14:43:03 7 text/html GI General HPIReported bypatient.Upper GI:normal appetite; food does not get stuck when swallowing; no awakening at night with heartburn; no heartburn; no nausea; no vomiting; no coughing while lying down; no coughing while eating Lower GI:no anemia in the last 6 months; no celiac disease; no Crohn's disease; no unexplained weight loss; no diarrhea; no rectal bleeding in last year; does not feel full after bowel movement; no ulcerative colitis;bloating;const ipation(managed with Magnesium daily and prn miralax);history of colon polyps; cologuard 06/30 negative Hepatology:not frequently exhausted; no family history of liver disease; no liver disease; no history of pancreatitis Co-morbidities:no diabetes; no heart disease; no fibromylagia; no depression;osteoporosi sNotes:blood left leg now on Coumadin since . Taking probiotic daily. Xifaxin 06/30 and very effective in managing lower gi complaints.bm daily - mild chronic constipation managed with Magnesium and prn miralax OLIVER dacosta [facility] 07/04/2016 16:40:35 9 text/html * Incontinence / Bowel Complaints (SWGA)Reported bypatient.HISTORY:Alexa garrido was seen today for follow-up visit.; 82 y/o pt was last seen by Lina VAIL on 07/04/2016 wherein pt reported constipation and bloating. Condition essentially unchanged. *DURATION/ONSET:BMs most days. *CONTEXT:normal urge; no anorectal surgery; no pelvic radiation;narcotic use; Pt has taken Hydrocodone once daily for pain a/w arthritis for a long time. No personal h/o any cancers. -Alleviating Factors:Pt has to use Miralax almost every day. Pt used to take MgOxide. Pt also takes VSL3 probiotic periodically, though expensive. Pt states fiber supplement almost makes matters worse. *ASSOCIATED SYMPTOMS:no abdominal pain; no weight loss; no blood in stool;excess gas;bloating; Pt denies diarrhea. Lower abdominal discomfort at times often relieved with passing of gas. Appetite is okay, never had a great appetite.Notes:Pt denies n/v, dysphagia, or heartburn/reflux. No recent fevers, infections, antibiotics, or travel out of the country, or hospitalizations. Elisa Martinez, GENNA [address] [place], [address], [facility] - [facility] 04/25/2018 10:52:48 1 text/html * Abdominal Pain (SWGA)Reported bypatient.HISTORY:Alexa garrido was seen today for follow-up visit.; 85 y/o pt was last seen 04/25/2018, wherein pt reported constipation. Pt is feeling relatively well today. She is taking Visbiome (high-potency probiotic). Pt states if she takes probiotic regularly, will quick off bouts of constipation, bloating, & stomach discomfort. -Comorbidities:No significant aspirin or NSAIDs; NO personal h/o any cancers. -Family History:no family history of colon cancer -Prior Diagnostic Studies:labs -Alleviating Factors:Pt takes Miralax prn, about once weekly and mg supplement once daily. -Upper GI Symptomsdecreased appetite; no nausea; no vomiting; no heartburn; no dysphagia; no odynophagia; Pt denies any abdominal pain. Appetite fluctuates, which she a/w aging. -Lower GI Symptoms:constipation; bloating; no diarrhea; no change in bowel habits; no rectal bleeding; BMs most days. Stools are soft. -Other Symptoms:no unexplained weight loss; no fever Elisa Martinez, GENNA [address] [place], [address], [facility] 12/10/2020 11:45:33 OBGyn Episode No OBEpisode recorded.
== END 2024-06-04 21:31 | disposition home or self-care (01) ==
LOC: HO.LNP 21:30
PROVIDERS: Visit Provider Internal Medicine
DX: N39.0 Urinary tract infection, site not specified (principal); R35.0 Frequency of micturition
CPT/HCPCS: 81001; 87086

== ENCOUNTER 2024-06-05 09:42 | Outpatient (REF) | payer MEDICARE, OTHER, SELFPAY ==
--- OUTSIDE RECORDS SUMMARY | 2024-06-05 10:04 | XMS_ITS | Data Portability ---
Author Organization [place] - [facility], [facility] Address [address] [place] [address] Care Team Providers Care Clinical Social Work Aide Name Role Phone FARIDA BREWER Referring Provider [phone] Assessment Encounter Date Assessment Date Assessment LastModified by Organization Details LastModified Time 01/26/2024 01/26/2024 Assessment: Excellent progression, pt has improved gait on stairs and able to functionally move in the home and community. Plan: Continue PT @ 2x/wk to improve ROM and LE strength as tolerated. Gait training with LRAD and proper body mechanics. Not available 01/29/2024 22:47:07 01/31/2024 01/31/2024 Assessment: Good flexion ROM and able to tolerate all ther-ex without increased sxs or pain. Pt continues to ambulate with both rolling walker and cane due to LBP. Plan: Continue PT @ 2x/wk to improve ROM and LE strength as tolerated. Gait training with LRAD and proper body mechanics. [email or web address] Not available 01/31/2024 10:53:44 02/02/2024 02/02/2024 Assessment: Good flexion ROM and able to tolerate all ther-ex without increased sxs or pain. Pt continues to ambulate with both rolling walker and cane due to LBP. 02/01. Unable to increase intensity for LE strength due to weakness. Mild extension lag with SLR. Pt ambulates with flexed trunk due to LBP and without AD for short distance. Plan: Continue PT @ 2x/wk to improve ROM and LE strength as tolerated. Gait training with LRAD and proper body mechanics. [email or web address] Not available 02/02/2024 16:50:00 02/07/2024 02/07/2024 Assessment: At this time pt has met all ROM goals. Pt demonstrates functional strength, able to ascend and descend a full flight of stairs reciprocally using B railings, stand from chair surface level and transfer surface to surface IND. 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 They report they have returned to most activities of daily living. The patient has no specific concerns today in the office. They have completed outpatient physical therapy. The patient continues to ambulate with a cane and rollator walker. She is very satisfied with the outcome of her surgical procedure. Past family, medical, social history and review of systems has been reviewed, updated and is located in the patient? s chart. EXAM: The patient ambulates with a non-antalgic gait. The surgical wound is well-healed. There is no erythema, redness, or signs of infection. Left knee range of motion 0-130? ? ?. There is no significant sub-patellar crepitus. There is expected postoperative swelling but no significant effusion. The knee is stable to varus and valgus loading at 0 and 90? ? ? without evidence of significant instability. IMAGING: Previously obtained X-rays reviewed in the office today on [facility]: Weightbearing AP of both knees, lateral of the left knee, and sunrise view of both knees demonstrate; Show appropriate position of the patient's left total knee arthroplasty. Overall limb alignment is neutral. Implant position is satisfactory. Patellar tracking is midline. Bone implant interfaces are intact and no evidence of fracture or osteolysis IMPRESSION: Status post Left total knee arthroplasty PLAN: At this point, the patient is doing extremely well following their total knee arthroplasty. I encouraged them to continue a home exercise and walking program. We discussed activity modification, dental prophylaxis, and the importance of long-term follow-up. I encouraged them to return to the office periodically for routine follow-up; sooner if any issues arise. I attempted to answer all of their questions today in the office. Socitive speech recognition airborne mission systems superintendent software was used to create portions of this document. An attempt at proofreading has been made to minimize errors. Please call for corrections. [email or web address] Not available 04/03/2024 14:11:30 Plan of Treatment Reminders Order Date Submit Date Provider Last Modified By Organization Details Last Modified Time Details Appointments None record ed. Lab None record ed. Referral None record ed. Procedures None record ed. Surgeries None record ed. Imaging None record ed. Medication Orders None record ed. Patient TargetsNo targets recorded. Patient InstructionsNo instructions recorded. Reason for Referral None Reported. Results Created Date Observation Date Name Description Value Unit Range Abnormal Flag Note LastModifiedBy Organization Detail LastModifiedTime 01/04/20 24 01/04/2024 US, darcile x, venou s, lower extre mity No observ ation record ed. [facility] (Imaging) [address] [facility], [place], [address], 01/04/2024 18:19:27 01/11/20 24 01/11/2024 XR, knee, 3 view [email or web address]:/ [email or web address] ?Encry pted=s hAaTro YD8dLq bEUv6g %2BXZw aYqtaq 0bqfl% 2Fg9IQ a4ajBk vP9nXo QUaueC m3YtLR FvZlgJ JJ8mAn HZtai3 2v5231 AC0Kqa nSHVae hKiQtr MwF INTERFACE [facility] [address] [facility] [address] [place] [address], [place], [address], 01/11/2024 14:14:12 01/11/20 24 01/11/2024 XR, knee, 3 view [email or web address]:/ [email or web address] ?Encry pted=s hAaTro YD8dLq bEUv6g %2BXZw aYqtaq 0bqfl% 2Fg9IQ a4ajBk vP9nXo QUaueC m3YtLR FvZlgJ JJ8mAn HZtai3 3y8011 AC0Kqa nSHVae hKiQtr MwF INTERFACE [facility] [address], [place], [address], 01/11/2024 14:14:14 Result Notes None recorded. Problems Name Problem SNOMED Code Status Onset Date Resolution Date Notes Provider Name and Address Organization Details Recorded Time Osteoarthri tis of left knee joint 3151856331119 09 Active 2023 Vinicio Alfaro MD [address], [place], [address], [facility] 15:33:12 Problem Notes None recorded. Procedures Surgical History Date Name Laterality Status Provider Name and Address Organization Details Recorded Time 20302 Therapeutic Exercise (1:1) completed Johanna Hurtado, BLASTING WORKER [address], [place], [address], [facility] 02/09/2024 01:34:11 57284: Manual therapy completed Johanna Hurtado BLASTING WORKER [address], [place], [address], [facility] 02/09/2024 01:34:12 51792 Therapeutic Exercise (1:1) completed Zafar Yoder DPT [address], [place], [address], [facility] 01/31/2024 12:29:58 10853: Manual therapy completed Zafar Yoder DPT [address], [place], [address], [facility] 02/02/2024 16:48:10 13310 Therapeutic Exercise (1:1) completed Zafar Yoder DPT [address], [place], [address], [facility] 01/30/2024 21:24:47 38814: Manual therapy completed Zafar Yoder DPT [address], [place], [address], [facility] 01/30/2024 21:24:47 29655 Therapeutic Exercise (1:1) completed Johanna Hurtado, BLASTING WORKER [address], [place], [address], [facility] 01/26/2024 10:18:22 54453: Manual therapy completed Johanna Hurtado, BLASTING WORKER [address], [place], [address], [facility] 01/26/2024 10:18:22 4 80446 Therapeutic Exercise (1:1) completed Zafar Yoder DPT [address], [place], [address], [facility] 01/22/2024 08:27:44 82464: Manual therapy completed Zafar Yoder DPT [address], [place], [address], [facility] 01/22/2024 08:27:44 25735 Therapeutic Exercise (1:1) completed Johanna Hurtado, BLASTING WORKER [address], [place], [address], [facility] 01/21/2024 22:27:04 4 52319: Manual therapy completed Johanna Hurtado, BLASTING WORKER [address], [place], [address], [facility] 01/21/2024 22:27:04 36907 Therapeutic Exercise (1:1) completed Johanna Hurtado, BLASTING WORKER [address], [place], [address], [facility] 01/17/2024 08:37:57 08296: Manual therapy completed Johanna Hurtado, BLASTING WORKER [address], [place], [address], [facility] 01/17/2024 08:37:57 25191 Therapeutic Exercise (1:1) completed Zafar Yoder DPT [address], [place], [address], [facility] 01/12/2024 19:47:12 4 60262: Manual therapy completed Zafar Yoder DPT [address], [place], [address], [facility] 01/12/2024 19:47:20 4 01109 Therapeutic Exercise (1:1) completed Zafar Yoder DPT [address], [place], [address], [facility] 01/10/2024 12:33:57 4 00286: Low complexity PT Eval completed Zafar Yoder DPT [address], [place], [address], [facility] 01/10/2024 12:34:02 4 G8420 BMI Normal, No Follow-Up Plan Required completed Zafar Yoder DPT [address] [facility], [place], [address], [facility] 01/10/2024 12:34:14 4 G8427 Current Medication Documented completed Zafar Yoder DPT [address] [facility], [place], [address], [facility] 01/10/2024 12:34:12 4 78749 Therapeutic Exercise (1:1) cancelled Zafar Yoder DPT [address], [place], [address], [facility] 01/03/2024 20:56:34 4 77352: Low complexity PT Eval cancelled Zafar Yoder DPT [address], [place], [address], [facility] 01/03/2024 20:56:34 4 G8420 BMI Normal, No Follow-Up Plan Required cancelled Zafar Yoder DPT [address], [place], [address], [facility] 01/03/2024 20:56:34 4 G8427 Current Medication Documented cancelled Zafar Yoder DPT [address] [facility], [place], [address], [facility] 01/03/2024 20:56:34 4 61702 Therapeutic Exercise (1:1) completed Zafar Yoder DPT [address], [place], [address], [facility] 12/01/2023 12:00:00 4 81627: Low complexity PT Eval completed Zafar Yoder DPT [address] [facility], [place], [address], [facility] 12/01/2023 12:00:09 4 G8420 BMI Normal, No Follow-Up Plan Required completed Zafar Yoder DPT [address] [facility], [place], [address], [facility] 12/01/2023 12:00:16 4 G8427 Current Medication Documented completed Zafar Yoder DPT [address] [facility], [place], [address], [facility] 12/01/2023 12:00:12 Imaging Results Imaging Date Name Status LastModified by Organiz ation Details LastModified Time 01/04/2024 US, duplex, venous, lower extremity completed [facility] (Imaging) [address] [facility], [place], [address], 01/04/2024 18:19:27 01/11/2024 XR, knee, 3 view completed [facility] [address] [facility], [place], [address], 01/11/2024 14:14:12 01/11/2024 XR, knee, 3 view completed [facility] [address], [place], [address], 01/11/2024 14:14:14 Procedure Notes None recorded. Medical Equipment None Reported. Allergies No known drug allergies Medications Name Sig Start Date Stop Date Status Note LastModified by Organization Details LastModified Time losartan 50 mg tablet TAKE 1 TABLET BY MOUTH EVERY DAY active Not Available Not Available No t Available cephalexin 250 mg capsule TAKE 1 CAPSULE BY MOUTH THREE TIMES DAILY FOR 5 DAYS 04/03 completed Not Available Not Available Not Available ciprofloxac in 250 mg tablet TAKE 1 TABLET BY MOUTH TWICE DAILY active Not Available Not Available No t Available tramadol 50 mg tablet TAKE 1 TO 2 TABLETS BY MOUTH EVERY 6 HOURS NEEDED FOR MILD PAIN. DO NOT EXCEED 8 TABLETS (400MG) PER DAY. active Not Available Not Available No t Available pantoprazol e 40 mg tablet,erlinda yed release TAKE 1 TABLET BY MOUTH EVERY DAY 04/03 completed Not Available Not Available Not Available clotrimazol e-betametha sone 1 %-0.05 % topical cream APPLY TOPICALLY TO THE AFFECTED AREA THREE TIMES DAILY FOR 14 DAYS 04/03 completed Not Available Not Available Not Available warfarin 2 mg tablet TAKE 1 AND 1/2 TABLETS BY MOUTH EVERY DAY OR DIRECTED 04/03 completed Not Available Not Available Not Available mupirocin 2 % topical ointment APPLY TOPICALLY TO THE AFFECTED AREA THREE TIMES DAILY FOR 7 DAYS 04/03 completed Not Available Not Available Not Available zolpidem 5 mg tablet TAKE 1 TABLET BY MOUTH AT BEDTIME NEEDED FOR INSOMNIA active Not Available Not Available No t Available warfarin 1 mg tablet TAKE 1 TO 10 TABLETS BY MOUTH DAILY DIRECTED BY NEOS 04/03 completed Not Available Not Available Not Available losartan 50 mg-hydrochl orothiazide 12.5 mg tablet TAKE 1 TABLET BY MOUTH DAILY 04/03 completed Not Available Not Available Not Available clotrimazol e 1 % topical cream APPLY TOPICALLY TO THE AFFECTED AREA TWICE DAILY FOR 4 WEEKS 04/03 completed Not Available Not Available Not Available oxycodone 5 mg tablet TAKE 1 TABLET BY MOUTH EVERY 4 HOURS NEEDED FOR MODERATE PAIN 04/03 completed Not Available Not Available Not Available neomycin 3.5 mg/g-polymy ricky B 10,000 unit/g-dexa meth 0.1 % eye oint APPLY 1/4 INCH OINTMENT TO BOTH EYELIDS TWICE DAILY NEEDED FOR EYE REDNESS AND IRRIATION 04/03 completed Not Available Not Available Not Available enoxaparin 40 mg/0.4 mL subcutaneou s syringe INJECT 40 MG SUBCUTANE OUSLY EVERY 12 HOURS 04/03 completed Not Available Not Available Not Available Eliquis 5 mg tablet TAKE 1 TABLET BY MOUTH TWICE DAILY active Not Available Not Available No t Available baclofen 5 mg tablet Take 1 tablet 3 times a day by oral route for 10 days, for muscle spasms. 04/03 completed Not Available Not Available Not Available Vitals Date Recorded Body height Body mass index (BMI) Body weight Provider Name and Address Organization Details Last Updated DateTime 04/03/2024 151.13 cm 22.2 kg/m2 35492.35 g Ayo Armstrong [place] - [facility] 04/03/2024 13:41:34 Social History None recorded. Functional Status None recorded. Mental Status None recorded. Family History Nothing Reported. Medical History Condition Response Arthritis Y Blood Clot Y Kidney/Bladder Problems Y Cholesterol Y Bleeding Disorder Y Hypertension Y Gynecological HistoryNo gynecological history recorded. Obstetrics History GPAL:G 0 P 0 0 0 0 Past Encounters Encounter ID Performer Location Encounter Start Date Encounter Closed Date Diagnosis/Indication Diagnosis SNOMED-CT Code Diagnosis ICD10 Code Diagnosis Note [id number] MD [facility] [address] [place] [address] 06/29/2023 12:51:42 07/04/2023 10:11:51 Pain of left knee region 7702678202 49457 M25.562 Osteoarthr itis of left knee joint 0866924248 07826 M17.12 [id number] MD [facility] 2[address] [place] [address] 08/23/2023 08:32:50 09/16/2023 20:44:51 Osteoarthritis of left knee joint 8119638610 27406 M17.12 [id number] MD [facility] [address] [place] [address] 12/01/2023 09:07:56 12/01/2023 09:52:58 Osteoarthritis of knee 101933366 M17.12 [id number] Sudha Negro, TIRE SETTER [facility] [address] [place] [address] 12/20/2023 11:08:02 01/14/2024 04:00:40 Osteoarthritis of left knee joint 7573651621 41537 M17.12 [id number] Vinicio Alfaro MD [facility] [address] [place] [address] 12/20/2023 13:15:04 01/11/2024 04:03:32 Osteoarthritis of left knee joint 9670743946 52579 M17.12 [id number] Vinicio Alfaro MD [facility] [address] [place] [address] 01/10/2024 08:16:45 01/10/2024 09:26:53 History of left total knee replacement 9606574347 116154 Z96.652 Z47.1 [id number] Zafar Yoder, DPT [facility] [address] [place] [address] 01/12/2024 14:58:53 01/12/2024 16:10:48 History of left total knee replacement 4625869512 606231 Z96.652 Z47.1 [id number] Eloise Kinsey PA-C [facility] [address] [place] [address] 01/11/2024 13:21:21 01/24/2024 09:47:28 Postoperative care 414598455 Z48.89 [id number] Mayo Sanchez, PT [facility] [address] [place] [address] 01/17/2024 09:01:13 01/17/2024 09:01:56 History of left total knee replacement 9799000348 088049 Z96.652 Z47.1 [id number] Mayo Sanchez, PT [facility] [address] [place] [address] 01/19/2024 10:42:24 01/19/2024 13:17:43 History of left total knee replacement 6028646660 247826 Z96.652 Z47.1 [id number] Zafar Yoder DPT [facility] [address] [place] [address] 01/22/2024 10:51:27 01/22/2024 11:36:06 History of left total knee replacement 2670456028 310917 Z96.652 Z47.1 [id number] Eloise Kinsey PA-C [facility] [address] [place] [address] 01/25/2024 13:11:31 02/15/2024 07:43:01 Postoperative care 088741908 Z48.89 [id number] Mayo Sanchez, PT [facility] [address] [place] [address] 01/26/2024 09:54:02 01/26/2024 10:24:34 History of left total knee replacement 8973460208 992753 Z96.652 Z47.1 [id number] Zafar Yoder DPT [facility] [address] [place] [address] 01/31/2024 09:18:39 01/31/2024 10:22:05 History of left total knee replacement 4208463455 329748 Z96.652 Z47.1 [id number] Zafar Yoder DPT [facility] [address] [place] [address] 02/02/2024 09:23:47 02/02/2024 10:36:37 History of left total knee replacement 5793867770 961943 Z96.652 Z47.1 [id number] Mayo Sanchez, PT [facility] [address] [place] [address] 02/07/2024 09:22:51 02/07/2024 11:25:19 History of left total knee replacement 4494366702 643227 Z96.652 Z47.1 [id number] Vinicio Alfaro MD [facility] [address] [place] [address] 04/03/2024 13:21:27 04/25/2024 12:17:36 History of left total knee replacement 4494748714 169064 Z96.652 Health Concerns Section Related Observation LastModified by Organization Detai ls LastModified Time None Recorded Concern Status LastModified by Organization Details LastModified Time None Recorded Advance Directives Directive None Recorded Payers Encounter Date Sequence Insurance Name Policy Number Policy Guevara Covered Member ID Guevara Member ID Guarantor Name 01/26/2024 2 [employer]AN - [employer] [id number] Sierra Vye [id number] Nanda Vye 01/26/2024 1 [place] [facility] Nanda Vye [id number] Nanda Vye 01/31/2024 2 COMMONWE[employer] INDEMNITY PLAN - [employer] [id number] Sierra Vye [id number] Nanda Vye 01/31/2024 1 [place] [facility] Nanda Vye [id number] Nanda Vye 02/02/2024 2 COMM[employer] INDEMNITY PLAN - [employer] [id number] Sierra Vye [id number] Nanda Vye 02/02/2024 1 [place] [facility] Nanda Vye [id number] Nanda Vye 02/07/2024 2 COMMONWE[employer] INDEMNITY PLAN - [employer] [id number] Sierra Vye [id number] Nanda Vye 02/07/2024 1 [place] [facility] Nanda Vye [id number] Nanda Vye 04/03/2024 2 COMMONWEALTH INDEMNITY PLAN - [employer] [id number] Sierra Vye [id number] Nanda Vye 04/03/2024 1 [place] [facility] Nanda Vye [id number] Nanda Vye Notes Date Note Type Note Provider Name and Address Organization Details Recorded Time 01/26/2024 text/html Pt reports she is able to do going down stairs reciprocally. Right knee feels good. Pt continues to use her walker due to pain in the left knee and lower back.Pains 0/10 in right knee at rest Johanna Hurtado, BLASTING WORKER [address], [place], [address], [facility] 01/29/2024 22:47:28 01/31/2024 text/html Pt reports she fell yesterday but did not hit her knee on the ground. Pt had muscle relaxor which helps for her spasm.Pains 0/10 at rest. TIMOTHY MurilloT [address], [place], [address], [facility] 01/31/2024 10:53:56 02/02/2024 text/html Pt reports she fell yesterday but did not hit her knee on the ground. Pt had muscle relaxor which helps for her spasm.02/01. Pt states no pain and no spasm in her knee today. Pains 0/10 at rest. TIMOTHY MurilloT [address], [place], [address], [facility] 02/02/2024 16:50:32 02/07/2024 text/html Pt reports has been doing well. Still has some swelling and bruising from fall last week.Pain is 0/10 at rest. Johanna Hurtado, BLASTING WORKER [address], [place], [address], [facility] 02/09/2024 01:39:38 OBGyn Episode No OBEpisode recorded.
--- OUTSIDE RECORDS SUMMARY | 2024-06-05 10:04 | XMS_ITS | Clinical Summary ---
Author Organization [facility] Address [address] [place] [address] Care Team Providers Care Assembler Adjuster Name Role Phone Unavailable Primary Care Provider Unavailabl e Social History Tobacco Use Types Packs/Day Years Used Date Smoking Tobacco: Never Assessed Sex and Gender Information Value Date Recorded Sex Assigned at Not on file Gender Identity Not on file Sexual Orientation Not on file Plan of Treatment Health Maintenance Due Date Last Done Comments DTaP/Tdap/Td Vaccines (1 - Tdap) 11/12/1954 Pneumococcal Vaccines 50+ (1 of 1 - PCV) 11/12/1985 Zoster (Shingles) Vaccine (1 of 2) 11/12/1985 RSV Vaccine 60 years and old er and Patients (1 - 1-dose 75+ series) 11/12/2010 COVID-19 Vaccine (2023-2 5 season) 2023 Hepatitis B Vaccines Aged Out No long er eligible based on patient's age to complete this topic
--- OUTSIDE RECORDS SUMMARY | 2024-06-05 10:04 | XMS_ITS | Encounter Summary ---
Author Organization [facility] Address [address] [place] [address] Care Team Providers Care Field Horticultural Specialty Grower Name Role Phone Post, Jeremias Meraz MD Primary Care Provider Encounter Details Date Type Department Care Team (Late st Contact Info) Description 03/06/2023 Scanned Document [facility] Department of Internal Medicine & Nephrology [address] [place] [address] Post, Jeremias Meraz MD [address] [facility] [address] [place] [address] Social History Tobacco Use Types Packs/Day Years Used Date Smoking Tobacco: Never Assessed Sex and Gender Information Value Date Recorded Sex Assigned at Not on file Gender Identity Not on file Sexual Orientation Not on file documented as of this encounter Plan of Treatment Not on file documented as of this encounter Visit Diagnoses Not on filedocumented in this encounter Care Teams Field Horticultural Specialty Grower Relationship Specialty Start Date End Date Post, Jeremias Meraz MD [address] [facility] [address] [place] [address] PCP - General 04/16/23 documented as of this encounter
--- OUTSIDE RECORDS SUMMARY | 2024-06-05 10:04 | XMS_ITS | Continuity of Care Document ---
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 Name Role Phone Shirley Alcocer OD Unavailable Unavailable Allergies, Adverse Reactions, Alerts Substance Reaction Status Criticality No Known Allergies Active No Inform ation Medications Medication Instructions Dosage Effective Dates (start - stop) Status Comments warfarin 2 mg tablet - Activ e hydrocodone 5 mg-acetaminophen 325 mg tablet - Active TRIAMTERENE-HYDROCHLOR OTHIAZID (unknown strength) Not Available - Active AMLODIPINE BESYLATE (unknown strength) Not Available - Active CALTRATE 600 (unknown strength) Not Available - Active Procedures Procedure Date Comp eye examination, estab patient No Charge Refraction Comp eye examination, estab patient No Charge Refraction Comp eye examination, estab patient Determination of refractive state Comp eye examination, estab patient Determination of refractive state Comp eye examination, estab patient Determination of refractive state Comp eye examination, estab patient Determination of refractive state Pre Op Kit Postop followup visit Determination of refractive state Postop followup visit Postop followup visit Remove cataract, insert lens prosth Ophthalmic Biometry Prof Comp 3 Postop followup visit Postop followup visit Oct-23-2013 Postop followup visit Remove cataract, insert lens prosth Ophthalmic biometry Pre Op Kit NC Lab Test Comp eye examination, estab patient Comp eye examination, estab patient Determination of refractive state Comprehensive eye exam, new patient Determination of refractive state Advance Directives Directive Yes / No Effective Date File Name No Information Encounters Encounter Description Practice Location Reason(s) For Visit Diagnoses Date Provider Providers Copied on Encounter Eye [facility], [address] [address], [place], [place], [id number], tel:[phone] Nasim Patient presents for a complete exam. (chief complaint) Dry eye syndrome of bilateral lacrimal glands H04.123Presby opia H52.4ABMD / Epithelial corneal dystrophy H18.52Pseudop hakia Z96.1 0 Carlyn Watson. [address], [address], [place], [place], [address], [place]. tel:[phone] Referring Provider: Shirley Watson, [address], [place], [address] . tel:[phone] [facility], [address] [address], [place], [place], [address], tel:[phone] Nasim Patient is here for an annual ocular health evaluation. (chief complaint) Unspecified blepharitis right upper eyelid H01.001Dry eye syndrome of bilateral lacrimal glands H04.123Presen ce of intraocular lens Z96.1 0 Donna Cruz. [address], [place], [place], [address], [place]. tel:[phone] Referring Provider: Anhtony Meraz, [address], [place], [address] . tel:[phone] [facility], [address] [address], [place], [place], [address], [phone] [facility] The patient is here for a pseudophakic (IOL) exam (chief complaint) Unspecified blepharitis right upper eyelid H01.067Yiokhk phakia Z96.1Presbyop ia H52.4 Sep-2 6-201 8 Ritalthea Cruz. [address], [place], [place], [address], [place]. tel:[phone] Referring Provider: Anthony Meraz, [address], [place], [address] . tel:[phone] [facility], [address] [address], [place], [place], [address], [phone] [facility] Patient is here for a complete ocular health exam. (chief complaint) Dry eye syndrome of bilateral lacrimal glands H04.123Pseudo phakia Z96.1Presbyop ia H52.4 Nov-3 1- 7 Donna Cruz. [address], [place], [address], [place]. tel:[phone] Referring Provider: Anthony Meraz, [address], [place], [address] . tel:[phone] [facility], [address] [address], [place], [place], [address], [place] tel:[phone] [facility] Patient is here for a pseudophakia exam, both eyes. (chief complaint) Pseudophakia Z96.1Dry eye syndrome of bilateral lacrimal glands H04.123Presby opia H52.4 Nov-1 0-201 6 Donna Cruz. [address], [place], [place], [address], [place]. tel:[phone] Referring Provider: Anthony Meraz, [address], [place], [address] . tel:[phone] [facility], [address] [address], [place], [place], [address], tel:[phone] [facility] The patient is here for a pseudophakic (IOL) exam (chief complaint) Pseudophakia V43.1Dry eye syndrome 375.15Presbyo willie 367.4 Donna Cruz. [address], [place], [place], [address], [place]. tel:[phone] Referring Provider: Armaan Shah, [address], [place], [address] . tel:[phone] [facility], [address] [address], [place], [place], [address], tel:[phone] [facility] No Information Riley Crook. [address], [place], [place], [address], [place]. tel:[phone] Referring Provider: Armaan Shah, [address], [place], [address] . tel:[phone] [facility], [address] [address], [place], [place], [address], tel:[phone] [facility] The patient is here for a 1 month post-op (chief complaint) Lens replaced by prosthesis No Information Referring Provider: Armaan Shah, [address], [place], [address] . tel:[phone] [facility], [address] [address], [place], [place], [address], [place] tel:[phone] [facility] The patient is here for a 1 week post-op (chief complaint) Lens replaced by prosthesisDry Eye Syndrome Baldo Vazquez. [address], [address], [place], [place], [address]. tel:[phone] Referring Provider: Armaan Shah, [address], [place], [address] . tel:[phone] [facility], [address] [address], [place], [place], [address], [place] tel:[phone] [facility] Patient here for a 1 day post-op s/p cataract surgery. (chief complaint) Lens replaced by prosthesisDry Eye Syndrome Mar-0 3 Jamesher Crook. [address], [place], [place], [address], [place]. tel:[phone] Referring Provider: Armaan Shah, [address], [place], [address] . tel:[phone] [facility], [address] [address], [place], [place], [address], [place] tel:[phone] [facility] No Information 3 Riley Crook. [address], [place], [place], [address], [place]. tel:[phone] Referring Provider: Armaan Shah, [address], [place], [address] . tel:[phone] [facility], [address] [address], [place], [place], [address], [place] tel:[phone] [facility] No Information 3 Riley Crook. [address], [place], [place], [address], [place]. tel:[phone] Referring Provider: Armaan Shah, [address], [place], [address] . tel:[phone] [facility], [address] [address], [place], [place], [address], [place] tel:[phone] [facility] The patient is here for a 1 month post-op (chief complaint) Lens replaced by prosthesisOth er and combined forms of senile cataract Feb- 3 No Information Referring Provider: Armaan Shah, [address], [place], [address] . tel:[phone] [facility], [address] [address], [place], [place], [address], tel: [phone] [facility] The patient is here for a 1 week post-op for the right (chief complaint)She reports wants to have left eye done (chief complaint) Lens replaced by prosthesisOth er and combined forms of senile cataract Jan- 3 No Information Referring Provider: Armaan Shah, [address], [place], [address] . tel:[phone] [facility], [address] [address], [place], [place], [address], tel:[phone] [facility] Patient is here for a 1 day post-op s/p cataract surger (chief complaint) Lens replaced by prosthesis Jan- 3 No Information Referring Provider: Amraan Shah, [address], [place], [address] . tel:[phone] [facility], [address] [address], [place], [place], [address], tel: [phone] [facility] No Information Jan- 3 Riley Crook. [address], [place], [place], [address], [place]. [phone] Referring Provider: Armaan Shah, [address], [place], [address] . tel:[phone] [facility], [address] [address], [place], [place], [address], tel:[phone] [facility] No Information Jan- 3 Riley Crook. [address], [place], [place], [address], [place]. tel:[phone] Referring Provider: Armaan Shah, [address], [place], [address] . tel:[phone] [facility], [address] [address], [place], [place], [address], [place] [phone] [facility] The patient is here for a cataract evaluation. (chief complaint) Other and combined forms of senile cataract Dec-0 3 Riley Crook. [address], [place], [place], [address], [place]. [phone] Referring Provider: Anthony Meraz, [facility] [address] [facility], [place], [address] . tel:[phone] [facility], [address] [address], [place], [place], [address], [place] [phone] [facility] The patient is here for an ocular health exam (chief complaint) Nuclear sclerosis senile cataractDry Eye SyndromePresb yopia 2 Donna Cruz. [address], [place], [address], [place]. tel:[phone] Referring Provider: Anthony Meraz, [facility] [address], [place], [address] . tel:[phone] [facility], [address] [address], [place], [place], [address], [place] tel:[phone] [facility] The patient is here for an ocular health exam. (chief complaint) SENILE NUCLEAR CATARACTTEAR FILM INSUFFIC NOSPRESBYOPIA Jose R- 1 Donna Cruz. [facility] [address] [place] [address], [id number], [place]. tel:[phone] Referring Provider: Anthony Meraz, [address] [facility] [address], [place], [address] . tel:[phone] Family History Family Member Type Diagnosis Age At Onset Mother Problem (finding) cataract Mother Problem (finding) degenerative disorder o f macula Payers Payer name Insurance type Covered alliance party ID Hamzah barber(s) Medicare [facility] [id number] [facility] [id number] Social History Type Description Quantity Date Captured Comments Alcohol Use Details Unknown Caffeine Use Details Unknown Tobacco Use Status Never smoked tobacco 2019 Smoking Status Never smoker Non-Smoking Tobacco Use Details : No Details Available : No Details Available Sex Female Chief Complaint And Reason For Visit From encounter dated '12/03/2019 09:40'. Patient presents for a complete exam. (chief complaint) Reason For Referral Reason For Referral No Information Plan Of Treatment Date Type Action Status Patient Education General Eyelid Hygiene completed History Of Present Illness Encounter Date Complaint History Of Prese nt Illness Patient presents for a complete exam. Patient presents for a complete exam in both eyes. States vision seems to be stable in both eyes since last exam. Reports has been doing warm compresses and using drops about 3x a day into both eyes. The right eye is stuck shut in the mornings and is very uncomfortable. Reports reading glasses are working well. Patient is here for an annual ocular health evaluation. Patient is here for an annual ocular health evaluation for both eyes. Patient has not noticed any change in her vision in either eye over the past year, her vision seems to be stable. Patient's eyes tend to get dry, more the right eye than the left eye, she does use artificial tears as needed. Patient just OTC readers to help her read things up close. The patient is here for a pseudophakic (IOL) exam The patient is here for a pseudophakic (IOL) exam. The patient reports dryness in both eyes for several years, she does not use any drops. Vision is stable in both eyes. Patient is here for a complete ocular health exam. Patient is here for a complete ocular health exam. Patient reports vision has remained stable since last visit. patient reports the right eye gets very dry and she nikhil to use a lot of artificial tears. Denies flashes of light and floaters. Dneies headaches and eye strain when focusing on objects. 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 Recommend using artificial tears 4 times a day and GenTeal Gel at bedtime in both eyes. Patient to call if no improvement. -Some brand names of artificial tears are Refresh, Systane, Bion Tears, Blink Tears, Thera Tears, Genteal. All are available over the counter without a prescription.Recommend warm compress 5 min daily followed by eyelid hygiene with ocusoft or baby shampoo. 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 There is no evidence of permanent changes to the cornea. Reviewed options for management including topical eye drops and [place] 3's daily. Recommend Systane Balance drops 2 to 3 times daily, warm compresses and ophthalmic gel at bedtime.Future options to manage condition include Restasis or Xiidra and punctal plugs (recommend medium size punctal plugs). 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 Apply warm compress to eye lids at least once daily. Ocusoft Lid Scrubs may be used daily to clean lid margins. Related to Unspecified blepharitis right upper eyelid H01.001 - Educated patient o n need for daily lid hygiene. Apply warm compress to eye lids at least once daily. Ocusoft Lid Scrubs may be used as needed to clean lid margins. 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 New glasses prescription given today. Related to Presbyopia H52.4 - Explained in [facility], diagnosis with patient. New glasses prescription given today. 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 There is no evidence of permanent changes to cornea. Reviewed options for management including topical eye drops and [place] 3's daily. Recommend Systane Balance drops 2 to 3 times daily, warm compresses and ophthalmic gel at bedtime. 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 New glasses prescription given today. 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 There is no evidence of permanent changes to cornea. Reviewed options for management including topical eye drops and [place] 3's daily. Recommend Systane Balance drops 2 to 3 times daily, warm compresses and ophthalmic gel at bedtime. 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 New glasses Rx given today. Related to Presbyopia 367.4; - Dry Eyes accounts for patient's complaint. There is no evidence of permanent changes to cornea. Explained no cure at this time. Reviewed options including topical treatments, punctual occlusion and Restasis. Patient elects to try topical treatment.Start Systane Balance drops daily. Related to Dry eye syndrome 375.15; S/P cataract removal with IOL V43.1 OU -doing well 1 month post-op OS and 2 months post op OD - Use medication(s) as explained. Dispense MRx. Related to S/P cataract removal with IOL V43.1 Dry eye syndrome 375.15 OU Relat ed to Dry eye syndrome 375.15 S/P cataract removal with IOL V43.1 OU -doing well 1 week post-op OS and 2 months post op OD - Continue post-op medications as prescribed. Patient instructed to call immediately if experiences decreasing vision, increasing pain or other concerns. Return to clinic in 3-4 weeks. Related to S/P cataract removal with IOL V43.1 Dry eye syndrome 375 .15 OU - Continue use of artificial tears Related to Dry eye syndrome 375.15 S/P cataract removal with IOL V43.1 OD -doing well 1 month PO. - Observe Related to S/P cataract removal with IOL V43.1 S/P cataract removal with IOL V43.1 OS -doing well 1 day post-op - Reviewed post-op instructions and hand out given. Use post-op medications as prescribed. Patient instructed to call immediately if experiences decreasing vision, increasing pain or other concerns. Return to clinic in one week. Related to S/P cataract removal with IOL V43.1 S/P cataract removal with IOL V43.1 OD -doing well 1 month PO. - Use medication(s) as explained. 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 Right eye is stable and has reached maximal benefit following surgery. 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 - Continue post-op medications as prescribed. Patient instructed to call immediately if experiences decreasing vision, increasing pain or other concerns. Return to clinic in 3-4 weeks. Related to S/P cataract removal with IOL V43.1 S/P cataract removal with IOL V43.1 OD -doing well 1 day post-op. Central corneal edema today. - Reviewed post-op instructions and hand out given. Use post-op medications as prescribed. Patient instructed to call immediately if experiences decreasing vision, increasing pain or other concerns. Return to clinic in one week. 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 B/A/R's reviewed. Patient understands and wishes to proceed with surgery. Order: Ascan/ OCB. If symptoms/ function impairment persist after left eye surgery, okay to proceed with Phaco w/ IOL right eye. TT plano OU Related to Nuclear sclerosis and cortical senile cataract 366.19 Nuclear sclerosis se nile cataract 366.16 OU - Cataracts accounts for patient's complaints. Counseled on options, surgery or spectacle change, explained surgery risks, benefits. Patient defers surgery and elects to change glasses first. Will re-evaluate cataract(s) on return visit. 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 New glasses Rx given today. Related to Presbyopia 367.4 Dry eye syndrome 375 .15 OU - Dry Eyes accounts for patient's complaint. There is no evidence of permanent changes to cornea. Explained no cure at this time. Reviewed options including topical treatments, punctual occlusion and Restasis. Patient elects to try topical treatment. Related to Dry eye syndrome 375.15 Presbyopia 367.4 Bot h eyes - Explained in detail, diagnosis with patient. New glasses Rx given today. Related to Presbyopia 367.4 Dry eye syndrome 375 .15 Both eyes - Dry Eyes accounts for patient's complaint. There is no evidence of permanent changes to cornea. Explained no cure at this time. Reviewed options including topical treatments, punctal plugs and laser punctal occlusion. Patient elects to try topical treatment. Related to Dry eye syndrome 375.15 Nuclear sclerosis se nile cataract 366.16 Both eyes - Cataracts accounts for patient's complaints. Counseled on options, surgery or spectacle change, explained surgery risks, benefits. Patient defers surgery and elects to change glasses first. Will re-evaluate cataract(s) on return visit. 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
== END 2024-06-05 09:43 | disposition home or self-care (01) ==
LOC: HO.LAB 09:42
PROVIDERS: PCP Internal Medicine; Visit Provider Internal Medicine
DX: Z13.89 Encounter for screening for other disorder (principal)

== ENCOUNTER 2024-06-12 10:20 | Outpatient (REF) | payer MEDICARE, OTHER, SELFPAY ==
[2024-06-12 11:00] LABS: Appearance Urine Turbid; Color Urine Yellow; Glucose Urine UA Negative (Negative); Leukocyte Esterase Urine Large (3+) (Negative); Nitrite Urine Negative (Negative); Specific Gravity - Urine 1.015 (1.005-1.025); UMIC TRIGGER UACC YES; Urine Blood Moderate (2+) (Negative); Urine Ketones Negative (Negative); Urine Protein 30 (1+) mg/dL (Neg-Trace)
[2024-06-12 11:14] LABS: Bacteria Urine 4+ (None Seen); UACC Culture Trigger YES; WBC Urine >50 /HPF (0-5)
--- OUTSIDE RECORDS SUMMARY | 2024-06-12 12:38 | XMS_ITS | Data Portability ---
Author Organization [place] - [facility], [facility] Address [address] [place] [address] Care Team Providers Care Surgical Nurse Name Role Phone FARIDA BREWER Referring Provider Assessment Encounter Date Assessment Date Assessment [...] training with LRAD and proper body mechanics. [email or web address] Not available 01/31/2024 10:53:44 02/02/2024 02/02/2024 Assessment: [...] training with LRAD and proper body mechanics. [email or web address] Not available 02/02/2024 16:50:00 02/07/2024 02/07/2024 Assessment: [...] X-rays reviewed in the office today on [facility] PACS: Weightbearing AP of both knees, lateral [...] of their questions today in the office. [employer] speech recognition programs director software was used to create portions of [...] extre mity No observ ation record ed. [facility] (Imaging) [address] [facility], [place], [address], 01/04/2024 18:19:27 01/11/20 24 01/11/2024 XR, knee, 3 view [email or web address]:/ [email or web address] ?Encry pted=s hAaTro YD8dLq bEUv6g %2BXZw aYqtaq 0bqfl% 2Fg9IQ a4ajBk vP9nXo QUaueC m3YtLR FvZlgJ JJ8mAn HZtai3 7x1761 AC0Kqa nSHVae hKiQtr MwF INTERFACE [facility] [address] [place] [address], [place], [address], 01/11/2024 14:14:12 01/11/20 24 01/11/2024 XR, knee, 3 view [email or web address]:/ [email or web address] ?Encry pted=s hAaTro YD8dLq bEUv6g %2BXZw aYqtaq 0bqfl% 2Fg9IQ a4ajBk vP9nXo QUaueC m3YtLR FvZlgJ JJ8mAn HZtai3 0u8347 AC0Kqa nSHVae hKiQtr MwF INTERFACE [facility] [address], [place], [address], 01/11/2024 14:14:14 Result Notes None recorded. Problems Name Problem SNOMED Code Status Onset Date Resolution Date Notes Provider Name and Address Organization Details Recorded Time Osteoarthri tis of left knee joint 8317373587948 09 Active 2023 Vinicio Alfaro MD [address], [place], [address], [facility] 15:33:12 Problem Notes None recorded. Procedures Surgical History Date Name Laterality Status Provider Name and Address Organization Details Recorded Time 48590 Therapeutic Exercise (1:1) completed Johanna Hurtado, PASS WORKER [address], [place], [address], [facility] 02/09/2024 01:34:11 26162: Manual therapy completed Johanna Hurtado PASS WORKER [address], [place], [address], [facility] 02/09/2024 01:34:12 27178 Therapeutic Exercise (1:1) completed Zafar Yoder DPT [address], [place], [address], [facility] 01/31/2024 12:29:58 28098: Manual therapy completed Zafar Yoder DPT [address], [place], [address], [facility] 02/02/2024 16:48:10 19661 Therapeutic Exercise (1:1) completed Zafar Yoder DPT [address], [place], [address], [facility] 01/30/2024 21:24:47 64144: Manual therapy completed Zafar Yoder DPT [address], [place], [address], [facility] 01/30/2024 21:24:47 18838 Therapeutic Exercise (1:1) completed Johanna Hurtado, PASS WORKER [address], [place], [address], [facility] 01/26/2024 10:18:22 71955: Manual therapy completed Johanna Hurtado, PASS WORKER [address], [place], [address], [facility] 01/26/2024 10:18:22 4 62759 Therapeutic Exercise (1:1) completed Zafar Yoder DPT [address], [place], [address], [facility] 01/22/2024 08:27:44 87046: Manual therapy completed Zafar Yoder DPT [address], [place], [address], [facility] 01/22/2024 08:27:44 93644 Therapeutic Exercise (1:1) completed Johanna Hurtado, PASS WORKER [address], [place], [address], [facility] 01/21/2024 22:27:04 4 24654: Manual therapy completed Johanna Hurtado, PASS WORKER [address], [place], [address], [facility] 01/21/2024 22:27:04 09696 Therapeutic Exercise (1:1) completed Johanna Hurtado, PASS WORKER [address], [place], [address], [facility] 01/17/2024 08:37:57 68132: Manual therapy completed Johanna Hurtado, PASS WORKER [address], [place], [address], [facility] 01/17/2024 08:37:57 02447 Therapeutic Exercise (1:1) completed Zafar Yoder DPT [address], [place], [address], [facility] 01/12/2024 19:47:12 4 21175: Manual therapy completed Zafar Yoder DPT [address], [place], [address], [facility] 01/12/2024 19:47:20 4 89915 Therapeutic Exercise (1:1) completed Zafar Yoder DPT [address], [place], [address], [facility] 01/10/2024 12:33:57 4 23644: Low complexity PT Eval completed Zafar Yoder DPT [address], [place], [address], [facility] 01/10/2024 12:34:02 4 G8420 BMI Normal, No Follow-Up Plan Required completed Zafar Yoder DPT [address] [facility], [place], [address], [facility] 01/10/2024 12:34:14 4 G8427 Current Medication Documented completed Zafar Yoder DPT [address] [facility], [place], [address], [facility] 01/10/2024 12:34:12 4 45478 Therapeutic Exercise (1:1) cancelled Zafar Yoder DPT [address], [place], [address], [facility] 01/03/2024 20:56:34 4 05992: Low complexity PT Eval cancelled Zafar Yoder DPT [address], [place], [address], [facility] 01/03/2024 20:56:34 4 G8420 BMI Normal, No Follow-Up Plan Required cancelled Zafar Yoder DPT [address], [place], [address], [facility] 01/03/2024 20:56:34 4 G8427 Current Medication Documented cancelled Zafar Yoder DPT [address] [facility], [place], [address], [facility] 01/03/2024 20:56:34 4 04432 Therapeutic Exercise (1:1) completed Zafar Yoder DPT [address], [place], [address], [facility] 12/01/2023 12:00:00 4 03400: Low complexity PT Eval completed Zafar Yoder DPT [address] [facility], [place], [address], [facility] 12/01/2023 12:00:09 4 G8420 BMI Normal, No Follow-Up Plan Required completed Zafar Yoder DPT [address] [facility], [place], [address], [facility] 12/01/2023 12:00:16 4 G8427 Current Medication Documented completed Zafar Yoder DPT [address] [facility], [place], [address], [facility] 12/01/2023 12:00:12 Imaging Results Imaging Date Name Status LastModified by Organiz ation Details LastModified Time 01/04/2024 US, duplex, venous, lower extremity completed [facility] (Imaging) [address] [facility], [place], [address], 01/04/2024 18:19:27 01/11/2024 XR, knee, 3 view completed INTER[facility] [address] [facility], [place], [address], 01/11/2024 14:14:12 01/11/2024 XR, knee, 3 view completed INTER[facility] [address], [place], [address], 01/11/2024 14:14:14 Procedure Notes None recorded. Medical [...] Updated DateTime 04/03/2024 151.13 cm 22.2 kg/m2 91493.35 g Ayo Armstrong [place] - [place] [facility] 04/03/2024 13:41:34 Social History None recorded. Functional Status None recorded. Mental Status None recorded. Family History Nothing Reported. Medical History Condition Response Kidney/Bladder Problems Y Cholesterol Y Bleeding Disorder Y Arthritis Y Blood Clot Y Hypertension Y Gynecological HistoryNo gynecological history recorded. Obstetrics History GPAL:G 0 P 0 0 0 0 Past Encounters Encounter ID Performer Location Encounter Start Date Encounter Closed Date Diagnosis/Indication Diagnosis SNOMED-CT Code Diagnosis ICD10 Code Diagnosis Note [id number] MD Pernell Banks 2nd floor [address] [place] [address] 06/29/2023 12:51:42 07/04/2023 10:11:51 Pain of left knee region 3467933389 74534 M25.562 Osteoarthr itis of left knee joint 6174737011 85007 M17.12 [id number] MD [facility] Banks 2nd floor [address] [place] [address] 08/23/2023 08:32:50 09/16/2023 20:44:51 Osteoarthritis of left knee joint 3218731828 23547 M17.12 [id number] MD Pernell Banks PT [address] [place] [address] 12/01/2023 09:07:56 12/01/2023 09:52:58 Osteoarthritis of knee 127318299 M17.12 [id number] Sudha Negro, TOWEL SORTER [facility] [address] [place] [address] 12/20/2023 11:08:02 01/14/2024 04:00:40 Osteoarthritis of left knee joint 9846541025 80306 M17.12 [id number] Vinicio Alfaro MD [facility] [address] [place] [address] 12/20/2023 13:15:04 01/11/2024 04:03:32 Osteoarthritis of left knee joint 1429193818 51716 M17.12 [id number] Vinicio Alfaro MD [facility] [address] [place] [address] 01/10/2024 08:16:45 01/10/2024 09:26:53 History of left total knee replacement 6925316997 238909 Z96.652 Z47.1 [id number] Zafar Yoder, DPT [facility] [address] [place] [address] 01/12/2024 14:58:53 01/12/2024 16:10:48 History of left total knee replacement 7774057537 705539 Z96.652 Z47.1 [id number] Eloise Kinsey PA-C [facility] [address] [place] [address] 01/11/2024 13:21:21 01/24/2024 09:47:28 Postoperative care 567097455 Z48.89 [id number] Mayo Sanchez, PT [facility] [address] [place] [address] 01/17/2024 09:01:13 01/17/2024 09:01:56 History of left total knee replacement 1007627646 055359 Z96.652 Z47.1 [id number] Mayo Sanchez, PT [facility] [address] [place] [address] 01/19/2024 10:42:24 01/19/2024 13:17:43 History of left total knee replacement 4792375246 215046 Z96.652 Z47.1 [id number] Zafar Yoder DPT [facility] [address] [place] [address] 01/22/2024 10:51:27 01/22/2024 11:36:06 History of left total knee replacement 5442924804 712454 Z96.652 Z47.1 [id number] Eloise Kinsey PA-C [facility] [address] [place] [address] 01/25/2024 13:11:31 02/15/2024 07:43:01 Postoperative care 840556647 Z48.89 [id number] Mayo Sanchez, PT [facility] [address] [place] [address] 01/26/2024 09:54:02 01/26/2024 10:24:34 History of left total knee replacement 5114219428 291812 Z96.652 Z47.1 [id number] Zafar Yoder DPT [facility] [address] [place] [address] 01/31/2024 09:18:39 01/31/2024 10:22:05 History of left total knee replacement 3246961600 141176 Z96.652 Z47.1 [id number] Zafar Yoder DPT [facility] [address] [place] [address] 02/02/2024 09:23:47 02/02/2024 10:36:37 History of left total knee replacement 7220313513 955881 Z96.652 Z47.1 [id number] Mayo Sanchez, PT [facility] [address] [place] [address] 02/07/2024 09:22:51 02/07/2024 11:25:19 History of left total knee replacement 9979172036 525709 Z96.652 Z47.1 [id number] Vinicio Alfaro MD [facility] [address] [place] [address] 04/03/2024 13:21:27 04/25/2024 12:17:36 History of left total knee replacement 8202531762 376390 Z96.652 Health Concerns Section Related Observation LastModified by Organization Detai ls LastModified Time None Recorded Concern Status LastModified by Organization Details LastModified Time None Recorded Advance Directives Directive None Recorded Payers Encounter Date Sequence Insurance Name Policy Number Policy Guevara Covered Member ID Guevara Member ID Guarantor Name 01/26/2024 2 [employer]AN - [employer] [id number] Sierra Vye [id number] Nanda Vye 01/26/2024 1 [place] [facility] Nanda Vye [id number] Nanda Vye 01/31/2024 2 COMM[employer]WE[employer] INDEMNITY PLAN - [employer] [id number] Sierra Vye [id number] Nanda Vye 01/31/2024 1 [place] [facility] Nanda Vye [id number] Nanda Vye 02/02/2024 2 COMM[employer]WE[employer] INDEMNITY PLAN - [employer] [id number] Sierra Vye [id number] Nanda Vye 02/02/2024 1 [place] [facility] Nanda Vye [id number] Nanda Vye 02/07/2024 2 [employer]WE[employer] INDEMNITY PLAN - [employer] [id number] Sierra Vye [id number] Nanda Vye 02/07/2024 1 [place] [facility] Nanda Vye [id number] Nanda Vye 04/03/2024 2 COMMONWE[employer] INDEMNITY PLAN - [employer] [id number] Sierra Vye [id number] Nanda Vye 04/03/2024 1 [place] [facility] Nanda Vye [id number] Nanda Vye Notes Date Note Type Note Provider Name and Address Organization Details Recorded Time 01/26/2024 text/html Pt reports she is able to do going down stairs reciprocally. Right knee feels good. Pt continues to use her walker due to pain in the left knee and lower back.Pains 0/10 in right knee at rest Johanna Hurtado, PASS WORKER [address], [place], [address], [facility] 01/29/2024 22:47:28 01/31/2024 text/html Pt reports she fell yesterday but did not hit her knee on the ground. Pt had muscle relaxor which helps for her spasm.Pains 0/10 at rest. TIMOTHY MurilloT [address], [place], [address], [facility] 01/31/2024 10:53:56 02/02/2024 text/html Pt reports she fell yesterday but did not hit her knee on the ground. Pt had muscle relaxor which helps for her spasm.02/01. Pt states no pain and no spasm in her knee today. Pains 0/10 at rest. TIMOTHY MurilloT [address], [place], [address], [facility] 02/02/2024 16:50:32 02/07/2024 text/html Pt reports has been doing well. Still has some swelling and bruising from fall last week.Pain is 0/10 at rest. Johanna Hurtado, PASS WORKER [address], [place], [address], [facility] 02/09/2024 01:39:38 OBGyn Episode No OBEpisode recorded.
--- OUTSIDE RECORDS SUMMARY | 2024-06-12 12:38 | XMS_ITS | Data Portability ---
Author Organization [facility], ER [facility] Address [address] [facility]. [place] [address] Care Team Providers Care Manager Banking Name Role Phone MATTHIAS INFANTE Primary Care [...] 550 mg tablet [phone] asaavedra 9 [facility] #[id number], [address] [place], [place], [phone], 16:29:23 Xifaxan 550 mg tablet [phone] asaavedra 9 [facility] #[id number], [address] [facility] [place], [place], [phone], 1 16:29:23 Xifaxan 550 mg tablet [phone] asaavedra 9 [facility] #[id number], [address] [place], [place], [phone], 16:29:23 Patient TargetsNo targets recorded. Patient Instructions Encounter Date Encounter Id Patient Instructions Last Modified By Organization Details Last Modified Time 06/17/2015 [id number] specimen collection & handling* [email or web address] Not available 08/28/2015 13:33:07 diet - low fodmap [email or web address] Not available 06/17/2015 14:42:21 07/04/2016 [id number] irritable bowel syndrome: care instructions [email or web address] Not available 07/04/2016 16:38:48 Xifaxin 550 mg 3x/day x 14 days. continue once daily probiotics. follow-up as needed [email or web address] Not available 07/04/2016 16:34:51 04/25/2018 [id number] Drink at least 8 cups WATER daily. [...] necessary. [email or web address] Not available 04/25/2018 10:41:12 12/09/2020 [id number] Pt can continue to take probiotic Pt will followup as necessary [email or web address] Not available 12/10/2020 11:44:23 Reason for Referral None Reported. Results Created Date Observation Date Name Description Value Unit Range Abnormal Flag Note LastModifiedBy Organization Detail LastModifiedTime Result Notes None recorded. Problems Name Problem SNOMED Code Status Onset Date Resolution Date Notes Provider Name and Address Organization Details Recorded Time Abdominal bloating 254749169 Active 2018 Elisa WatsonAnastasiya Martinez CNP [address] [place], [address] , [facility] 9 10:51:00 Altered bowel function 30867522 Active change in bowel habits [facility] [place] 6 11:55:26 Polyp of colon 87534397 Active OLIVER CELESTINA [facility] 6 11:55:26 Flatulenc e/wind Active bloatin g/gas OLIVERNatty OSCAR [facility] 6 14:42:21 Screening for malignant neoplasm of colon Active OLIVER CELESTINA [facility] 6 14:42:21 Constipat ion 89267385 [facility] 6 14:42:21 Diverticu lar disease of colon 749241422 Active OLIVER CELESTINA [facility] 6 11:55:26 Problem Notes None recorded. Procedures Surgical History Date Name Laterality Status Provider Name and Address Organization Details Recorded Time 06/30/19 11 Colonoscopy completed Elisa WatsonAnastasiya Martinez CNP [address] [place], [address], [facility] 04/24/2018 21:28:13 Imaging Results None recorded. [...] Updated DateTime 1 152.4 cm 23.7 kg/m2 37071.4 g 86 /min 93 % 93 % 97.3 [degF] 132 mm[Hg] 78 mm[Hg] Frank Gonzalez [facility] 1 16:26:23 Date Recorded Body weight Oxygen saturation Oxygen saturation in Arterial blood by Pulse oximetry Heart rate Body mass index (BMI) Body height Systolic blood pressure Diastolic blood pressure Provider Name and Address Organization Details Last Updated DateTime 6 72738.8 58598 g 96 % 96 % 58 /min 23.7 kg/m2 152.4 cm 126 mm[Hg] 70 mm[Hg] ANITA HUGHES CMA [facility] 6 11:48:40 Date Recorded Body height Body weight Body mass index (BMI) Heart rate Oxygen saturation Oxygen saturation in Arterial blood by Pulse oximetry Systolic blood pressure Diastolic blood pressure Provider Name and Address Organization Details Last Updated DateTime 7 152.4 cm 30803.6 1 g 24.3 kg/m2 71 /min 96 % 96 % 136 mm[Hg] 72 mm[Hg] ANITA HUGHES CMA [facility] 7 15:54:53 Date Recorded Body height Body mass index (BMI) Body weight Heart rate Oxygen saturation Oxygen saturation in Arterial blood by Pulse oximetry Systolic blood pressure Diastolic blood pressure Provider Name and Address Organization Details Last Updated DateTime 9 152.4 cm 24.2 kg/m2 33274.7 4 g 66 /min 96 % 96 % 140 mm[Hg] 80 mm[Hg] Maryan Jackson [facility] 9 10:20:47 Social History Question Answer Notes LastModified by Organizat ion Details LastModified Time Tobacco Smoking Status Never Smoker Rhina Steve dacosta [facility] 06/16/2015 18:19:44 Do You Have [...] Or The Highest Degree You Have Received? [id number] Information not available 12/09/2020 How Many Days In The Past Year Have You Had A Heavy Drinking Consumption (4+ Female, 5+ Male)? 0 Information no t available 07/04/2016 How Many Years Have You Used Illicit Or Recreational Drugs? 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 Yes Information not available 12/09/2020 What Was [...] or stomach cancer. Medical History Condition Response Osteoporosis/Osteopenia Y DVT Deep Venous Thrombosis Y Arthritis Y Colon Polyps Y Diverticulitis Y Hypertension Y Kidney Disease Y Gynecological HistoryNo gynecological history recorded. Obstetrics History GPAL:G 0 P 0 0 0 0 Immunizations Vaccine Type Date Status Note Provider Name and Address Organization Details Recorded Time COVID-19 PS Non-US Vaccine (EpiVacCorona) 1 completed Frank dacosta, [facility] 12/09/2020 16:27:22 Influenza A monovalent (H5N1), ADJUVANTED-2012 6 completed KEILY SHEPHERD, [facility] 07/04/2016 16:00:22 Pneumococcal conjugate PCV 13 4 completed KEILY SHEPHERD, [facility] 07/04/2016 16:00:29 zoster live 5 completed KEILY SHEPHERD, [facility] 07/04/2016 16:00:36 Hep C 0 completed KEILY SHEPHERD, [facility] 07/04/2016 16:00:57 Past Encounters Encounter ID Performer Location Encounter Start Date Encounter Closed Date Diagnosis/Indication Diagnosis SNOMED-CT Code Diagnosis ICD10 Code Diagnosis Note [id number] [facility] [address] [facility] [place] [address] 06/17/2015 11:15:14 06/18/2015 12:40:43 Flatulence/wind 002229288 R14.3 Worsening flatus and gas pain x 3 months. Previous antibiotic treatment with Doxycyclin e in 05/01 was effective in managing gi symptoms x > 6 months. PLAN: Low FODMAP diet. Xifaxin 550 mg TID x 14 days trial for possible SIBO Screening for malignant neoplasm of colon 617745819 Z12.11 Previous colonoscop y 2010 and previous colonoscop y screenings prior to that. Discussed colon cancer screening options with patient today and she would like to go ahead with cologard testing. PLAN: colonoscop y due 06/2015. Cologard- patient is unable to be off Coumadin at this time (d/t recent dvt). Constipation 30253776 K5 9.00 Managed with daily magnesium. [id number] OLIVER OSCAR [facility] [address] [place] [address] 07/04/2016 15:49:30 07/04/2016 16:39:00 Constipation 11793693 K59.00 Managed with daily magnesium and prn Miralax. Likely IBS-C with hx significan t gas/bloati ng, discomfort abdomen, and constipati on.PLAN; continue current constipati on management Flatulence/wind 12489595 5 R14.3 Worsening flatus and gas pain x several months. Previous antibiotic treatment with Doxycyclin e in 05/01 was effective in managing gi symptoms x > 6 months. Xifaxin 06/30 very effective in managing lower gi complaints .PLAN: continue probiotics daily. Xifaxin 550 mg TID x 14 days for suspected SIBO Irritable bowel syndrome 32091825 K58.9 Likely IBS-C with hx significan t gas/bloati ng, discomfort abdomen, and constipati on. [id number] Elisa Martinez CNP [facility] [address] [place] [address] 04/25/2018 09:57:41 04/25/2018 10:46:44 Constipation 37121227 K59.00 Constipati on is controlled with regimen of Miralax, taken most days. Pt will re-employ MgOxide which has been helpful in the past. History of polyp of colon 950896410 Z86.010 Cologuard 06/2015 - Negative. Colonoscop y 06/29/2010, Dr. King noted two 4-6 mm sessile polyps in ascending colon (tubular adenoma). Multiple small & large-mout h diverticul a in sigmoid colon. Moderate non-bleedi ng internal hemorrhoid s. 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 Anticoagulant therapy 18 0290014 Z79.01 Pt has taken Warfarin since ~03/2015. Arthritis 5043891 M19.90 Pt has taken Hydrocodon e once daily for a long time for pain a/w arthritis. [id number] Elisa Martinez CNP [facility] [address] [facility] [place] [address] 12/09/2020 16:20:01 12/09/2020 17:26:57 Constipation 68878245 K59.00 Constipati on is controlled with regimen of Miralax, ~once weekly and daily mg supplement .Pt has found Viome probiotic to be helpful, as well. Osteoarthritis 574482747 M19.90 Pt takes Hydrocodon e once to twice daily Anticoagulant therapy 18 0171392 Z79.01 Pt has taken Warfarin since ~03/2015. Factor V L eiden mutation 785211883 D68.51 History of adenomatous polyp of colon 094495000 Z86.010 Colonoscop y 06/29/2010, Dr King - [...] ID Guarantor Name 06/17/2015 1 MEDICARE B-[place]: [employer] Nanda Vye [id number] Nanda ye 06/17/2015 2 UNICARE - GIC (INDEMNITY) [id number] [facility] [id number] Nanda 07/04/2016 1 MEDICARE B-[place]: [employer] Nanda Vye [id number] Nanda ye 07/04/2016 2 UNICARE - GIC (INDEMNITY) [id number] Sierra Vye [id number] Nanda ye 04/25/2018 1 MEDICARE B-[place]: [employer] Nanda Vye [id number] Nanda Vye 04/25/2018 2 UNICARE - [place]IC (INDEMNITY) [id number] Sierra Vye [id number] Nanda ye 12/09/2020 1 MEDICARE B-[place]: [employer] Nanda Vye [id number] 6 Nanda Vye 12/09/2020 2 UNICARE - GIC (INDEMNITY) [id number] Sierra Maher [id number] Nanda Maher Notes Date Note Type Note [...] antibiotics which was helpful. ANDIE Currie - [facility] 06/17/2015 14:43:03 7 text/html GI [...] with Magnesium and prn miralax OLIVER dacosta [facility] 07/04/2016 16:40:35 9 text/html * [...] the country, or hospitalizations. Elisa Martinez, GENNA [address] [place], [address], [facility] - [facility] 04/25/2018 10:52:48 1 text/html * [...] weight loss; no fever Elisa Martinez, GENNA [address] [place], [address], [facility] - [facility] 12/10/2020 11:45:33 OBGyn Episode No OBEpisode recorded.
--- OUTSIDE RECORDS SUMMARY | 2024-06-12 12:38 | XMS_ITS | Encounter Summary ---
Author Organization [facility] Address [address] [place] [address] Care Team Providers Care Dye Operator Name Role Phone Post, Jeremias Meraz MD Primary Care Provider Encounter Details Date Type Department Care Team (Late st Contact Info) Description 03/06/2023 Scanned Document [facility] Department of Internal Medicine & Nephrology [address] [place] [address] Post, Jeremias Meraz MD [address] [facility] [address] [place] [address] Social History Tobacco Use Types Packs/Day Years Used Date Smoking Tobacco: Never Assessed Sex and Gender Information Value Date Recorded Sex Assigned at Not on file Gender Identity Not on file Sexual Orientation Not on file documented as of this encounter Plan of Treatment Not on file documented as of this encounter Visit Diagnoses Not on filedocumented in this encounter Care Teams Dye Operator Relationship Specialty Start Date End Date Post, Jeremias Meraz MD [address] [facility] [address] [place] [address] PCP - General 04/16/23 documented as of this encounter
--- OUTSIDE RECORDS SUMMARY | 2024-06-12 12:38 | XMS_ITS | Clinical Summary ---
Author Organization [facility] Address [address] [place] [address] Care Team Providers Care Medical Case Worker Name Role Phone Unavailable Primary Care Provider [...]
--- OUTSIDE RECORDS SUMMARY | 2024-06-12 12:38 | XMS_ITS | Continuity of Care Document ---
Author Organization [facility] Address [address] [address] [place] [address] Phone Care Team Providers Care Drafting Clerk Name Role Phone Shirley Alcocer OD Unavailable [...] Date Provider Providers Copied on Encounter [facility], [address] [address], [place], [place], [id number], tel:[phone] Nasim Patient presents for a complete exam. (chief complaint) Dry eye syndrome of bilateral lacrimal glands H04.123Presby opia H52.4ABMD / Epithelial corneal dystrophy H18.52Pseudop hakia Z96.1 0 Carlyn Watson. [address], [address], [place], [place], [address], [place]. tel:[phone] Referring Provider: Shirley Watson, [address], [place], [address] . tel:[phone] [facility], [address] [address], [place], [place], [address], tel:[phone] Nasim Patient is here for an annual ocular health evaluation. (chief complaint) Unspecified blepharitis right upper eyelid H01.001Dry eye syndrome of bilateral lacrimal glands H04.123Presen ce of intraocular lens Z96.1 0 Donna Cruz. [address], [place], [place], [address], [place]. tel:[phone] Referring Provider: Anthony Meraz, [address], [place], [address] . tel:[phone] [facility], [address] [address], [place], [place], [address], [phone] [facility] The patient is here for a pseudophakic (IOL) exam (chief complaint) Unspecified blepharitis right upper eyelid H01.700Dxqsqa phakia Z96.1Presbyop ia H52.4 Sep-2 6-201 8 Ritalthea Cruz. [address], [place], [place], [address], [place]. tel:[phone] Referring Provider: Anthony Meraz, [address], [place], [address] . tel:[phone] [facility], [address] [address], [place], [place], [address], [phone] [facility] Patient is here for a complete ocular health exam. (chief complaint) Dry eye syndrome of bilateral lacrimal glands H04.123Pseudo phakia Z96.1Presbyop ia H52.4 Nov-3 1- 7 Donna Cruz. [address], [place], [address], [place]. tel:[phone] Referring Provider: Anthony Meraz, [address], [place], [address] . tel:[phone] [facility], [address] [address], [place], [place], [address], [place] tel:[phone] [facility] Patient is here for a pseudophakia exam, both eyes. (chief complaint) Pseudophakia Z96.1Dry eye syndrome of bilateral lacrimal glands H04.123Presby opia H52.4 Nov-1 0-201 6 Donna Cruz. [address], [place], [place], [address], [place]. tel:[phone] Referring Provider: Anthony Meraz, [address], [place], [address] . tel:[phone] [facility], [address] [address], [place], [place], [address], tel:[phone] [facility] The patient is here for a pseudophakic (IOL) exam (chief complaint) Pseudophakia V43.1Dry eye syndrome 375.15Presbyo willie 367.4 Donna Cruz. [address], [place], [place], [address], [place]. tel:[phone] Referring Provider: Armaan Shah, [address], [place], [address] . tel:[phone] [facility], [address] [address], [place], [place], [address], tel:[phone] [facility] No Information Riley Crook. [address], [place], [place], [address], [place]. tel:[phone] Referring Provider: Armaan Shah, [address], [place], [address] . 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 tel:[phone] [facility], [address] [address], [place], [place], [address], [place] tel:[phone] [facility] The patient is here for a 1 week post-op (chief complaint) Lens replaced by prosthesisDry Eye Syndrome Baldo Vazquez. [address], [address], [place], [place], [address]. tel:[phone] Referring Provider: Armaan Shah, [address], [place], [address] . tel:[phone] [facility], [address] [address], [place], [place], [address], [place] tel:[phone] [facility] Patient here for a 1 day post-op s/p cataract surgery. (chief complaint) Lens replaced by prosthesisDry Eye Syndrome Mar-0 3 Jamesher Crook. [address], [place], [place], [address], [place]. tel:[phone] Referring Provider: Armaan Shah, [address], [place], [address] . tel:[phone] [facility], [address] [address], [place], [place], [address], [place] tel:[phone] [facility] No Information 3 Riley Crook. [address], [place], [place], [address], [place]. tel:[phone] Referring Provider: Armaan Shah, [address], [place], [address] . tel:[phone] [facility], [address] [address], [place], [place], [address], [place] tel:[phone] [facility] No Information 3 Riley Crook. [address], [place], [place], [address], [place]. tel:[phone] Referring Provider: Armaan Shah, [address], [place], [address] . tel:[phone] [facility], [address] [address], [place], [place], [address], [place] tel:[phone] [facility] The patient is here for a 1 month post-op (chief complaint) Lens replaced by prosthesisOth er and combined forms of senile cataract Feb- 3 No Information Referring Provider: Armaan Shah, [address], [place], [address] . tel:[phone] [facility], [address] [address], [place], [place], [address], tel: [phone] [facility] The patient is here for a 1 week post-op for the right (chief complaint)She reports wants to have left eye done (chief complaint) Lens replaced by prosthesisOth er and combined forms of senile cataract Jan- 3 No Information Referring Provider: Armaan Shah, [address], [place], [address] . 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 tel:[phone] [facility], [address] [address], [place], [place], [address], tel: [phone] [facility] No Information Jan- 3 Riley Crook. [address], [place], [place], [address], [place]. [phone] Referring Provider: Armaan Shah, [address], [place], [address] . tel:[phone] [facility], [address] [address], [place], [place], [address], tel:[phone] [facility] No Information Jan- 3 Riley Crook. [address], [place], [place], [address], [place]. tel:[phone] Referring Provider: Armaan Shah, [address], [place], [address] . tel:[phone] [facility], [address] [address], [place], [place], [address], [place] [phone] [facility] The patient is here for a cataract evaluation. (chief complaint) Other and combined forms of senile cataract Dec-0 3 Riley Crook. [address], [place], [place], [address], [place]. [phone] Referring Provider: Anthony Meraz, [facility] [address] [facility], [place], [address] . tel:[phone] [facility], [address] [address], [place], [place], [address], [place] [phone] [facility] The patient is here for an ocular health exam (chief complaint) Nuclear sclerosis senile cataractDry Eye SyndromePresb yopia 2 Donna Cruz. [address], [place], [address], [place]. tel:[phone] Referring Provider: Anthony Meraz, [facility] [address], [place], [address] . tel:[phone] [facility], [address] [address], [place], [place], [address], [place] tel:[phone] [facility] The patient is here for an ocular health exam. (chief complaint) SENILE NUCLEAR CATARACTTEAR FILM INSUFFIC NOSPRESBYOPIA Jose R- 1 Donna Cruz. [facility] [address] [place] [address], [id number], [place]. tel:[phone] Referring Provider: Anthony Meraz, [address] [facility] [address], [place], [address] . tel:[phone] Family History Family Member Type Diagnosis Age At Onset Mother Problem (finding) cataract Mother Problem (finding) degenerative disorder o f macula Payers Payer name Insurance type Covered libertarian ID Hamzah barber(s) Medicare [facility] [id number] [facility] [id number] Social History Type Description Quantity Date Captured [...] No Information Instructions Date Instruction Additional Infor rosangelageovanna - Counseled patient regarding findings today. 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 There is no evidence of permanent changes to the cornea. Reviewed options for management including topical eye drops and [place] 3's daily. Recommend Systane Balance drops 2 [...] right upper eyelid H01.001 - Explained in detai l, diagnosis with patient. New glasses prescription given today. 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 There is no evidence of permanent changes to cornea. Reviewed options for management including topical eye drops and [place] 3's daily. Recommend Systane Balance drops 2 to 3 times daily, warm compresses and ophthalmic gel at bedtime. 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 New glasses prescription given today. 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 There is no evidence of permanent changes to cornea. Reviewed options for management including topical eye drops and [place] 3's daily. Recommend Systane Balance drops 2 to 3 times daily, warm compresses and ophthalmic gel at bedtime. 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 There is no evidence of permanent changes to cornea. Explained no cure at this time. Reviewed options including topical treatments, punctual occlusion and Restasis. Patient elects to try topical treatment.Start Systane Balance drops daily. Related to Dry eye syndrome 375.15; - Explained in detai l, diagnosis with patient. New glasses Rx given today. Related to Presbyopia 367.4; - Stable, OU. Related to Pseud ophakia [...] Left Eye as per previous counseling by cook sauce.--TT/plano Related to Nuclear sclerosis and cortical senile [...]
== END 2024-06-12 10:21 | disposition home or self-care (01) ==
LOC: HO.LAB 10:20
PROVIDERS: PCP Internal Medicine; Visit Provider Internal Medicine
DX: R30.0 Dysuria (principal)
CPT/HCPCS: 81001; 81003; 87086; 87088; 87186

== ENCOUNTER 2024-07-29 08:50 | Outpatient (AMB) | payer MEDICARE, OTHER, SELFPAY ==
--- NOTE | 2024-07-29 08:59 | A.OFFVIS_ITS ---
Intake Visit Reasons: recurrent UTI Intake Note: New patient presents today for initial visit for recurrent UTI Urology Medication:none Blood Thinner:Apixaban Antibiotic Allergies:none PVR:0ml Allergies No Known Allergies Allergy (Verified 07/29/24 09:00) HPI Comments Details: Nanda is an 88-year-old female who is here for evaluation due to UTI. The patient had a positive UTI dated 06/12/2024-- E coli ESBL. She states she has a long-standing history of UTIs dating back to her 50s, with a particularly resistant episode occurring in May. This UTI was resistant to most antibiotics except nitrofurantoin and ertapenem. Her history includes a prolapsed bladder, managed in the past with a pessary, which is no longer utilized due to discomfort and fitting difficulties. While she does not currently report symptoms, her previous management has included antibiotic treatments and consultations with urology. The resistant nature of the current bacterial strain requires further evaluation and management. Management options were reviewed, including the necessity of further diagnostics, such as a kidney ultrasound and possible cystoscopy during follow-up, to assess bladder conditions and rule out contributing factors of infection. We explored the role of probiotics and D-mannose in managing recurrent infections, considering their potential benefits in GI laura maintenance when frequent antibiotics are used. Urinary Symptoms Review - History of recurrent urinary tract infections since the age of 50. - Antibiotic-resistant UTI in May, resistant to all except nitrofurantoin and ertapenem. - History of a prolapsed bladder contributing to urinary issues, especially during UTI incidents. - Pessary used previously for bladder prolapse, now discontinued due to fitting issues. [facility] Surgical History History of left knee replacement History of cataract surgery Family History Mother No problems noted. Father No problems noted. Son No problems noted. Son No problems noted. Daughter No problems noted. Social History Housing: Apartment Alcohol intake: current Alcohol intake frequency: a few times a month Comment: ocnce a week 1 glass Patient Tobacco Use Status: Never used Tobacco Tobacco use type: Cigarette e-Cigarette/Vaping Use: Never Used Second Hand Smoke Exposure: No service: No Current occupational status: retired Current occupation: RETIRED Current occupational exposures/hazards: No Cognitive needs: Yes (Walker) Hearing needs: No Vision needs: Yes Review of Systems Const All systems reviewed & are unremarkable except as noted in HPI and below Reports no additional complaints Eyes Reports no additional complaints ENT Reports no additional complaints Card Reports no additional complaints Resp Reports no additional complaints GI Reports no additional complaints Reports as per HPI Musc Reports no additional complaints Skin/Breast Reports system reviewed and no additional complaints, except as documented Neuro Reports no additional complaints Psych Reports no additional complaints Endo Reports no additional complaints Yassine/Lymph Reports no additional complaints Aller/Immun Reports no additional complaints Physical Exam Const General: cooperative, healthy appearing and no acute distress Orientation/consciousness: patient oriented x3 HEENT Head: Yes normal to inspection, Yes normocephalic and Yes atraumatic Eyes Conjunctivae: conjunctivae normal Neck Neck: Yes normal visual inspection and Yes trachea midline Chest Chest palpation & inspection: normal inspection of the chest Resp Effort & Inspection: normal respiratory effort GI Inspection: Yes normal to inspection Neuro General: patient oriented x3 Psych Appearance: grossly normal Results Reviewed Results Reviewed: Collected: 06/12/24-K Status: COMP Req#: [id number] Received: 06/12/249 Source: [facility] Sp Desc: Clean Cat Subm Dr: Scarlet Washington MD Ordered: Urine Culture Procedure Result Verified Urine Culture Final 06/15/24 Organism 1 Escherichia coli Quant > 100,000 cfu/mL ESBL Note: NOTE: Extended-Spectrum Beta-Lactamase enzyme present E coli M.I.C. RX --------- --- Ampicillin >=32 R Cefazolin (Urine) >=32 R Cefepime 16 R Ceftriaxone >=64 R Ciprofloxacin >=4 R Ertapenem <=0.12 S Gentamicin >=16 R Nitrofurantoin <=16 S Trimethoprim/Sulfamethoxazole >=320 R Assessment & Plan Assessment & Plan (1) Recurrent UTI: Code(s): N39.0 - Urinary tract infection, site not specified Category: Medical (2) ESBL (extended spectrum beta-lactamase) producing bacteria infection: Code(s): A49.9 - Bacterial infection, unspecified; Z16.12 - Extended spectrum beta lactamase (ESBL) resistance Category: Medical (3) Pelvic prolapse: Code(s): N81.9 - Female genital prolapse, unspecified Category: Medical Plan Plan - Schedule and attend a kidney ultrasound to evaluate the bladder condition. - Consider using Align probiotics to maintain gut health. - Cont using D-mannose as a supportive measure for UTI prevention. - Await contact regarding a referral to an infectious disease specialist for further evaluation. Orders: Orders US retroperitoneal comp Today N39.0 - Urinary tract infection, site not specified, N81.9 - Female genital prolapse, unspecified Referrals Infectious Disease Referral A49.9 - Bacterial infection, unspecified, Z16.12 - Extended spectrum beta lactamase (ESBL) resistance Medications: New Bifidobacterium infantis (Align (B.infantis)) 4 mg PO DAILY 90 caps 2RF Patient Instructions: The patient had an opportunity to ask questions regarding treatment plan. The patient expressed understanding and agreement with the above treatment plan. The patient is aware they should contact our office by phone for worsening of their current condition or the appearance of new symptoms. Compliance is encouraged with any medications and followup testing that is ordered. It is a privilege to be allowed the opportunity to participate in the urologic care of your patient. If you have any questions or concerns regarding treatment for the above conditions please do not hesitate to contact me. The office telephone contact is [phone]. This note is constructed in part using voice recognition software. While every effort has been made to ensure accuracy public health microbiologist errors may have been included. Yours sincerely, Sosa Beckett MD Scribe Plan - Not visible on output: Patient was informed and verbally consented to the use of an ambient scribe for clinic note documentation during this visit. Coding Level of Care Code New Pt Level 4 (12819) Diagnoses Recurrent UTI N39.0 ESBL (extended spectrum beta-lactamase) producing bacteria infection A49.9; Z16.12 Pelvic prolapse N81.9
--- OUTSIDE RECORDS SUMMARY | 2024-07-29 09:38 | XMS_ITS ---
Author Name [facility] Organization Unknown Care Team Organization Name Specialty Phone Email Start Date End [facility] Post Primary Care 05/07/2023
--- OUTSIDE RECORDS SUMMARY | 2024-07-29 09:38 | XMS_ITS | Clinical Summary ---
Author Organization [facility] Address [address] [place] [address] Care Team Providers Care Cns Name Role Phone Unavailable Primary Care Provider [...]
--- OUTSIDE RECORDS SUMMARY | 2024-07-29 09:38 | XMS_ITS | Encounter Summary ---
Author Organization [facility] Address [address] [place] [address] Care Team Providers Care Department Chairperson Name Role Phone Post, Jeremias Meraz MD Primary Care Provider Encounter Details Date Type Department Care Team (Late st Contact Info) Description 03/06/2023 Scanned Document [facility] of Internal Medicine & Nephrology [address] [place] [address] Post, Jeremias Meraz MD [address] [facility] [address] [place] [address] Social History Tobacco Use Types Packs/Day Years Used Date Smoking Tobacco: Never Assessed Sex and Gender Information Value Date Recorded Sex Assigned at Not on file Gender Identity Not on file Sexual Orientation Not on file documented as of this encounter Plan of Treatment Not on file documented as of this encounter Visit Diagnoses Not on filedocumented in this encounter Care Teams Department Chairperson Relationship Specialty Start Date End Date Post, Jeremias Meraz MD [address] [facility] [address] [place] [address] PCP - General 04/16/23 documented as of this encounter
--- OUTSIDE RECORDS SUMMARY | 2024-07-29 09:38 | XMS_ITS | Data Portability ---
Author Organization [facility], ER [facility] Regional Address [address] [place] [address] Care Team Providers Care Ornamental Painter Name Role Phone MATTHIAS INFANTE Primary Care Provider [phone] ISIAH CARLOS Primary Care Provider Assessment Encounter [...] 550 mg tablet [id number] asaavedra 9 [facility] #[id number], [address], [place], [phone], 16:29:23 Xifaxan 550 mg tablet [id number] asaavedra 9 [facility] #75452, [address] [facility] [place], [phone], 1 16:29:23 Xifaxan 550 mg tablet [id number] [id number] asaavedra 9 [facility] #67252, [address] [place], [place], [phone], 16:29:23 Patient TargetsNo targets recorded. Patient Instructions Encounter Date Encounter Id Patient Instructions Last Modified By Organization Details Last Modified Time 06/17/2015 [id number] specimen collection & handling* [email or web address] Not available 08/28/2015 13:33:07 diet - low fodmap lcrozier Not available 06/17/2015 14:42:21 07/04/2016 [id number] irritable bowel syndrome: care instructions [email or web address] Not available 07/04/2016 16:38:48 Xifaxin 550 mg 3x/day x 14 days. continue once daily probiotics. follow-up as needed lcrozier Not available 07/04/2016 16:34:51 04/25/2018 [id number] Drink at least 8 cups WATER daily. [...] necessary. [email or web address] Not available 04/25/2018 10:41:12 12/09/2020 [id number] Pt can continue to take probiotic Pt will followup as necessary [email or web address] Not available 12/10/2020 11:44:23 Reason for Referral None Reported. Results Created Date Observation Date Name Description Value Unit Range Abnormal Flag Note LastModifiedBy Organization Detail LastModifiedTime Result Notes None recorded. Problems Name Problem SNOMED Code Status Onset Date Resolution Date Notes Provider Name and Address Organization Details Recorded Time Abdominal bloating 872844537 Active 2018 Elisa WatsonAnastasiya Martinez CNP [address] [place], [address] , [facility] 9 10:51:00 Altered bowel function 74308781 Active change in bowel habits [facility] [place] 6 11:55:26 Polyp of colon 26324413 Active OLIVER CELESTINA [facility] 6 11:55:26 Flatulenc e/wind Active bloatin g/gas OLIVERNatty OSCAR [facility] 6 14:42:21 Screening for malignant neoplasm of colon Active OLIVER CELESTINA [facility] 6 14:42:21 Constipat ion 32821475 [facility] 14:42:21 Diverticu lar disease of colon 405241638 Active OLIVER CELESTINA [facility] 6 11:55:26 Problem Notes None recorded. Procedures Surgical History Date Name Laterality Status Provider Name and Address Organization Details Recorded Time 06/30/19 11 Colonoscopy completed Elisa WatsonAnastasiya Martinez CNP [address] [place], [address], [facility] 04/24/2018 21:28:13 Imaging Results None recorded. [...] Updated DateTime 1 152.4 cm 23.7 kg/m2 99917.4 g 86 /min 93 % 93 % 97.3 [degF] 132 mm[Hg] 78 mm[Hg] Frank Gonzalez Formerly named [facility] 1 16:26:23 Date Recorded Body weight Oxygen saturation Oxygen saturation in Arterial blood by Pulse oximetry Heart rate Body mass index (BMI) Body height Systolic blood pressure Diastolic blood pressure Provider Name and Address Organization Details Last Updated DateTime 6 87116.8 50943 g 96 % 96 % 58 /min 23.7 kg/m2 152.4 cm 126 mm[Hg] 70 mm[Hg] ANITA HUGHES CMA Formerly named [facility] 6 11:48:40 Date Recorded Body height Body weight Body mass index (BMI) Heart rate Oxygen saturation Oxygen saturation in Arterial blood by Pulse oximetry Systolic blood pressure Diastolic blood pressure Provider Name and Address Organization Details Last Updated DateTime 7 152.4 cm 58206.6 1 g 24.3 kg/m2 71 /min 96 % 96 % 136 mm[Hg] 72 mm[Hg] ANITA HUGHES CMA Formerly named [facility] 7 15:54:53 Date Recorded Body height Body mass index (BMI) Body weight Heart rate Oxygen saturation Oxygen saturation in Arterial blood by Pulse oximetry Systolic blood pressure Diastolic blood pressure Provider Name and Address Organization Details Last Updated DateTime 9 152.4 cm 24.2 kg/m2 55852.7 4 g 66 /min 96 % 96 % 140 mm[Hg] 80 mm[Hg] Maryan Jackson [facility] 9 10:20:47 Social History Question Answer Notes LastModified by Organizat ion Details LastModified Time Tobacco Smoking Status Never Smoker Rhina Steve dacosta [facility] 06/16/2015 18:19:44 Do You Have [...] Or The Highest Degree You Have Received? [id number] Information not available 12/09/2020 How Many Days In The Past Year Have You Had A Heavy Drinking Consumption (4+ Female, 5+ Male)? 0 Information no t available 07/04/2016 How Many Years Have You Used Illicit Or Recreational Drugs? 0 Information not available 07/04/2016 Marital Status tania Informatio n not available 06/16/2015 Do You Have A Medical Power Of Console Assembler? Yes Information not available 12/09/2020 What Was [...] DVT Deep Venous Thrombosis Y Arthritis Y Kidney Disease Y Osteoporosis/Osteopenia Y Colon Polyps Y Diverticulitis Y Hypertension Y Gynecological HistoryNo gynecological history recorded. Obstetrics History GPAL:G 0 P 0 0 0 0 Immunizations Vaccine Type Date Status Note Provider Name and Address Organization Details Recorded Time COVID-19 PS Non-US Vaccine (EpiVacCorona) 1 completed Frank dacosta, [facility] 12/09/2020 16:27:22 Influenza A monovalent (H5N1), ADJUVANTED-2012 6 completed KEILY SHEPHERD, [facility] 07/04/2016 16:00:22 Pneumococcal conjugate PCV 13 4 completed KEILY SHEPHERD, [facility] 07/04/2016 16:00:29 zoster live 5 completed KEILY SHEPHERD, [facility] 07/04/2016 16:00:36 Hep C 0 completed KEILY SHEPHERD, [facility] 07/04/2016 16:00:57 Past Encounters Encounter ID Performer Location Encounter Start Date Encounter Closed Date Diagnosis/Indication Diagnosis SNOMED-CT Code Diagnosis ICD10 Code Diagnosis Note [id number] OLIVER OSCAR [facility] [address] [facility] [place] [address] 06/17/2015 11:15:14 06/18/2015 12:40:43 Flatulence/wind 974634486 R14.3 Worsening flatus and gas pain x 3 months. Previous antibiotic treatment with Doxycyclin e in 05/01 was effective in managing gi symptoms x > 6 months. PLAN: Low FODMAP diet. Xifaxin 550 mg TID x 14 days trial for possible SIBO Screening for malignant neoplasm of colon 818156048 Z12.11 Previous colonoscop y 2010 and previous colonoscop y screenings prior to that. Discussed colon cancer screening options with patient today and she would like to go ahead with cologard testing. PLAN: colonoscop y due 06/2015. Cologard- patient is unable to be off Coumadin at this time (d/t recent dvt). Constipation 73190931 K5 9.00 Managed with daily magnesium. [id number] OLIVER OSCAR [facility] [address] [place] [address] 07/04/2016 15:49:30 07/04/2016 16:39:00 Constipation 43777226 K59.00 Managed with daily magnesium and prn Miralax. Likely IBS-C with hx significan t gas/bloati ng, discomfort abdomen, and constipati on.PLAN; continue current constipati on management Flatulence/wind 08251307 5 R14.3 Worsening flatus and gas pain x several months. Previous antibiotic treatment with Doxycyclin e in 05/01 was effective in managing gi symptoms x > 6 months. Xifaxin 06/30 very effective in managing lower gi complaints .PLAN: continue probiotics daily. Xifaxin 550 mg TID x 14 days for suspected SIBO Irritable bowel syndrome 61282621 K58.9 Likely IBS-C with hx significan t gas/bloati ng, discomfort abdomen, and constipati on. [id number] Elisa Martinez CNP [facility] [address] [place] [address] 04/25/2018 09:57:41 04/25/2018 10:46:44 Constipation 03919573 K59.00 Constipati on is controlled with regimen of Miralax, taken most days. Pt will re-employ MgOxide which has been helpful in the past. History of polyp of colon 045127279 Z86.010 Cologuard 06/2015 - Negative. Colonoscop y 06/29/2010, Dr. King noted two 4-6 mm sessile polyps in ascending colon (tubular adenoma). Multiple small & large-mout h diverticul a in sigmoid colon. Moderate non-bleedi ng internal hemorrhoid s. Factor V L eiden mutation 428341865 D68.51 Abdominal bloating 41546 9008 R14.0 Pt will initiate Xifaxin TID x 14 days. Anticoagulant therapy 18 6156878 Z79.01 Pt has taken Warfarin since ~03/2015. Arthritis 7972607 M19.90 Pt has taken Hydrocodon e once daily for a long time for pain a/w arthritis. [id number] Elisa Martinez CNP [facility] [address] [facility] [place] [address] 12/09/2020 16:20:01 12/09/2020 17:26:57 Constipation 54604745 K59.00 Constipati on is controlled with regimen of Miralax, ~once weekly and daily mg supplement .Pt has found Viome probiotic to be helpful, as well. Osteoarthritis 663468837 M19.90 Pt takes Hydrocodon e once to twice daily Anticoagulant therapy 18 8620405 Z79.01 Pt has taken Warfarin since ~03/2015. Factor V L eiden mutation 618984015 D68.51 History of adenomatous polyp of colon 491524083 Z86.010 Colonoscop y 06/29/2010, Dr King - [...] ID Guarantor Name 06/17/2015 1 MEDICARE B-[place]: [employer] Nanda Vye [id number] Nanda Maher 06/17/2015 2 UNICARE - GIC (INDEMNITY) [id number] Sierra Maher [id number] Nanda Maher 07/04/2016 1 MEDICARE B-[place]: [employer]ITAS [employer] Nanda Vye [id number] Nanda Maher 07/04/2016 2 UNICARE - GIC (INDEMNITY) [id number] Sierra Vye [id number] Nanda Maher 04/25/2018 1 MEDICARE B-[place]: NOVITAS [employer] Nanda Vye [id number] Nanda Maher 04/25/2018 2 UNICARE - GIC (INDEMNITY) [id number] Sierra Vye [id number] Nanda Maher 12/09/2020 1 MEDICARE B-[place]: NOVIGIGIS [employer] Nanda Vye [id number] Nanda Kearneyye 12/09/2020 2 [facility] [id number] Sierra Gunnar [id number] Nanda Gunnar Notes Date Note Type Note Provider Name [...] year course of antibiotics which was helpful. OLIVER dacosta [place] - [facility] 06/17/2015 14:43:03 7 text/html [...] managed with Magnesium and prn miralax OLIVER dacosta, [facility] 07/04/2016 16:40:35 9 text/html * Incontinence / Bowel Complaints (SWGA)Reported bypatient.HISTORY:Alexa ent was seen today for follow-up visit.; 82 [...] the country, or hospitalizations. Elisa Martinez, GENNA [address] [place], [address], [facility] - [facility] 04/25/2018 10:52:48 1 text/html * Abdominal Pain (SWGA)Reported bypatient.HISTORY:Alexa ent was seen today for follow-up visit.; 85 [...] unexplained weight loss; no fever Elisa Martinez, RACE STARTER [address] [place], [address], [facility] - [facility] 12/10/2020 11:45:33 OBGyn Episode No OBEpisode recorded.
--- OUTSIDE RECORDS SUMMARY | 2024-07-29 09:38 | XMS_ITS | Data Portability ---
Author Organization [place] - [facility], [facility] Address [address] [place] [address] Care Team Providers Care Senior Data Modeler Name Role Phone FARIDA BREWER Referring Provider [...] training with LRAD and proper body mechanics. [email or web address] Not available 01/31/2024 10:53:44 02/02/2024 02/02/2024 Assessment: [...] training with LRAD and proper body mechanics. [email or web address] Not available 02/02/2024 16:50:00 02/07/2024 02/07/2024 Assessment: [...] X-rays reviewed in the office today on [facility] PACS: Weightbearing AP of both [...] of their questions today in the office. [employer] speech recognition poultry farm laborer software was used to create portions of [...] extre mity No observ ation record ed. [facility] (Imaging) [address] [facility], [place], [address], 01/04/2024 18:19:27 01/11/20 24 01/11/2024 XR, knee, 3 view http:/ [email or web address] ?Encry pted=s hAaTro YD8dLq bEUv6g %2BXZw aYqtaq 0bqfl% 2Fg9IQ a4ajBk vP9nXo QUaueC m3YtLR FvZlgJ JJ8mAn HZtai3 7q0874 AC0Kqa nSHVae hKiQtr MwF INTERFACE [facility] [address] [place] [address], [place], [address], 01/11/2024 14:14:12 01/11/20 24 01/11/2024 XR, knee, 3 view http:/ [email or web address] ?Encry pted=s hAaTro YD8dLq bEUv6g %2BXZw aYqtaq 0bqfl% 2Fg9IQ a4ajBk vP9nXo QUaueC m3YtLR FvZlgJ JJ8mAn HZtai3 6q7845 AC0Kqa nSHVae hKiQtr MwF INTERFACE [facility] [address], [place], [address], 01/11/2024 14:14:14 Result Notes None recorded. Problems Name Problem SNOMED Code Status Onset Date Resolution Date Notes Provider Name and Address Organization Details Recorded Time Osteoarthri tis of left knee joint 4486959517369 09 Active 2023 Vinicio Alfaro MD [address], [place], [address], [facility] 15:33:12 Problem Notes None recorded. Procedures Surgical History Date Name Laterality Status Provider Name and Address Organization Details Recorded Time 77671 Therapeutic Exercise (1:1) completed Johanna Hurtado, [employer] [address], [place], [address], [facility] 02/09/2024 01:34:11 11085: Manual therapy completed Johanna Hurtado [employer] [address], [place], [address], [facility] 02/09/2024 01:34:12 89250 Therapeutic Exercise (1:1) completed Zafar Yoder DPT [address], [place], [address], [facility] 01/31/2024 12:29:58 69296: Manual therapy completed Zafar Yoder DPT [address], [place], [address], [facility] 02/02/2024 16:48:10 69564 Therapeutic Exercise (1:1) completed Zafar Yoder DPT [address], [place], [address], [facility] 01/30/2024 21:24:47 07540: Manual therapy completed Zafar Yoder DPT [address], [place], [address], [facility] 01/30/2024 21:24:47 61800 Therapeutic Exercise (1:1) completed Johanna Hurtado, [employer] [address], [place], [address], [facility] 01/26/2024 10:18:22 90061: Manual therapy completed Johanna Hurtado, [employer] [address], [place], [address], [facility] 01/26/2024 10:18:22 4 33348 Therapeutic Exercise (1:1) completed Zafar Yoder DPT [address], [place], [address], [facility] 01/22/2024 08:27:44 81803: Manual therapy completed Zafar Yoder DPT [address], [place], [address], [facility] 01/22/2024 08:27:44 87228 Therapeutic Exercise (1:1) completed Johanna Hurtado, [employer] [address], [place], [address], [facility] 01/21/2024 22:27:04 4 07355: Manual therapy completed Johanna Hurtado, [employer] [address], [place], [address], [facility] 01/21/2024 22:27:04 70242 Therapeutic Exercise (1:1) completed Johanna Hurtado, [employer] [address], [place], [address], [facility] 01/17/2024 08:37:57 92221: Manual therapy completed Johanna Hurtado, [employer] [address], [place], [address], [facility] 01/17/2024 08:37:57 25024 Therapeutic Exercise (1:1) completed Zafar Yoder DPT [address], [place], [address], [facility] 01/12/2024 19:47:12 4 36932: Manual therapy completed Zafar Yoder DPT [address], [place], [address], [facility] 01/12/2024 19:47:20 4 14739 Therapeutic Exercise (1:1) completed Zafar Yoder DPT [address], [place], [address], [facility] 01/10/2024 12:33:57 4 31572: Low complexity PT Eval completed Zafar Yoder DPT [address], [place], [address], [facility] 01/10/2024 12:34:02 4 G8420 BMI Normal, No Follow-Up Plan Required completed Zafar Yoder DPT [address] [facility], [place], [address], [facility] 01/10/2024 12:34:14 4 G8427 Current Medication Documented completed Zafar Yoder DPT [address] [facility], [place], [address], [facility] 01/10/2024 12:34:12 4 39487 Therapeutic Exercise (1:1) cancelled Zafar Yoder DPT [address], [place], [address], [facility] 01/03/2024 20:56:34 4 02727: Low complexity PT Eval cancelled Zafar Yoder DPT [address], [place], [address], [facility] 01/03/2024 20:56:34 4 G8420 BMI Normal, No Follow-Up Plan Required cancelled Zafar Yoder DPT [address], [place], [address], [facility] 01/03/2024 20:56:34 4 G8427 Current Medication Documented cancelled Zafar Yoder DPT [address] [facility], [place], [address], [facility] 01/03/2024 20:56:34 4 64941 Therapeutic Exercise (1:1) completed Zafar Yoder DPT [address], [place], [address], [facility] 12/01/2023 12:00:00 4 27409: Low complexity PT Eval completed Zafar Yoder DPT [address] [facility], [place], [address], [facility] 12/01/2023 12:00:09 4 G8420 BMI Normal, No Follow-Up Plan Required completed Zafar Yoder DPT [address] [facility], [place], [address], [facility] 12/01/2023 12:00:16 4 G8427 Current Medication Documented completed Zafar Yoder DPT [address] [facility], [place], [address], [facility] 12/01/2023 12:00:12 Imaging Results Imaging Date Name Status LastModified by Organiz ation Details LastModified Time 01/04/2024 US, duplex, venous, lower extremity completed [facility] (Imaging) [address] [facility], [place], [address], 01/04/2024 18:19:27 01/11/2024 XR, knee, 3 view completed INTERFACE [facility] [address] [facility], [place], [address], 01/11/2024 14:14:12 01/11/2024 XR, knee, 3 view completed INTERFACE [facility] [address], [place], [address], 01/11/2024 14:14:14 Procedure Notes None recorded. Medical [...] Updated DateTime 04/03/2024 151.13 cm 22.2 kg/m2 24159.35 g Ayo Armstrong [place] - [facility] 04/03/2024 13:41:34 Social History None [...] SNOMED-CT Code Diagnosis ICD10 Code Diagnosis Note [id number] MD Pernell Banks 2nd floor [address] [place] [address] 06/29/2023 12:51:42 07/04/2023 10:11:51 Pain of left knee region 6011443457 26291 M25.562 Osteoarthr itis of left knee joint 1156855392 32571 M17.12 [id number] MD Pernell Banks 2nd floor [address] [place] [address] 08/23/2023 08:32:50 09/16/2023 20:44:51 Osteoarthritis of left knee joint 2500317007 30645 M17.12 [id number] MD Pernell Banks PT [address] [place] [address] 12/01/2023 09:07:56 12/01/2023 09:52:58 Osteoarthritis of knee 196864623 M17.12 [id number] Sudha Negro, FLOOR COVERER [facility] [address] [place] [address] 12/20/2023 11:08:02 01/14/2024 04:00:40 Osteoarthritis of left knee joint 5596016773 19996 M17.12 [id number] Vinicio Alfaro MD [facility] [address] [place] [address] 12/20/2023 13:15:04 01/11/2024 04:03:32 Osteoarthritis of left knee joint 5164565961 76086 M17.12 [id number] Vinicio Alfaro MD [facility] [address] [place] [address] 01/10/2024 08:16:45 01/10/2024 09:26:53 History of left total knee replacement 6714773000 830118 Z96.652 Z47.1 [id number] Zafar Yoder, DPT [facility] [address] [place] [address] 01/12/2024 14:58:53 01/12/2024 16:10:48 History of left total knee replacement 9979627665 217831 Z96.652 Z47.1 [id number] Eloise Kinsey PA-C [facility] [address] [place] [address] 01/11/2024 13:21:21 01/24/2024 09:47:28 Postoperative care 088789040 Z48.89 [id number] Mayo Sanchez, PT [facility] [address] [place] [address] 01/17/2024 09:01:13 01/17/2024 09:01:56 History of left total knee replacement 7994165018 863532 Z96.652 Z47.1 [id number] Mayo Sanchez, PT [facility] [address] [place] [address] 01/19/2024 10:42:24 01/19/2024 13:17:43 History of left total knee replacement 7764934776 277350 Z96.652 Z47.1 [id number] Zafar Yoder DPT [facility] [address] [place] [address] 01/22/2024 10:51:27 01/22/2024 11:36:06 History of left total knee replacement 2905216685 100143 Z96.652 Z47.1 [id number] Eloise Kinsey PA-C [facility] [address] [place] [address] 01/25/2024 13:11:31 02/15/2024 07:43:01 Postoperative care 960734279 Z48.89 [id number] Mayo Sanchez, PT [facility] [address] [place] [address] 01/26/2024 09:54:02 01/26/2024 10:24:34 History of left total knee replacement 4759720627 840982 Z96.652 Z47.1 [id number] Zafar Yoder DPT [facility] [address] [place] [address] 01/31/2024 09:18:39 01/31/2024 10:22:05 History of left total knee replacement 2198934174 917646 Z96.652 Z47.1 [id number] Zafar Yoder DPT [facility] [address] [place] [address] 02/02/2024 09:23:47 02/02/2024 10:36:37 History of left total knee replacement 9875913888 919881 Z96.652 Z47.1 [id number] Mayo Sanchez, PT [facility] [address] [place] [address] 02/07/2024 09:22:51 02/07/2024 11:25:19 History of left total knee replacement 8933461129 189726 Z96.652 Z47.1 [id number] Vinicio Alfaro MD [facility] [address] [place] [address] 04/03/2024 13:21:27 04/25/2024 12:17:36 History of left total knee replacement 7748953358 261830 Z96.652 Health Concerns Section Related Observation LastModified by Organization Detai ls LastModified Time None Recorded Concern Status LastModified by Organization Details LastModified Time None Recorded Advance Directives Directive None Recorded Payers Encounter Date Sequence Insurance Name Policy Number Policy Guevara Covered Member ID Guevara Member ID Guarantor Name 01/26/2024 2 [employer] - [employer] [id number] Sierra Vye [id number] Nanda Vye 01/26/2024 1 [place] [facility] Nanda Vye [id number] Nanda Vye 01/31/2024 2 [employer]ITY [employer]AN - [employer] [id number] Sierra Vye [id number] Nanda Vye 01/31/2024 1 [place] [facility] Nanda Vye [id number] Nanda Vye 02/02/2024 2 [employer]MNITY PLAN - [employer] [id number] Sierra Vye [id number] Nanda Vye 02/02/2024 1 [place] [facility] Nanda Vye [id number] Nanda Vye 02/07/2024 2 [employer] IN[employer]MNITY PLAN - [employer] [id number] Sierra Vye [id number] Nanda Vye 02/07/2024 1 [place] [facility] Nanda Vye [id number] Nanda Vye 04/03/2024 2 [employer] INDEMNITY PLAN - [employer] [id number] Sierra Vye [id number] Nanda Vye 04/03/2024 1 [place] [facility] Nanda Vye [id number] Nanda Vye Notes Date Note Type Note Provider Name and Address Organization Details Recorded Time 01/26/2024 text/html Pt reports she is able to do going down stairs reciprocally. Right knee feels good. Pt continues to use her walker due to pain in the left knee and lower back.Pains 0/10 in right knee at rest Johanna Hurtado, [employer] [address], [place], [address], [facility] 01/29/2024 22:47:28 01/31/2024 text/html Pt reports she fell yesterday but did not hit her knee on the ground. Pt had muscle relaxor which helps for her spasm.Pains 0/10 at rest. TIMOTHY MurilloT [address], [place], [address], [facility] 01/31/2024 10:53:56 02/02/2024 text/html Pt reports she fell yesterday but did not hit her knee on the ground. Pt had muscle relaxor which helps for her spasm.02/01. Pt states no pain and no spasm in her knee today. Pains 0/10 at rest. TIMOTHY MurilloT [address], [place], [address], [facility] 02/02/2024 16:50:32 02/07/2024 text/html Pt reports has been doing well. Still has some swelling and bruising from fall last week.Pain is 0/10 at rest. Johanna Hurtado, [employer] [address], [place], [address], [facility] 02/09/2024 01:39:38 OBGyn Episode No OBEpisode recorded.
== END 2024-07-29 09:40 | disposition home or self-care (01) ==
LOC: HO.HUSH 08:51
PROVIDERS: PCP Internal Medicine; Visit Provider Urology
DX: N39.0 Urinary tract infection, site not specified (principal); A49.9 Bacterial infection, unspecified; Z16.12 Extended spectrum beta lactamase (ESBL) resistance; N81.9 Female genital prolapse, unspecified
CPT/HCPCS: 99204

== ENCOUNTER → 2024-07-29 08:50 | Outpatient (BNVA) | payer MEDICARE, OTHER, SELFPAY | PROVIDERS: PCP Internal Medicine; Visit Provider Urology | DX: N39.0 Urinary tract infection, site not specified (principal); A49.9 Bacterial infection, unspecified; Z16.12 Extended spectrum beta lactamase (ESBL) resistance; N81.9 Female genital prolapse, unspecified | CPT/HCPCS: 51798; 99202 ==

== ENCOUNTER 2024-08-12 10:45 | Outpatient (AMB) | payer MEDICARE, OTHER, SELFPAY ==
--- NOTE | 2024-08-12 10:41 | A.OFFVIS_ITS ---
Vital Signs 08/12/24 10:50 Height 4 ft 11 in Weight 112 lb BMI 22.6 Pulse 73 Pulse Source Pulse Oximeter Pulse Oximetry (%) 97 Oxygen Delivery Method Room Air Intake Visit Reasons: [facility] Urology reff/ESBL Allergies No Known Allergies Allergy (Verified 08/12/24 10:50) HPI HPI [facility] Urology reff/ESBL: Details: She has UTIs possibly due to bladder stasis from one to three times a year starting with urinary hesitancy and vaginal discomfort. She had urine culture ESBL on 06/11 and received nitrofurantoin. Most recently she finished another week of nitrofurantoin one week. She feels better . [facility] Surgical History History of left knee replacement History of cataract surgery Family History Mother No problems noted. Father No problems noted. Son No problems noted. Son No problems noted. Daughter No problems noted. Social History Housing: Apartment Alcohol intake: current Alcohol intake frequency: a few times a month Comment: ocnce a week 1 glass Patient Tobacco Use Status: Never used Tobacco Tobacco use type: Cigarette e-Cigarette/Vaping Use: Never Used Second Hand Smoke Exposure: No service: No Current occupational status: retired Current occupation: RETIRED Current occupational exposures/hazards: No Cognitive needs: Yes (Walker) Hearing needs: No Vision needs: Yes Review of Systems Const All systems reviewed & are unremarkable except as noted in HPI and below Physical Exam Vital Signs: Last Vital Signs Pulse 73 08/12/24 10:50 Pulse Ox 97 08/12/24 10:50 Oxygen Delivery Method Room Air 08/12/24 10:50 BMI result Body Mass Index 22.6 Const General: cooperative Orientation/consciousness: patient oriented x3 HEENT Head: Yes normal to inspection Mouth: Normal oral and palatal mucosa present Eyes General: appearance normal, both eyes and all related structures Pupils: Equal, round and reactive pupils present Resp Effort & Inspection: normal respiratory effort Cardio Rate: regular rate Rhythm: regular rhythm GI Palpation (GI): Soft to palpation and nontender General: Yes no CVA tenderness Back/Spine/Pelvis Back: no CVA tenderness Skin General skin exam: no rashes or lesions noted Neuro General: patient oriented x3 Cranial nerves: Yes CN's II-XII intact bilaterally and Yes Equal, round and reactive pupils present Extrem General: Yes normal to inspection Psych Appearance: grossly normal Assessment & Plan Assessment & Plan (1) Pelvic prolapse: Comment: Cause of recurrent UTI,prolapse,urinary stasis Code(s): N81.9 - Female genital prolapse, unspecified Category: Medical Plan: Use macrodantin prn need,patient needs urine culture if no better day or two. Methenamine acidification. No appt ,see prn need. (2) ESBL (extended spectrum beta-lactamase) producing bacteria infection: Code(s): A49.9 - Bacterial infection, unspecified; Z16.12 - Extended spectrum beta lactamase (ESBL) resistance Category: Medical Plan: na Medications: New nitrofurantoin macrocrystal must administer with a meal/food 100 mg PO BID 28 caps 3RF 14 days methenamine hippurate 1 g PO BID 60 tabs 11RF 30 days Coding Level of Care Code New Pt Level 3 (15159) Diagnoses Pelvic prolapse N81.9 ESBL (extended spectrum beta-lactamase) producing bacteria infection A49.9; Z16.12
[2024-08-12 10:50] VITALS: PULSE 73; O2SAT 97; BMI 22.6
--- OUTSIDE RECORDS SUMMARY | 2024-08-12 12:47 | XMS_ITS | Encounter Summary ---
Author Organization Formerly [facility] Address [address] [place] [address] Care Team Providers Care Hospice Volunteer Coordinator Name Role Phone Post, Jeremias Meraz MD Primary Care Provider Encounter Details Date Type Department Care Team (Late st Contact Info) Description 03/06/2023 Scanned Document [facility] Department of Internal Medicine & Nephrology [place] [address] [place] [address] [address] [place] [id number] Post, Jeremias Meraz MD [address] [address] Social History Tobacco Use Types Packs/Day Years Used Date Smoking Tobacco: Never Assessed Comments Unknown Sex and Gender Information Value Date Recorded Sex Assigned at Not on file Legal Sex Female 12:11 PM EDT Gender Identity Not on file Sexual Orientation Not on file documented as of this encounter Plan of Treatment Not on file documented as of this encounter Visit Diagnoses Not on filedocumented in this encounter Care Teams Hospice Volunteer Coordinator Relationship Specialty Start Date End Date Post, Jeremias Meraz MD [address] [address] PCP - General 04/16/23 documented as of this encounter
--- OUTSIDE RECORDS SUMMARY | 2024-08-12 12:47 | XMS_ITS | Clinical Summary ---
Author Organization [facility] Address [address] [place] [address] Care Team Providers Care Wildlife Photographer Name Role Phone Unavailable Primary Care Provider [...]
== END 2024-08-12 11:51 | disposition home or self-care (01) ==
LOC: HO.HID 10:45
PROVIDERS: PCP Internal Medicine; Visit Provider Internal Medicine
DX: N81.9 Female genital prolapse, unspecified (principal); A49.9 Bacterial infection, unspecified; Z16.12 Extended spectrum beta lactamase (ESBL) resistance
CPT/HCPCS: 99203

== ENCOUNTER → 2024-08-12 10:45 | Outpatient (BNVA) | payer MEDICARE, OTHER, SELFPAY | PROVIDERS: PCP Internal Medicine; Visit Provider Internal Medicine | DX: N81.9 Female genital prolapse, unspecified (principal); A49.9 Bacterial infection, unspecified; Z16.12 Extended spectrum beta lactamase (ESBL) resistance | CPT/HCPCS: 99202 ==

== ENCOUNTER 2024-09-16 12:47 | Outpatient (REF) | payer MEDICARE, OTHER, SELFPAY ==
--- NOTE | ~2024-09-16 | US_ITS ---
EXAMINATION: US RETROPERITONEUM HISTORY: N39.0 - Urinary tract infection, site not specified TECHNIQUE: Real-time grayscale ultrasound imaging of the kidneys was performed and images were reviewed. COMPARISON: There are no prior studies available for comparison. FINDINGS: Right kidney: The right kidney measures 9.0 x 5.0 x 4.3 cm. Renal parenchymal echotexture and thickness are normal. There are no masses. There is no hydronephrosis or renal calculi. Left Kidney: The left kidney measures 8.6 x 4.0 x 3.6 cm. Renal parenchymal echotexture and thickness are normal. There are no masses. There is no hydronephrosis or renal calculi. The urinary bladder is unremarkable. Bilateral ureteral jets are identified. Before voiding, the urinary bladder measured 10.5 x 12.1 x 7.9 cm, for an estimated volume of 525.5 mL. After voiding, the urinary bladder measured 5.7 x 5.7 x 4.6 cm, for an estimated volume of 78.3 mL. US/US retroperitoneal comp IMPRESSION: Unremarkable renal ultrasound. Post void bladder residual of 78.3 mL. Electronically signed by: Kamlesh Crawford MD 09/16/2024 03:16 PM EDT
--- OUTSIDE RECORDS SUMMARY | 2024-09-16 13:45 | XMS_ITS | Data Portability ---
Author Organization [place] - [facility], [facility] Address [address] [place] [address] Care Team Providers Care Ferryboat Deckhand Name Role Phone FARIDA BREWER Referring Provider [...] training with LRAD and proper body mechanics. [email or web address] Not available 01/31/2024 10:53:44 02/02/2024 02/02/2024 Assessment: [...] training with LRAD and proper body mechanics. [email or web address] Not available 02/02/2024 16:50:00 02/07/2024 02/07/2024 Assessment: [...] X-rays reviewed in the office today on [facility] PACS: Weightbearing AP of both [...] of their questions today in the office. [employer] speech recognition phytopathologist software was used to create portions of [...] extre mity No observ ation record ed. [facility] (Imaging) [address], [place], [address], 01/04/2024 18:19:27 01/11/20 24 01/11/2024 XR, knee, 3 view [email or web address]:/ [email or web address] ?Encry pted=s hAaTro YD8dLq bEUv6g %2BXZw aYqtaq 0bqfl% 2Fg9IQ a4ajBk vP9nXo QUaueC m3YtLR FvZlgJ JJ8mAn HZtai3 5p8454 AC0Kqa nSHVae hKiQtr MwF INTERFACE [facility] [address] [address], [place], [address], 01/11/2024 14:14:12 01/11/20 24 01/11/2024 XR, knee, 3 view [email or web address]:/ [email or web address] ?Encry pted=s hAaTro YD8dLq bEUv6g %2BXZw aYqtaq 0bqfl% 2Fg9IQ a4ajBk vP9nXo QUaueC m3YtLR FvZlgJ JJ8mAn HZtai3 1c6847 AC0Kqa nSHVae hKiQtr MwF INTERFACE [facility] [address], [place], [address], 01/11/2024 14:14:14 Result Notes None recorded. Problems Name Problem SNOMED Code Status Onset Date Resolution Date Notes Provider Name and Address Organization Details Recorded Time Osteoarthri tis of left knee joint 1936839632404 09 Active 2023 Vinicio Alfaro MD [address], [place], [address], [facility] 15:33:12 Problem Notes None recorded. Procedures Surgical History Date Name Laterality Status Provider Name and Address Organization Details Recorded Time 87950 Therapeutic Exercise (1:1) completed Johanna Hurtado, DISTRIBUTING CLERK [address], [place], [address], [facility] 02/09/2024 01:34:11 16823: Manual therapy completed Johanna Hurtado DISTRIBUTING CLERK [address], [place], [address], [facility] 02/09/2024 01:34:12 43610 Therapeutic Exercise (1:1) completed Zafar Yoder DPT [address], [place], [address], [facility] 01/31/2024 12:29:58 54885: Manual therapy completed Zafar Yoder DPT [address], [place], [address], [facility] 02/02/2024 16:48:10 36882 Therapeutic Exercise (1:1) completed Zafar Yoder DPT [address], [place], [address], [facility] 01/30/2024 21:24:47 02913: Manual therapy completed Zafar Yoder DPT [address], [place], [address], [facility] 01/30/2024 21:24:47 27931 Therapeutic Exercise (1:1) completed Johanna Hurtado, DISTRIBUTING CLERK [address], [place], [address], [facility] 01/26/2024 10:18:22 04985: Manual therapy completed Johanna Hurtado, DISTRIBUTING CLERK [address], [place], [address], [facility] 01/26/2024 10:18:22 4 52672 Therapeutic Exercise (1:1) completed Zafar Yoder DPT [address], [place], [address], [facility] 01/22/2024 08:27:44 74134: Manual therapy completed Zafar Yoder DPT [address], [place], [address], [facility] 01/22/2024 08:27:44 99982 Therapeutic Exercise (1:1) completed Johanna Hurtado, DISTRIBUTING CLERK [address], [place], [address], [facility] 01/21/2024 22:27:04 4 61786: Manual therapy completed Johanna Hurtado, DISTRIBUTING CLERK [address], [place], [address], [facility] 01/21/2024 22:27:04 17236 Therapeutic Exercise (1:1) completed Johanna Hurtado, DISTRIBUTING CLERK [address], [place], [address], [facility] 01/17/2024 08:37:57 37559: Manual therapy completed Johanna Hurtado, DISTRIBUTING CLERK [address], [place], [address], [facility] 01/17/2024 08:37:57 93608 Therapeutic Exercise (1:1) completed Zafar Yoder DPT [address], [place], [address], [facility] 01/12/2024 19:47:12 4 85987: Manual therapy completed Zafar Yoder DPT [address], [place], [address], [facility] 01/12/2024 19:47:20 4 79283 Therapeutic Exercise (1:1) completed Zafar Yoder DPT [address], [place], [address], [facility] 01/10/2024 12:33:57 4 04379: Low complexity PT Eval completed Zafar Yoder DPT [address], [place], [address], [facility] 01/10/2024 12:34:02 4 G8420 BMI Normal, No Follow-Up Plan Required completed Zafar Yoder DPT [address] [facility], [place], [address], [facility] 01/10/2024 12:34:14 4 G8427 Current Medication Documented completed Zafar Yoder DPT [address] [facility], [place], [address], [facility] 01/10/2024 12:34:12 4 53154 Therapeutic Exercise (1:1) cancelled Zafar Yoder DPT [address], [place], [address], [facility] 01/03/2024 20:56:34 4 37032: Low complexity PT Eval cancelled Zafar Yoder DPT [address], [place], [address], [facility] 01/03/2024 20:56:34 4 G8420 BMI Normal, No Follow-Up Plan Required cancelled Zafar Yoder DPT [address], [place], [address], [facility] 01/03/2024 20:56:34 4 G8427 Current Medication Documented cancelled Zafar Yoder DPT [address], [place], [address], [facility] 01/03/2024 20:56:34 4 53669 Therapeutic Exercise (1:1) completed Zafar Yoder DPT [address], [place], [address], [facility] 12/01/2023 12:00:00 4 03561: Low complexity PT Eval completed Zafar Yoder DPT [address], [place], [address], [facility] 12/01/2023 12:00:09 4 G8420 BMI Normal, No Follow-Up Plan Required completed Zafar Yoder DPT [address] [facility], [place], [address], [facility] 12/01/2023 12:00:16 4 G8427 Current Medication Documented completed Zafar Yoder DPT [address], [place], [address], [facility] 12/01/2023 12:00:12 Imaging Results None recorded. Procedure Notes None [...] Updated DateTime 04/03/2024 151.13 cm 22.2 kg/m2 64734.35 g Ayo Armstrong [place] - [facility] 04/03/2024 13:41:34 Social History None recorded. Functional Status None recorded. Mental Status None recorded. Family History Nothing Reported. Medical History Condition Response Bleeding Disorder Y Kidney/Bladder Problems Y Arthritis Y Hypertension Y Cholesterol Y Blood Clot Y Gynecological HistoryNo gynecological history recorded. Obstetrics History GPAL:G 0 P 0 0 0 0 Past Encounters Encounter ID Performer Location Encounter Start Date Encounter Closed Date Diagnosis/Indication Diagnosis SNOMED-CT Code Diagnosis ICD10 Code Diagnosis Note [id number] MD Kiki Banks [address] [place] [address] 06/29/2023 12:51:42 07/04/2023 10:11:51 Pain of left knee region 1175342214 88943 M25.562 Osteoarthr itis of left knee joint 0912971571 41813 M17.12 [id number] MD Kiki Banks [address] [place] [address] 08/23/2023 08:32:50 09/16/2023 20:44:51 Osteoarthritis of left knee joint 1129353723 04293 M17.12 [id number] TREY Murilloe PT [address] [place] [address] 12/01/2023 09:07:56 12/01/2023 09:52:58 Osteoarthritis of knee 291530151 M17.12 [id number] GENNA Lisa [address] [place] [address] 12/20/2023 11:08:02 01/14/2024 04:00:40 Osteoarthritis of left knee joint 8813130272 71101 M17.12 [id number] MD Kiki Banks [address] [place] [address] 12/20/2023 13:15:04 01/11/2024 04:03:32 Osteoarthritis of left knee joint 8708386391 33119 M17.12 [id number] TREY Murilloe PT [address] [place] [address] 01/10/2024 08:16:45 01/10/2024 09:26:53 History of left total knee replacement 8688104205 173254 Z96.652 Z47.1 [id number] TIMOTHY MurilloT [facility] [address] [place] [address] 01/12/2024 14:58:53 01/12/2024 16:10:48 History of left total knee replacement 0155377114 177413 Z96.652 Z47.1 [id number] PANCHO Colby [address] [place] [address] 01/11/2024 13:21:21 01/24/2024 09:47:28 Postoperative care 535454526 Z48.89 [id number] Johanna Hurtado, DISTRIBUTING CLERK [facility] [address] [place] [address] 01/17/2024 09:01:13 01/17/2024 09:01:56 History of left total knee replacement 8890548046 212082 Z96.652 Z47.1 [id number] Johanna Hurtado, DISTRIBUTING CLERK [facility] [address] [place] [address] 01/19/2024 10:42:24 01/19/2024 13:17:43 History of left total knee replacement 9637242421 606358 Z96.652 Z47.1 [id number] Zafar Yoder DPT [facility] [address] [place] [address] 01/22/2024 10:51:27 01/22/2024 11:36:06 History of left total knee replacement 6726837224 155284 Z96.652 Z47.1 [id number] Eloise Kinsey PA-C [facility] [address] [place] [address] 01/25/2024 13:11:31 02/15/2024 07:43:01 Postoperative care 221374219 Z48.89 [id number] Johanna Hurtado, DISTRIBUTING CLERK [facility] [address] [place] [address] 01/26/2024 09:54:02 01/26/2024 10:24:34 History of left total knee replacement 0303383225 735076 Z96.652 Z47.1 [id number] Patrickvick Paresh, DPT [facility] [address] [place] [address] 01/31/2024 09:18:39 01/31/2024 10:22:05 History of left total knee replacement 4818153946 163305 Z96.652 Z47.1 [id number] Patrickrenasang Yoder, DPT [facility] [address] [place] [address] 02/02/2024 09:23:47 02/02/2024 10:36:37 History of left total knee replacement 5011065980 333834 Z96.652 Z47.1 [id number] Johanna Hurtado, DISTRIBUTING CLERK [facility] [address] [place] [address] 02/07/2024 09:22:51 02/07/2024 11:25:19 History of left total knee replacement 1318116913 595838 Z96.652 Z47.1 [id number] Vinicio Alfaro MD [facility] [address] [place] [address] 04/03/2024 13:21:27 04/25/2024 12:17:36 History of left total knee replacement 3824897370 725009 Z96.652 Health Concerns Section Related Observation LastModified by Organization Detai ls LastModified Time None Recorded Concern Status LastModified by Organization Details LastModified Time None Recorded Advance Directives Directive None Recorded Payers Encounter Date Sequence Insurance Name Policy Number Policy Ugevara Covered Member ID Guevara Member ID Guarantor Name 01/26/2024 2 [facility] INDEMNITY PLAN - UNICARE [id number] Sierra Maher [id number] Nanda Maher 01/26/2024 1 [place]: [facility] [employer] Nanda Maher [id number] Nanda Maher 01/31/2024 2 [facility] INDEMNITY PLAN - UNICARE [id number] Sierra Maher [id number] Nanda Maher 01/31/2024 1 [place] [facility] [employer]MENT SERVICES Nanda Kearneyye [id number] Nanda Vye 02/02/2024 2 [facility] [id number] Sierra Vye [id number] Nanda Vye 02/02/2024 1 [place] [facility]MENT SERVICES Nanda Vye [id number] Nanda Vye 02/07/2024 2 [facility] [id number] Sierra Vye [id number] Nanda Vye 02/07/2024 1 [place]: [facility] Nanda Vye [id number] Nanda Vye 04/03/2024 2 [facility] [id number] Sierra Vye [id number] Nanda Vye 04/03/2024 1 [place] [facility] Nanda Kearneyye [id number] Nanda Vye Notes Date Note Type Note Provider Name and Address Organization Details Recorded Time 01/26/2024 text/html Pt reports she is able to do going down stairs reciprocally. Right knee feels good. Pt continues to use her walker due to pain in the left knee and lower back.Pains 0/10 in right knee at rest Johanna Hurtado, DISTRIBUTING CLERK [address], [place], [address], [facility] 01/29/2024 22:47:28 01/31/2024 text/html Pt reports she fell yesterday but did not hit her knee on the ground. Pt had muscle relaxor which helps for her spasm.Pains 0/10 at rest. Zafar Yoder, DPT [address], [place], [address], [facility] 01/31/2024 10:53:56 02/02/2024 text/html Pt reports she fell yesterday but did not hit her knee on the ground. Pt had muscle relaxor which helps for her spasm.02/01. Pt states no pain and no spasm in her knee today. Pains 0/10 at rest. Zafar Yoder, DPT [address], [place], [address], [facility] 02/02/2024 16:50:32 02/07/2024 text/html Pt reports has been doing well. Still has some swelling and bruising from fall last week.Pain is 0/10 at rest. Johanna Hurtado, DISTRIBUTING CLERK [address], [place], [address], [facility] 02/09/2024 01:39:38 OBGyn Episode No OBEpisode recorded.
== END 2024-09-16 12:48 | disposition home or self-care (01) ==
LOC: HO.US 12:47
PROVIDERS: PCP Internal Medicine; Visit Provider Urology
DX: N39.0 Urinary tract infection, site not specified (principal); N81.9 Female genital prolapse, unspecified
CPT/HCPCS: 76770

== ENCOUNTER → 2024-09-16 12:48 | Outpatient (BNV) | payer MEDICARE, OTHER, SELFPAY | PROVIDERS: PCP Internal Medicine; Visit Provider Radiology Diagnostic Radiology | DX: N39.0 Urinary tract infection, site not specified (principal) | CPT/HCPCS: 76770 ==

== ENCOUNTER 2024-09-27 10:22 | Outpatient (AMB) | payer MEDICARE, OTHER, SELFPAY ==
--- NOTE | 2024-09-27 10:43 | A.OFFVIS_ITS ---
Intake Visit Reasons: cysto/pessary fitting/US Intake Note: Patient presents to office today for cysto/pessary fitting/US * Renal US 09/16 Urology Medication:Methenamine Hippurate Blood Thinner:Apixaban Antibiotic Allergies:none Allergies No Known Allergies Allergy (Verified 09/27/24 10:47) [facility] Surgical History History of left knee replacement History of cataract surgery Family History Mother No problems noted. Father No problems noted. Son No problems noted. Son No problems noted. Daughter No problems noted. Social History Housing: Apartment Alcohol intake: current Alcohol intake frequency: a few times a month Comment: ocnce a week 1 glass Patient Tobacco Use Status: Never used Tobacco Tobacco use type: Cigarette e-Cigarette/Vaping Use: Never Used Second Hand Smoke Exposure: No service: No Current occupational status: retired Current occupation: RETIRED Current occupational exposures/hazards: No Cognitive needs: Yes (Walker) Hearing needs: No Vision needs: Yes Results AMB Urinalysis, Automated UA Leukoctes 0 Vero/uL Last Edit by Dariana Pelaez on 09/27/24 14:15 UA Nitrite Negative Last Edit by Dariana Pelaez on 09/27/24 14:15 UA Urobilinogen 3.5 mg/dL Last Edit by Dariana Pelaez on 09/27/24 14:15 UA Protein 0 mg/dL Last Edit by Dariana Pelaez on 09/27/24 14:15 UA pH 6.0 Last Edit by Dariana Pelaez on 09/27/24 14:15 UA Blood 0 Corona/uL Last Edit by Dariana Pelaez on 09/27/24 14:15 UA Specific Melber 1.015 Last Edit by Dariana Pelaez on 09/27/24 14:15 UA Ketone Negative Last Edit by Dariana Pelaez on 09/27/24 14:15 UA Bilirubin 0 mg/dL Last Edit by Dariana Pelaez on 09/27/24 14:15 UA Glucose 0 mg/dL Last Edit by Dariana Pelaez on 09/27/24 14:15 Results Reviewed Results Reviewed: Date of Service: 09/16/24 Procedure(s): US retroperitoneal comp Accession Number(s): [id number] cc: Sosa Beckett MD; Felix,Scarlet Hernandez MD~ EXAMINATION: US RETROPERITONEUM HISTORY: N39.0 - Urinary tract infection, site not specified TECHNIQUE: Real-time grayscale ultrasound imaging of the kidneys was performed and images were reviewed. COMPARISON: There are no prior studies available for comparison. FINDINGS: Right kidney: The right kidney measures 9.0 x 5.0 x 4.3 cm. Renal parenchymal echotexture and thickness are normal. There are no masses. There is no hydronephrosis or renal calculi. Left Kidney: The left kidney measures 8.6 x 4.0 x 3.6 cm. Renal parenchymal echotexture and thickness are normal. There are no masses. There is no hydronephrosis or renal calculi. The urinary bladder is unremarkable. Bilateral ureteral jets are identified. Before voiding, the urinary bladder measured 10.5 x 12.1 x 7.9 cm, for an estimated volume of 525.5 mL. After voiding, the urinary bladder measured 5.7 x 5.7 x 4.6 cm, for an estimated volume of 78.3 mL. US/US retroperitoneal comp IMPRESSION: Unremarkable renal ultrasound. Post void bladder residual of 78.3 mL. Assessment & Plan Assessment & Plan Orders: Orders AMB Urinalysis Automated Today N39.0 - Urinary tract infection, site not specified, N81.9 - Female genital prolapse, unspecified Coding
--- OUTSIDE RECORDS SUMMARY | 2024-09-27 11:22 | XMS_ITS | Data Portability ---
Author Organization ID - [facility], [facility] Address [address] [place] [address] Care Team Providers Care Video Editor Name Role Phone FARIDA BREWER Referring Provider [...] training with LRAD and proper body mechanics. [email or web address] Not available 01/31/2024 10:53:44 02/02/2024 02/02/2024 Assessment: [...] training with LRAD and proper body mechanics. [email or web address] Not available 02/02/2024 16:50:00 02/07/2024 02/07/2024 Assessment: [...] X-rays reviewed in the office today on [facility] PACS: Weightbearing AP of both [...] of their questions today in the office. [employer] speech recognition monotype setter software was used to create portions of [...] extre mity No observ ation record ed. [facility] (Imaging) [address], [place], [address], 01/04/2024 18:19:27 01/11/20 24 01/11/2024 XR, knee, 3 view [email or web address] ?Encry pted=s hAaTro YD8dLq bEUv6g %2BXZw aYqtaq 0bqfl% 2Fg9IQ a4ajBk vP9nXo QUaueC m3YtLR FvZlgJ JJ8mAn HZtai3 6u8320 AC0Kqa nSHVae hKiQtr MwF INTERFACE [facility] [address] [place] [address], [place], [address], 01/11/2024 14:14:12 01/11/20 24 01/11/2024 XR, knee, 3 view [email or web address] ?Encry pted=s hAaTro YD8dLq bEUv6g %2BXZw aYqtaq 0bqfl% 2Fg9IQ a4ajBk vP9nXo QUaueC m3YtLR FvZlgJ JJ8mAn HZtai3 6p7922 AC0Kqa nSHVae hKiQtr MwF INTERFACE [facility] [address], [place], [address], 01/11/2024 14:14:14 Result Notes None recorded. Problems Name Problem SNOMED Code Status Onset Date Resolution Date Notes Provider Name and Address Organization Details Recorded Time Osteoarthri tis of left knee joint 7281744266650 09 Active 2023 Vinicio Alfaro MD [address], [place], [address], [facility] 15:33:12 Problem Notes None recorded. Procedures Surgical History Date Name Laterality Status Provider Name and Address Organization Details Recorded Time 28619 Therapeutic Exercise (1:1) completed Johanna Hurtado, SILVERING APPLICATOR [address], [place], [address], [facility] 02/09/2024 01:34:11 47636: Manual therapy completed Johanna Hurtado SILVERING APPLICATOR [address], [place], [address], [facility] 02/09/2024 01:34:12 89141 Therapeutic Exercise (1:1) completed Zafar Yoder DPT [address], [place], [address], [facility] 01/31/2024 12:29:58 27500: Manual therapy completed Zafar Yoder DPT [address], [place], [address], [facility] 02/02/2024 16:48:10 03377 Therapeutic Exercise (1:1) completed Zafar Yoder DPT [address], [place], [address], [facility] 01/30/2024 21:24:47 89694: Manual therapy completed Zafar Yoder DPT [address], [place], [address], [facility] 01/30/2024 21:24:47 27478 Therapeutic Exercise (1:1) completed Johanna Hurtado, SILVERING APPLICATOR [address], [place], [address], [facility] 01/26/2024 10:18:22 76355: Manual therapy completed Johanna Hurtado, SILVERING APPLICATOR [address], [place], [address], [facility] 01/26/2024 10:18:22 4 00577 Therapeutic Exercise (1:1) completed Zafar Yoder DPT [address], [place], [address], [facility] 01/22/2024 08:27:44 33629: Manual therapy completed Zafar Yoder DPT [address], [place], [address], [facility] 01/22/2024 08:27:44 05653 Therapeutic Exercise (1:1) completed Johanna Hurtado, SILVERING APPLICATOR [address], [place], [address], [facility] 01/21/2024 22:27:04 4 49062: Manual therapy completed Johanna Hurtado, SILVERING APPLICATOR [address], [place], [address], [facility] 01/21/2024 22:27:04 09543 Therapeutic Exercise (1:1) completed Johanna Hurtado, SILVERING APPLICATOR [address], [place], [address], [facility] 01/17/2024 08:37:57 64590: Manual therapy completed Johanna Hurtado, SILVERING APPLICATOR [address], [place], [address], [facility] 01/17/2024 08:37:57 17253 Therapeutic Exercise (1:1) completed Zafar Yoder DPT [address], [place], [address], [facility] 01/12/2024 19:47:12 4 18651: Manual therapy completed Zafar Yoder DPT [address], [place], [address], [facility] 01/12/2024 19:47:20 4 55160 Therapeutic Exercise (1:1) completed Zafar Yoder DPT [address], [place], [address], [facility] 01/10/2024 12:33:57 4 07992: Low complexity PT Eval completed Zafar Yoder DPT [address], [place], [address], [facility] 01/10/2024 12:34:02 4 G8420 BMI Normal, No Follow-Up Plan Required completed Zafar Yoder DPT [address] [facility], [place], [address], [facility] 01/10/2024 12:34:14 4 G8427 Current Medication Documented completed Zafar Yoder DPT [address] [facility], [place], [address], [facility] 01/10/2024 12:34:12 4 12800 Therapeutic Exercise (1:1) cancelled Zafar Yoder DPT [address], [place], [address], [facility] 01/03/2024 20:56:34 4 01492: Low complexity PT Eval cancelled Zafar Yoder DPT [address], [place], [address], [facility] 01/03/2024 20:56:34 4 G8420 BMI Normal, No Follow-Up Plan Required cancelled Zafar Yoder DPT [address], [place], [address], [facility] 01/03/2024 20:56:34 4 G8427 Current Medication Documented cancelled Zafar Yoder DPT [address], [place], [address], [facility] 01/03/2024 20:56:34 4 41257 Therapeutic Exercise (1:1) completed Zafar Yoder DPT [address], [place], [address], [facility] 12/01/2023 12:00:00 4 07697: Low complexity PT Eval completed Zafar Yoder DPT [address], [place], [address], [facility] 12/01/2023 12:00:09 4 G8420 BMI Normal, No Follow-Up Plan Required completed Zafar Yoder DPT [address] [facility], [place], [address], [facility] 12/01/2023 12:00:16 4 G8427 Current Medication Documented completed Zafar Yoder DPT [address], [place], [address], [facility] 12/01/2023 12:00:12 Imaging Results None recorded. Procedure [...] Updated DateTime 04/03/2024 151.13 cm 22.2 kg/m2 61493.35 g Ayo Armstrong ID - [facility] 04/03/2024 13:41:34 Social History [...] SNOMED-CT Code Diagnosis ICD10 Code Diagnosis Note [id number] MD Kiki Banks 2[address] [place] [address] 06/29/2023 12:51:42 07/04/2023 10:11:51 Pain of left knee region 9657384833 35564 M25.562 Osteoarthr itis of left knee joint 5143563228 41659 M17.12 [id number] MD Kiki Banks 2[address] [place] [address] 08/23/2023 08:32:50 09/16/2023 20:44:51 Osteoarthritis of left knee joint 3537108845 89525 M17.12 [id number] TREY Murilloe PT [address] [place] [address] 12/01/2023 09:07:56 12/01/2023 09:52:58 Osteoarthritis of knee 265550255 M17.12 [id number] GENNA Lisa [address] [place] [address] 12/20/2023 11:08:02 01/14/2024 04:00:40 Osteoarthritis of left knee joint 4234092871 43639 M17.12 [id number] MD Kiki Banks 2[address] [place] [address] 12/20/2023 13:15:04 01/11/2024 04:03:32 Osteoarthritis of left knee joint 5308381755 36677 M17.12 [id number] TREY Murilloe PT [address] [place] [address] 01/10/2024 08:16:45 01/10/2024 09:26:53 History of left total knee replacement 0862710327 519648 Z96.652 Z47.1 [id number] TIMOTHY MurilloT [facility] [address] [place] [address] 01/12/2024 14:58:53 01/12/2024 16:10:48 History of left total knee replacement 9689836895 997254 Z96.652 Z47.1 [id number] PANCHO Colby [address] [place] [address] 01/11/2024 13:21:21 01/24/2024 09:47:28 Postoperative care 430807577 Z48.89 [id number] Johanna Hurtado, SILVERING APPLICATOR [facility] [address] [place] [address] 01/17/2024 09:01:13 01/17/2024 09:01:56 History of left total knee replacement 6231825228 755605 Z96.652 Z47.1 [id number] Johanna Hurtado, SILVERING APPLICATOR [facility] [address] [place] [address] 01/19/2024 10:42:24 01/19/2024 13:17:43 History of left total knee replacement 3645155843 567495 Z96.652 Z47.1 [id number] Zafar Yoder DPT [facility] [address] [place] [address] 01/22/2024 10:51:27 01/22/2024 11:36:06 History of left total knee replacement 0075432570 505298 Z96.652 Z47.1 [id number] Eloise Kinsey PA-C [facility] [address] [place] [address] 01/25/2024 13:11:31 02/15/2024 07:43:01 Postoperative care 236711400 Z48.89 [id number] Johanna Hurtado, SILVERING APPLICATOR [facility] [address] [place] [address] 01/26/2024 09:54:02 01/26/2024 10:24:34 History of left total knee replacement 2013959863 732199 Z96.652 Z47.1 [id number] Patrickvick Paresh, DPT [facility] [address] [place] [address] 01/31/2024 09:18:39 01/31/2024 10:22:05 History of left total knee replacement 0571932855 938910 Z96.652 Z47.1 [id number] Patrickrenasang Yoder, DPT [facility] [address] [place] [address] 02/02/2024 09:23:47 02/02/2024 10:36:37 History of left total knee replacement 8690393781 430512 Z96.652 Z47.1 [id number] Johanna Hurtado, SILVERING APPLICATOR [facility] [address] [place] [address] 02/07/2024 09:22:51 02/07/2024 11:25:19 History of left total knee replacement 8314035465 320140 Z96.652 Z47.1 [id number] Vinicio Alfaro MD [facility] [address] [place] [address] 04/03/2024 13:21:27 04/25/2024 12:17:36 History of left total knee replacement 7431684285 516111 Z96.652 Health Concerns Section Related Observation LastModified by Organization Detai ls LastModified Time None Recorded Concern Status LastModified by Organization Details LastModified Time None Recorded Advance Directives Directive None Recorded Payers Insurance Date Sequence Insurance Name Policy Number Policy Guevara Covered Member ID Guevara Member ID Guarantor Name 05/25/2024 2 [employer] [facility] [id number] Sierra Maher [id number] Nanda Maher 04/03/2024 1 MEDICARE B-[place]: [facility] [employer] Nanda Maher [id number] Nanda Maher 07/07/2023 2 [employer] [facility] [employer] Nanda Maher [id number] Nanda Maher 05/27/2024 2 [facility] (MEDICARE SUPPLEMENT) [id number] Sierra Maher [id number] Nanda Maher Notes Date Note Type Note Provider Name and Address Organization Details Recorded Time 01/26/2024 text/html Pt reports she is able to do going down stairs reciprocally. Right knee feels good. Pt continues to use her walker due to pain in the left knee and lower back.Pains 0/10 in right knee at rest Johanna Hurtado PTA [address], [place], [address], [facility] 01/29/2024 22:47:28 01/31/2024 text/html Pt reports she fell yesterday but did not hit her knee on the ground. Pt had muscle relaxor which helps for her spasm.Pains 0/10 at rest. Zafar Yoder DPT [address], [place], [address], [facility] 01/31/2024 10:53:56 02/02/2024 text/html Pt reports she fell yesterday but did not hit her knee on the ground. Pt had muscle relaxor which helps for her spasm.02/01. Pt states no pain and no spasm in her knee today. Pains 0/10 at rest. Zafar Yoder DPT [address], [place], [address], [facility] 02/02/2024 16:50:32 02/07/2024 text/html Pt reports has been doing well. Still has some swelling and bruising from fall last week.Pain is 0/10 at rest. Johanna Hurtado PTA [address], [place], [address], [facility] 02/09/2024 01:39:38 OBGyn Episode No OBEpisode recorded.
== END 2024-09-27 11:27 | disposition home or self-care (01) ==
PROVIDERS: PCP Internal Medicine; Visit Provider Urology
DX: N81.9 Female genital prolapse, unspecified (principal); N39.0 Urinary tract infection, site not specified

== ENCOUNTER → 2024-09-27 10:22 | Outpatient (BNVA) | payer MEDICARE, OTHER, SELFPAY | PROVIDERS: PCP Internal Medicine; Visit Provider Urology | DX: N81.9 Female genital prolapse, unspecified (principal); A49.9 Bacterial infection, unspecified; Z16.12 Extended spectrum beta lactamase (ESBL) resistance; N39.0 Urinary tract infection, site not specified | CPT/HCPCS: 81003; 99212 ==

== ENCOUNTER 2025-02-06 09:27 | Outpatient (AMB) | payer MEDICARE, OTHER, SELFPAY ==
--- NOTE | 2025-02-06 09:31 | MHC.PC.OV ---
Intake Visit Reasons: SWV [id number] Allergies No Known Allergies Allergy (Verified 09/27/24 10:47) Tobacco use date assessed: 05/17/24 Dental Screening Dental Screen Date: 05/17/24 [facility] Surgical History History of left knee replacement History of cataract surgery Family History Mother No problems noted. Father No problems noted. Son No problems noted. Son No problems noted. Daughter No problems noted. Social History Housing: Apartment Alcohol intake: current Alcohol intake frequency: a few times a month Comment: ocnce a week 1 glass Patient Tobacco Use Status: Never used Tobacco Tobacco use type: Cigarette e-Cigarette/Vaping Use: Never Used Second Hand Smoke Exposure: No service: No Current occupational status: retired Current occupation: RETIRED Current occupational exposures/hazards: No Cognitive needs: Yes (Walker) Hearing needs: No Vision needs: Yes Questionnaire Thrive Questionnaire Date Thrive assessed: 05/17/24 JOHN-7 AMB Questionnaire JOHN-7 Date JOHN - 7 assessed: 05/17/24 Source: Developed by Drs. Kamlesh Mckeon, Annette Palacio, Saurabh Mims and colleagues, with an educational lexi from [employer]. Physical exam (Primary Care) Tobacco/Smoking Status: Tobacco use Status Tobacco use date assessed 05/17/24 07/29/24 09:38 Patient Tobacco Use Status Never used Tobacco 07/29/24 09:38 Tobacco use type Cigarette 07/29/24 09:38 e-Cigarette/Vaping Use Never Used 07/29/24 09:38 Thrive Assessment: Date of Thrive Assessment Date Thrive assessed 05/17/24 07/29/24 09:38 Coding
[2025-02-06 09:32] VITALS: BP 170/100; PULSE 60; RESP 18; O2SAT 94; BMI 22.5
--- NOTE | 2025-02-06 09:34 | AM.OFFVISMDC ---
Intake Vital Signs 02/06/25 09:32 02/06/25 10:13 Height 4 ft 11 in Weight 111 lb 6 oz BMI 22.5 BP 170/100 H 170/88 H Blood Pressure Location Lt brachial Lt brachial Position Sitting Sitting Respiration 18 Pulse 60 Pulse Source Pulse Oximeter Temp Source Temporal Artery Scan Pulse Oximetry (%) 94 Oxygen Delivery Method Room Air Intake Visit Reasons: [facility] G0439 Punch Box Tender Required: No Accompanied by: Self / Same As Patient Allergies No Known Allergies Allergy (Verified 02/06/25 09:52) Medication List - Last Reconciled 02/06/25 by Gwen Ogden PA-C apixaban (Eliquis) 5 mg PO BID cholecalciferol (vitamin D3) PO denosumab (Prolia) 60 mg subcut [id number] food supplemt, lactose-reduced (Boost) PO losartan-hydrochlorothiazide 50-12.5 mg 1 tab PO DAILY 90 days [magnesium PO] methenamine hippurate 1 g PO BID 30 days nitrofurantoin macrocrystal 100 mg PO BID 14 days tramadol 50 mg PO TID PRN zolpidem 5 mg PO BEDTIME PRN 90 days HPI V G0439 HPI Details 89 year old female with past medical history of DVT, hypertension, insomnia, osteoporosis, CKD, HLD last seen 04/2024 coming in for AWV. Presenting for an annual wellness examination. Recent blood pressure readings have been elevated, with a current reading of 170/88 mmHg. The patient is advised to monitor her blood pressure at home and report any readings above 140/90 mmHg. She does monitor the blood pressure at home and values have been in the 120 systolic over 80s diastolic. The patient has been effectively managing UTI prevention with the help of specialists, resulting in no recent infections. mammogram: declined DEXA: [facility] through [facility] colonoscopy:declined eye doctor: [facility] vaccines: [facility] Surgical History History of left knee replacement History of cataract surgery Family History Mother No problems noted. Father No problems noted. Son No problems noted. Son No problems noted. Daughter No problems noted. Social History Housing: Apartment Alcohol intake: current Alcohol intake frequency: a few times a month Comment: ocstaceye a week 1 glass Patient Tobacco Use Status: Never used Tobacco Tobacco use type: Cigarette e-Cigarette/Vaping Use: Never Used Second Hand Smoke Exposure: No service: No Current occupational status: retired Current occupation: RETIRED Current occupational exposures/hazards: No Cognitive needs: Yes (Walker) Hearing needs: No Vision needs: Yes Questionnaire Medicare Wellness Checkup What is your age?: 80 or older What gender do you identify with?: female During the past 4 weeks, how much have you been bothered by emotional problems such as feeling anxious, depressed, irritable, sad or downhearted, and blue?: slightly During the past 4 weeks, has your physical & emotional health limited your social activities with family, friends, neighbors, or groups?: not at all During the past 4 weeks, how much bodily pain have you generally had?: very mild pain During the past 4 weeks, was someone available to help you if you needed & wanted help?: yes, as much as I wanted During the past 4 weeks, what was the hardest physical activity you could do for at least 2 minutes?: very light Can you get to places out of walking distance without help? (For eg., can you travel alone on buses, taxis or drive your car?): No Can you go shopping for groceries or clothes without someone's help?: Yes Can you prepare your own meals?: No Can you do your housework without help?: Yes Because of any health problems, do you need the help of another person with your personal care needs such as eating, bathing, dressing or getting around the house?: No Can you handle your own money without help?: Yes During the past 4 weeks, how would you rate your health in general?: good During the past 4 weeks how have things been going for you?: pretty well Are you having difficulties driving your car?: no Do you always fasten your seat belt when you are in a car?: yes, usually During past 4 weeks, have you been bothered by the following: never: Falling or dizzy when standing up, Sexual problems?, Trouble eating well?, Teeth or denture problems?, Problems using the telephone? and Tiredness or fatigue? Have you fallen 2 or more times in the past year?: No Are you afraid of falling?: Yes Are you a smoker?: no During the past 4 weeks, how many drinks of wine, beer, or other alcoholic beverages did you have?: 1 drink or less per week Do you exercise for about 20 minutes 3 or more times a week?: yes, most of the time Have you been given information to help with the following?: no: Keeping track of your medications? How often do you have trouble taking medicines the way you have been told to take them?: I always take medicine as prescribed How confident are you that you can control & manage most of your health problems?: very confident What is your race?: White Mini Mental State Exam (MMSE) Orientation What is the (year) (season) (date) (day) (month)?: year, season, date, day and month Where are we (state) (county) (town or city) (hospital) (floor)?: state, county, town or city, hospital/clinic and floor Registration Name of 3 unrelated objects clearly and slowly, then ask patient to repeat all 3 of them. (1st repeat determines score. Make sure they can repeat all three): object 1, object 2 and object 3 Score Score: 13 PHQ-9 Over the last 2 weeks, how often have you been bothered by any of the following problems? 1. Little interest or pleasure in doing things: not at all 2. Feeling down, depressed, or hopeless: not at all 3. Trouble falling or staying asleep, or sleeping too much: nearly every day 4. Feeling tired or having little energy: not at all 5. Poor appetite or overeating: nearly every day 7. Trouble concentrating on things, such as reading the newspaper or watching television: not at all 8. Moving or speaking so slowly that other people could have noticed. Or the opposite - being so fidgety or restless that you have been moving around a lot more than usual: not at all 9. Thoughts that you would be better off or of hurting yourself in some way: not at all Depression Screening Interpretation: Positive Depression Screening Follow-up: Existing condition and Declines treatment Depression Screening Done: Yes Source: Developed by Drs. Kamlesh Mckeon, Annette Palacio, Saurabh Mims and colleagues, with an educational lexi from [employer]. Review of Systems Const Denies body aches, Denies chills, Denies fever(s), Denies headache(s) and Denies poor appetite Eyes Reports no additional complaints ENT Denies dysphagia, Denies dizziness, Denies headache(s) and Denies odynophagia Card Denies chest pain, Denies syncope, Denies edema, Denies irregular heart rhythm, Denies lightheadedness and Denies dyspnea Resp Denies cough and Denies dyspnea GI Denies abdominal pain, Denies constipation, Denies dysphagia, Denies diarrhea, Denies nausea, Denies odynophagia and Denies vomiting Reports no additional complaints Musc Reports no additional complaints and Denies abnormal gait Skin/Breast Reports system reviewed and no additional complaints, except as documented Neuro Denies abnormal gait, Denies dizziness, Denies syncope and Denies headache(s) Psych Reports no additional complaints Physical Exam Vital Signs: Last Vital Signs Pulse 60 02/06/25 09:32 Resp 18 02/06/25 09:32 BP 170/88 H 02/06/25 10:13 Pulse Ox 94 02/06/25 09:32 Oxygen Delivery Method Room Air 02/06/25 09:32 BMI result Body Mass Index 22.5 Const General: cooperative, healthy appearing, comfortable and no acute distress Orientation/consciousness: patient oriented x3 HEENT Head: Yes normocephalic Ears: hearing grossly normal bilaterally, external ears normal, TM's normal bilaterally and EAC's normal General nose exam: Normal external nose present Face and sinus: Yes normal facial exam and Yes sinuses nontender Mouth: Normal oral and palatal mucosa present and tongue normal Throat: Yes posterior oropharynx normal Eyes General: appearance normal, both eyes and all related structures Conjunctivae: conjunctivae normal Pupils: Equal, round and reactive pupils present EOM: EOMs intact bilaterally and No Nystagmus present Neck Neck: Yes normal visual inspection, Yes full ROM and Yes no lymphadenopathy Chest Chest palpation & inspection: normal inspection of the chest Resp Effort & Inspection: normal respiratory effort Auscultation: clear to auscultation bilaterally, no crackles, no rales, no rhonchi, no wheezes and breath sounds present Cardio Rate: regular rate Rhythm: regular rhythm Peripheral pulses: radial pulses present and dorsalis pedis present GI Inspection: Yes normal to inspection and No Abdominal wall edema Palpation (GI): Soft to palpation, not firm and nontender Auscultation: normal bowel sounds Rectal Exam - Female: deferred General: Yes no CVA tenderness Back/Spine/Pelvis Back: no CVA tenderness Skin General skin exam: no rashes or lesions noted Neuro General: patient oriented x3 Cranial nerves: Yes Equal, round and reactive pupils present, Yes Midline tongue present, Yes Ability to bilaterally elevate shoulders present and No Nystagmus present Gait exam (Neuro): Normal gait present Extrem General: Yes normal to inspection, Yes full ROM, No no pedal edema and No edema Psych Speech and movement: Normal speech and movement present Affect: normal affect Insight: Good insight present (Psych) Judgement: Good judgement present (Psych) Assessment & Plan Assessment & Plan (1) Annual wellness visit: Code(s): Z00.00 - Encounter for general adult medical examination without abnormal findings Plan: [place] of care was reviewed with patient patient was provided with a written screening schedule. Healthcare proxy/ MOLST forms were reviewed and patient has completed these previously. Blood work is up-to-date and has been reviewed with the patient today. She has good cognitive awareness is able to make informed decisions about her own health. Healthy diet and regular exercise is encouraged. (2) Insomnia: Code(s): G47.00 - Insomnia, unspecified Plan: Currenlty using ambien with good benefit. (3) Anemia: Code(s): D64.9 - Anemia, unspecified Qualifiers: Anemia type: other cause Other causes of anemia: nutritional, other Qualified Code(s): D53.8 - Other specified nutritional anemias Plan: Ordered for updated blood work. (4) Pelvic prolapse: Comment: Cause of recurrent UTI,prolapse,urinary stasis Code(s): N81.9 - Female genital prolapse, unspecified Plan: Continue to follow with Urology and is on methanamine for UTI prevention. (5) CKD (chronic kidney disease), stage III: Comment: Dr. Mica Mccormick Code(s): N18.30 - Chronic kidney disease, stage 3 unspecified Plan: Continue to monitor blood work, avoid kidney irritants and stay well hydrated. (6) Osteoporosis: Comment: 02/2022 Code(s): M81.0 - Age-related osteoporosis without current pathological fracture Qualifiers: Osteoporosis type: age-related Presence of current pathological fracture: without current pathological fracture Qualified Code(s): M81.0 - Age-related osteoporosis without current pathological fracture Plan: Following with [facility] treatment [facility] for Prolia injections and having DEXA scans managed through their office. (7) Deep venous thrombosis: Comment: 2019, Left leg January 2024 post left knee replacement 12/25/2023 Code(s): I82.409 - Acute embolism and thrombosis of unspecified deep veins of unspecified lower extremity Qualifiers: Affected thrombotic vein of extremity: popliteal Chronicity: acute DVT location: lower extremity Laterality: left Qualified Code(s): I82.432 - Acute embolism and thrombosis of left popliteal vein Plan: On ELiquis BID. (8) Hypercholesterolemia: Code(s): E78.00 - Pure hypercholesterolemia, unspecified Plan: Avoid foods that are high in cholesterol such as red meat, fried foods, eggs and baked goods. Triglyceride goal of less than 150 and LDL goal of less than 100. Ordered for updated blood work. (9) Hypertension: Code(s): I10 - Essential (primary) hypertension Qualifiers: Hypertension type: primary hypertension Qualified Code(s): I10 - Essential (primary) hypertension Plan: Continue on current blood pressure medication. Avoid salt intake and encourage healthy diet and regular exercise. Blood pressure elevated in the office today but has been normal at home. Plan to continue to monitor at home and reach out if exceeds 140/90. She does admit to white coat hypertension. She will bring in her blood pressure monitor to next visit to ensure it is accurate Plan During the visit, we discussed the importance of monitoring blood pressure at home and reporting any elevated readings. The patient was informed about the positive depression screening and her options for therapy, which she declined. We also reviewed her current preventative measures for UTI and dry eye management, emphasizing the need for regular follow-ups with her specialists. This note was constructed using voice recognition software. While every effort has been made to ensure accuracy and digital marketing strategist, still areas may have been included sometimes these areas may affect the content or meeting of the given symptoms. Total time spent caring for the patient today was 30 minutes. This includes time spent before the visit reviewing the chart, time spent during the visit, and time spent after the visit and documentation. Patient was informed and verbally consented to the use of an ambient scribe for clinic note documentation during this visit. Orders: Orders Comprehensive Met. Panel Today N18.30 - Chronic kidney disease, stage 3 unspecified, Z00.00 - Encounter for general adult medical examination without abnormal findings TSH reflex Free T4 Today Z13.29 - Encounter for screening for other suspected endocrine disorder Vitamin B12 and Folate Today Z13.21 - Encounter for screening for nutritional disorder Vitamin D 25-OH Total Today Z13.21 - Encounter for screening for nutritional disorder Lipid Panel Today E78.00 - Pure hypercholesterolemia, unspecified Complete Blood Count Auto Diff Today D53.8 - Other specified nutritional anemias, Z13.0 - Encounter for screening for diseases of the blood and blood-forming organs and certain disorders involving the immune mechanism Coding Level of Care Code Medicare Subsequent (G0439) Diagnoses Annual wellness visit Z00.00 Insomnia G47.00 Other specified nutritional anemias D53.8 Anemia type: other cause Other causes of anemia: nutritional, other Pelvic prolapse N81.9 CKD (chronic kidney disease), stage III N18.30 Age-related osteoporosis without current pathological fracture M81.0 Osteoporosis type: age-related Presence of current pathological fracture: without current pathological fracture Acute deep vein thrombosis (DVT) of popliteal vein of left lower extremity I82.432 Affected thrombotic vein of extremity: popliteal Chronicity: acute DVT location: lower extremity Laterality: left Hypercholesterolemia E78.00 Primary hypertension I10 Hypertension type: primary hypertension CPT Codes Advance Care Planning - Advance Care Planning discussion: On file, no changes ([id number]) Advance Care Planning - Time spent: 1-15 minutes, on File ([id number]) Advance Care Planning Advance Care Planning discussion: On file, no changes Date of discussion: 02/06/25 Who was present: myself and patient Forms completed: Health Care Proxy and MOLST Time spent: 1-15 minutes, on File
[2025-02-06 10:13] VITALS: BP 170/88
--- OUTSIDE RECORDS SUMMARY | 2025-02-06 10:34 | XMS_ITS | Clinical Summary ---
Author Organization [facility] Address [address] [place] [address] Care Team Providers Care Dimension Stone Quarry Supervisor Name Role Phone Unavailable Primary Care Provider Unavailabl e Social History Tobacco Use Types Packs/Day Years Used Date Smoking Tobacco: Never Assessed Comments Unknown Sex and Gender Information Value Date Recorded Sex Assigned at Not on file Legal Sex Female 12:11 PM EDT Gender Identity Not on file Sexual Orientation Not on file Plan of Treatment Health Maintenance Due Date Last Done Comments Advance Care Planning 1935 DTaP/Tdap/Td Vaccines (1 - Tdap) 11/12/1954 Pneumococcal Vaccines 50+ (1 of 1 - PCV) 11/12/1985 Zoster (Shingles) Vaccine (1 of 2) 11/12/1985 RSV Vaccine 50 years and old er and Patients (1 - 1-dose 75+ series) 11/12/2010 COVID-19 Vaccine ( - 2023-2 5 season) 2024 Hepatitis B Vaccines Aged Out No long er eligible based on patient's age to complete this topic
--- OUTSIDE RECORDS SUMMARY | 2025-02-06 10:34 | XMS_ITS | Encounter Summary ---
Author Organization [facility] Address [address] [place] [address] Care Team Providers Care Computer Typesetter Keyliner Name Role Phone Post, Jeremias Meraz MD Primary Care Provider Encounter Details Date Type Department Care Team (Late st Contact Info) Description 03/06/2023 Scanned Document [facility] Department of [facility] Medicine & Nephrology [place] [address] [place] [address] [address] [place] [id number] Post, Jeremias Meraz MD [address] [address] Social History Tobacco Use Types Packs/Day Years [...] on filedocumented in this encounter Care Teams Computer Typesetter Keyliner Relationship Specialty Start Date End Date Post, Jeremias Meraz MD [address] [address] PCP - General 04/16/23 documented as of this encounter
== END 2025-02-06 10:18 | disposition home or self-care (01) ==
LOC: HO.HMCH 09:27
PROVIDERS: PCP Internal Medicine
DX: Z00.00 Encounter for general adult medical examination without abnormal findings (principal); N18.30 Chronic kidney disease, stage 3 unspecified; I12.9 Hypertensive chronic kidney disease with stage 1 through stage 4 chronic kidney disease, or unspecified chronic kidney disease; I82.432 Acute embolism and thrombosis of left popliteal vein; G47.00 Insomnia, unspecified; D53.8 Other specified nutritional anemias; N81.9 Female genital prolapse, unspecified; M81.0 Age-related osteoporosis without current pathological fracture; E78.00 Pure hypercholesterolemia, unspecified

== ENCOUNTER 2025-04-01 09:36 | Outpatient (REF) | payer MEDICARE, OTHER, SELFPAY ==
[2025-04-01 09:46] LABS: MANUAL DIFF FLAG NO
[2025-04-01 10:21] LABS: Hematocrit 38.7 % (37.0-47.0); Hemoglobin 12.5 g/dl (12.0-16.0); Imm Gran Abs Auto 0.06 X10*3/uL (0.00-0.03); Imm Gran Pct Auto 0.8 % (0.0-0.4); Lymphocytes Absolute Auto 2.3 X10*3/uL (1.2-4.9); Mean Corpuscular HGB Conc 32.3 g/dl (31.0-35.0); Mean Corpuscular Hemoglobin 28.5 pg (27.0-33.0); Mean Corpuscular Volume 88.2 fL (80.0-98.0); NRBC Abs Auto 0.000 X10*3/uL (0.0-0.012); NRBC Pct Auto 0.0 /100WBC (0.0-0.2); Platelet Count 274 X10*3/uL (160-400); Red Blood Count 4.39 X10*6/uL (4.20-5.50); White Blood Count 7.3 X10*3/uL (4.8-10.8)
[2025-04-01 10:55] LABS: Alanine Aminotransferase 15 U/L (0-31); Albumin Level 4.1 g/dL (3.5-5.0); Alkaline Phosphatase 79 U/L (39-117); Anion Gap 14 (12-20); Aspartate Amino Transferase 20 U/L (5-31); Blood Urea Nitrogen 24 mg/dL (9-16); Calcium 9.3 mg/dL (8.4-10.2); Carbon Dioxide 27 mmol/L (22-29); Chloride 105 mmol/L (96-108); Cholesterol 225 mg/dL (<200); Estimated Glomerular Filt Rate 55; HDL Cholesterol 67 mg/dL (>40); Potassium 4.1 mmol/L (3.3-5.1); Sodium 142 mmol/L (135-145); Total Protein 6.5 g/dL (6.5-8.0); Triglycerides 59 mg/dL (<150)
[2025-04-01 11:19] LABS: Folate 11.2 ng/mL (> or = 4.0); Vitamin B12 358 pg/mL (200-900)
--- OUTSIDE RECORDS SUMMARY | 2025-04-01 11:20 | XMS_ITS | Clinical Summary ---
Author Organization [facility] Address [address] [place] [address] Care Team Providers Care Dinkey Motor Operator Name Role Phone Unavailable Primary Care Provider [...] 75+ series) 11/12/2010 COVID-19 Vaccine ( - 2024-2 6 season) 2024 Hepatitis B Vaccines Aged Out No long er eligible based on patient's age to complete this topic
--- OUTSIDE RECORDS SUMMARY | 2025-04-01 11:20 | XMS_ITS ---
[facility] Name [facility] Organization Unknown Care Team Organization Name Specialty Phone Email Start Date End [facility] Post Primary Care 05/07/2023
--- OUTSIDE RECORDS SUMMARY | 2025-04-01 11:20 | XMS_ITS | Encounter Summary ---
Author Organization [facility] Address [address] [place] [address] Care Team Providers Care Trust Administrator Name Role Phone Post, Jeremias Meraz MD Primary Care Provider Encounter Details Date Type Department Care Team (Late st Contact Info) Description 03/06/2023 Scanned Document [facility] Department of Internal Medicine & Nephrology [place] [address] [place] [address] [address] [place] [id number] Post, Jeremias Meraz MD [address] [address] Social History Tobacco Use Types Packs/Day Years [...] on filedocumented in this encounter Care Teams Trust Administrator Relationship Specialty Start Date End Date Post, Jeremias Meraz MD [address] [address] PCP - General 04/16/23 documented as of this encounter
== END 2025-04-01 09:37 | disposition home or self-care (01) ==
LOC: HO.LAB 09:36
PROVIDERS: PCP Internal Medicine
DX: Z00.00 Encounter for general adult medical examination without abnormal findings (principal); Z13.21 Encounter for screening for nutritional disorder; Z13.29 Encounter for screening for other suspected endocrine disorder; Z13.0 Encounter for screening for diseases of the blood and blood-forming organs and certain disorders involving the immune mechanism; D53.8 Other specified nutritional anemias; E78.00 Pure hypercholesterolemia, unspecified; N18.30 Chronic kidney disease, stage 3 unspecified
CPT/HCPCS: 36415; 80053; 80061; 82306; 82607; 82746; 84443; 85025